=== PATIENT | female | born 1980 | race Caucasian/White ===

== ENCOUNTER 2025-04-10 15:33 | Emergency (ER) | payer BC, OTHER, SELFPAY ==
[2025-04-10 15:43] VITALS: BP 108/62; PULSE 93; RESP 16; TEMP 36.9; O2SAT 98
--- NOTE | 2025-04-10 16:11 | ED.EXTPRO ---
HPI - Extremity Problem General Chief complaint: Extremity Problem,Nontraumatic Stated complaint: Blood Clot/Knot R leg Time Seen by Provider: 04/10/25 15:57 Source: patient and RN notes reviewed Mode of arrival: ambulatory Limitations: no limitations History of Present Illness HPI Narrative: Patient presents today concerned that she may have a blood clot to her right anterior lower leg. Six days ago she was in her mobility scooter and struck her leg on the under part of a table. States it bruised immediately then became painful a few days ago. Today she noted a hard knot underneath the bruise. Patient takes Xarelto for factor 5 Leiden. States she has been on the Xarelto for approximately 10 years. She has had a DVT in the other leg while on the Xarelto. Related Data Home Medications ?Medication ?Instructions ?Recorded ?Confirmed ?Last Taken ?Type Belsomra 04/10/25 Unknown History Viibryd 04/10/25 Unknown History albuterol sulfate 2.5 mg/3 mL mg 04/10/25 Unknown History (0.083 %) solution for nebulization albuterol sulfate 90 mcg/actuation inhalation 04/10/25 Unknown History aerosol inhaler aripiprazole 2 mg tablet mg 04/10/25 Unknown History atorvastatin 10 mg tablet mg 04/10/25 Unknown History cyanocobalamin (vitamin B-12) mcg 04/10/25 Unknown History 1,000 mcg/mL injection solution erenumab-aooe 70 mg/mL mg subcut 04/10/25 Unknown History subcutaneous auto-injector (Aimovig Autoinjector) famotidine 20 mg tablet mg 04/10/25 Unknown History fentanyl 25 mcg/hr transdermal 04/10/25 Unknown History patch gabapentin 300 mg capsule mg 04/10/25 Unknown History methocarbamol 750 mg tablet mg 04/10/25 Unknown History metoprolol succinate 25 mg mg PO 04/10/25 Unknown History tablet,extended release 24 hr ondansetron HCl 4 mg tablet mg 04/10/25 Unknown History pantoprazole 40 mg tablet,delayed mg PO 04/10/25 Unknown History release prazosin 1 mg capsule mg 04/10/25 Unknown History rivaroxaban 20 mg tablet (Xarelto) mg 04/10/25 Unknown History rizatriptan 10 mg tablet mg 04/10/25 Unknown History ropinirole 2 mg tablet mg 04/10/25 Unknown History semaglutide 2 mg/dose (8 mg/3 mL) mg subcut 04/10/25 Unknown History subcutaneous pen injector (Ozempic) spironolactone 50 mg tablet mg 04/10/25 Unknown History trazodone 04/10/25 Unknown History Allergies Allergy/AdvReac Type Severity Reaction Status Date / Time No Known Allergies Allergy Verified 04/10/25 15:40 [facility] Past Medical History Medical History (Updated 04/10/25 @ 16:18 by Susan Leslie, [facility], ) High cholesterol Heart palpitations Migraines Chronic back pain Factor V Leiden Comments At time of signature, I have reviewed and agree with nursing past medical, surgical, social and family history unless otherwise noted. Please see nursing chart for further information. There is no relevant family history pertinent to the presenting complaint Exam Narrative: GENERAL: Well-appearing, well-nourished, and in no acute distress. HEAD: Normocephalic, atraumatic. EYES: EOMI. No redness or drainage. Conjunctivae normal. ENT: Mucous membranes pink and moist. NECK: Normal AROM. CHEST: No respiratory distress. EXTREMITIES: Right lex2cm area of ecchymosis to the proximal rehman that is tender and mildly firm to palpation. No edema of the leg. No erythema. Full range of motion of the knee and ankle. No discoloration. No tenderness to the calf. Distal sensation intact. Capillary refill. Pedal pulse normal. SKIN: Warm, dry, no rash. Capillary refill normal. Normal skin turgor. NEURO: No focal deficits. Alert and oriented x3. Gait steady. PSYCH: Normal affect. No signs of depression or anxiety. Course Course Level of Care: Express Care Visit Vital Signs Vital signs: Vital Signs Temperature 98.4 F 04/10/25 15:43 Pulse Rate 93 04/10/25 15:43 Respiratory Rate 16 04/10/25 15:43 Blood Pressure 108/62 04/10/25 15:43 Pulse Oximetry 98 04/10/25 15:43 Temperature 98.4 F 04/10/25 15:43 Pulse Rate 93 04/10/25 15:43 Respiratory Rate 16 04/10/25 15:43 Blood Pressure 108/62 04/10/25 15:43 Pulse Oximetry 98 04/10/25 15:43 Reviewed MDM - Extremity (Nontraumatic) MDM Narrative Medical decision making narrative: 44-year-old female patient with history of factor 5 Leiden presents today after striking her right rehman on a table 6 days ago resulting in a bruise to the leg immediately but did not develop pain until a few days afterwards. She noted a knot under the bruise today in became concerned that she may have a DVT. Patient currently takes Xarelto, but states she has had a DVT in the past while on Xarelto. Denies pain in the calf or foot. Upon exam there is a small bruise to the proximal rehman which is tender to palpation and slightly firm. No surrounding redness or swelling, or redness or swelling to the remainder of the leg or foot. Gave patient the option of going to the ED to get rx for Ultrasound to be done the next day as there is unlikely to be an sterile technician on site at this time of day, or going to the ED tomorrow for further evaluation, or calling her PCP on Saturday to schedule an outpatient ultrasound. Patient states she will call her PCP on Saturday. The location of the bruising on the anterior proximal rehman, the exam of the leg, and the fact that patient is already on Xarelto, in my opinion, make this injury low risk for DVT at this time. Strict ED precautions provided for patient. VSS. Differential Diagnosis Differential diagnosis: Likely cellulitis, deep vein thrombosis of lower extremity and other (Hematoma, contusion) Critical Care Time Critical Care Time Critical Care Time: No Discharge Plan Discharge Clinical Impression: Traumatic ecchymosis of right lower leg Qualifiers: Encounter type: initial encounter Qualified Code(s): S80.11XA - Contusion of right lower leg, initial encounter Patient Disposition: Home Condition: Stable Additional Instructions: Please either proceed to the emergency department tomorrow morning or follow-up with your PCP for further evaluation of your leg on Saturday. As discussed, if symptoms worsen to include shortness of breath, chest pain, swelling, redness, or other discoloration to your leg, please go to the ER immediately. Patient Language: Israeli Prescriptions: No Action albuterol sulfate 2.5 mg /3 mL (0.083 %) solution for nebulization atorvastatin 10 mg tablet prazosin 1 mg capsule ondansetron HCl 4 mg tablet rizatriptan 10 mg tablet famotidine 20 mg tablet methocarbamol 750 mg tablet ropinirole 2 mg tablet pantoprazole 40 mg tablet,delayed release (DR/EC) PO cyanocobalamin (vitamin B-12) 1,000 mcg/mL solution gabapentin 300 mg capsule metoprolol succinate 25 mg tablet extended release 24 hr PO fentanyl 25 mcg/hr patch 72 hour albuterol sulfate 90 mcg/actuation HFA aerosol inhaler INHALATION spironolactone 50 mg tablet aripiprazole 2 mg tablet Xarelto 20 mg tablet Aimovig Autoinjector 70 mg/mL auto-injector SUBCUT Ozempic 2 mg/dose (8 mg/3 mL) pen injector SUBCUT [facility]d tra[facility]odone [facility] Follow-up/Referrals: Kay Marie MD [Primary Care Provider] - Time of Disposition: 16:08
== END 2025-04-10 16:02 | disposition home or self-care (01) ==
PROVIDERS: Emergency Provider Nurse Practitioner; PCP Family Medicine
DX: S80.11XA Contusion of right lower leg, initial encounter (principal); W22.8XXA Striking against or struck by other objects, initial encounter; D68.51 Activated protein C resistance; E78.00 Pure hypercholesterolemia, unspecified; Z86.718 Personal history of other venous thrombosis and embolism; Z79.01 Long term (current) use of anticoagulants
CPT/HCPCS: 99202; G0463

== ENCOUNTER 2025-07-07 10:56 | Outpatient (CLI) | payer BC, OTHER, SELFPAY ==
--- OUTSIDE RECORDS SUMMARY | 2025-07-07 05:00 | XMS_ITS ---
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 108 (90 Base) MCG/ACT Aerosol Solution Inhalation Pregabalin 300 MG Capsule Oral Cyanocobalamin 1000 MCG/ML Solution Injection Rizatriptan Benzoate 10 MG Tablet Oral Naloxone HCl 4 MG/0.1ML Liquid Nasal HYDROcodone-Acetaminophen 5-325 MG Tablet Oral Vitamin D , Notes to Pharmacist: *Pick strength-form from [facility] for eRX*Xarelto 20 MG Tablet Oral Spironolactone 50 MG Tablet Oral Metoprolol Succinate ER 50 MG Tablet Extended Release 24 Hour Oral Nystatin 084591 UNIT/GM Powder External Ondansetron 4 MG Tablet Disintegrating Oral fentaNYL 12 MCG/HR Patch 72 Hour Transdermal Vilazodone HCl 20 MG Tablet 1 tablet with food Oral Once a day , Notes to Pharmacist: dose decreasePrazosin HCl 5 MG Capsule 2 capsules at bedtime Oral Once a day , stop date 10/05/2025traZODone HCl 150 MG Tablet 2 tablets at bedtime Oral Once a day Belsomra 20 MG Tablet 1 tablet at bedtime Orally Once a day , stop date 10/05/2025Qulipta 60 MG Tablet Oral Taking Miebo 1.338 GM/ML Solution 1 drop into affected eye as needed Ophthalmic Four times a day Taking Metoprolol Succinate ER 25 MG Tablet Extended Release 24 Hour Oral Taking Ozempic (1 MG/DOSE) 4 MG/3ML Solution Pen-injector Subcutaneous , Notes to Pharmacist: *Pick strength-form from [facility] for eRX*Taking Pregabalin 150 MG Capsule Oral Taking rOPINIRole HCl 2 MG Tablet Oral Taking oxyCODONE- Acetaminophen 5-325 MG Tablet Oral Taking Perphenazine 4 mg Tablet Oral Taking Atorvastatin Calcium 10 MG Tablet Oral Taking Famotidine 20 MG Tablet Oral Taking ProAir HFA 108 (90 Base) MCG/ACT Aerosol Solution Inhalation Taking Pregabalin 300 MG Capsule Oral Taking Cyanocobalamin 1000 MCG/ML Solution Injection Taking Rizatriptan Benzoate 10 MG Tablet Oral Taking Naloxone HCl 4 MG/0.1ML Liquid Nasal Taking HYDROcodone-Acetaminophen 5-325 MG Tablet Oral Taking Vitamin D , Notes to Pharmacist: *Pick strength-form from [employer] for eRX*Taking Xarelto 20 MG Tablet Oral Taking Spironolactone 50 MG Tablet Oral Taking Metoprolol Succinate ER 50 MG Tablet Extended Release 24 Hour Oral Taking Nystatin 718501 UNIT/GM Powder External Taking Ondansetron 4 MG Tablet Disintegrating Oral Taking fentaNYL 12 MCG/HR Patch 72 Hour Transdermal Taking Vilazodone HCl 20 MG Tablet 1 tablet with food Oral Once a day , Notes to Pharmacist: dose decreaseTaking Prazosin HCl 5 MG Capsule 2 capsules at bedtime Oral Once a day , stop date 10/05/2025Taking traZODone HCl 150 MG Tablet 2 tablets at bedtime Oral Once a day Taking Belsomra 20 MG Tablet 1 tablet at bedtime Orally Once a day , stop date 10/05/2025Taking Qulipta 60 MG Tablet Oral Not-TakingPrazosin HCl 1 MG Capsule 1 capsule at bedtime Orally Once a day take with prazosin 5mg capsulesPrazosin HCl 1 MG Capsule 1 capsule at bedtime Orally Once a day Medication List reviewed and reconciled with the patientNot-Taking Prazosin HCl 1 MG Capsule 1 capsule at bedtime Orally Once a day take with prazosin 5mg capsulesNot-Taking Prazosin HCl 1 MG Capsule 1 capsule at bedtime Orally Once a day Medication List reviewed and reconciled with the patient * Allergies: S ULFA (SULFONAMIDE ANTIBIOTICS): Allergy - Onset Date 11/18/2023Xanax: Allergy - Onset Date 11/18/2023yesAllergies Verified. Objective: * Vitals: B P:125/83mm Hg, HR:82/min, Wt:330lbs, Wt-k.69 kg, Ht: 72.00 in, Ht-cm: 182.88 cm, BMI:44.75Index, Body Surface Area: 2.75. * Examination: G eneral Examination: M ental Status Examination The patient appeared cooperative throughout the evaluation. Her speech was coherent and goal-directed as she provided a detailed chronological account of her symptoms and medical history. Her mood was described through her own words as experiencing periods where she want[s] to kill anyone and everything and hate[s] everything in the premenstrual period, contrasting with her normal state once menstruation begins. She described feeling really depressed and experiencing major depression during the premenstrual phase, though she clarified not that I want to kill myself. Her thought content revealed no current suicidal ideation, as she explicitly stated she does not want to kill herself presently. However, she disclosed a past history of suicidal and homicidal ideation, reporting a previous incident where she tried to kill myself and my mom and told her mother I want to harm you, which occurred during a severe adverse medication reaction. The patient demonstrated good insight into her condition, recognizing the cyclical nature of her symptoms in relation to her menstrual cycle and understanding that her existing mood disorder may be exacerbated premenstrually. Her judgment appeared intact as evidenced by her proactive approach to seeking help, planning for educational accommodations, and her ability to recognize when she needed assistance during her previous crisis. Assessment: * Assessment: 1. M ajor depressive disorder, recurrent, moderate - F33.1 (Primary) 2 . G eneralized anxiety disorder - F41.1 3 . C hronic posttraumatic stress disorder - F43.12 4 . N icotine use - Z72.0 5 . O ther insomnia - G47.09 6 . M ild binge-eating disorder - F50.810 Plan: * Treatment: 2. C hronic posttraumatic stress disorder Notes: cont prazosin 3. O ther insomnia Continue Prazosin HCl Capsule, 5 MG, 2 capsules at bedtime, Oral, Once a day, 30 days, 60 Capsule, Refills 3; C ontinue traZODone HCl Tablet, 150 MG, 2 tablets at bedtime, Oral, Once a day, 30 days, 60 Tablet, Refills 3; C ontinue Belsomra Tablet, 20 MG, 1 tablet at bedtime, Orally, Once a day, 30 days, 30 Tablet, Refills 3. 4. O thers Notes: Kim Arnold presents with worsening premenstrual symptoms over the past 5 months, including severe mood changes, irritability, increased appetite, and sleep disturbances occurring 1-2.5 weeks before menstruation, along with concerns about academic accommodations for upcoming school enrollment. Premenstrual mood exacerbation Assessment: Patient reports significant worsening of premenstrual symptoms starting approximately 5 months ago, with severe mood changes including irritability, anger, increased appetite, sadness, and sleep disturbances occurring 1-2.5 weeks before menstruation. Symptoms resolve once menstruation begins. Previously had mild PMS lasting only 3 days, but current presentation represents marked deterioration. Given existing mood disorder, this represents premenstrual mood exacerbation rather than isolated PMDD. Current medication regimen includes Venlafaxine which was recently lowered. SSRIs are typically preferred for PMDD treatment. Plan: - Taper Venlafaxine to 10 mg daily for one week, then discontinue - Start fluoxetine 20 mg daily - Consider increasing fluoxetine dose as needed once initiated Academic accommodation needs Assessment: Patient enrolled for school next semester and has physical disability, learning disabilities, and PTSD. Concerned about potential academic challenges and stress management. History suggests attention problems that may benefit from testing accommodations. Plan: - Refer for learning disability testing (not available at current facility) - Consider accommodations including recording lectures, separate testing area, extended testing time, and breaks during testing Menstrual irregularities Assessment: Patient reports menstrual cycle changes with periods now occurring every 3 weeks, compared to previous amenorrhea related to PCOS. Currently in perimenopause with planned blood work evaluation by plastics scientist. Plan: - Blood work as arranged by plastics scientist the note is transcribed using speech recognition software. It is a reflection of a visit with the patient. It might have some inaccuracy, including medication names and transcribing errors, though efforts have been made to correct them. * Procedure Codes: 9 6127 BEHAV ASSMT W/SCORE & DOCD/STAND [id number] TOBACCO NON-USER * Preventive Medicine: Screenings: D epression screening Have you had a recent depression screening? Y es * Follow Up: 4 Weeks (Reason: f/u depression, anxiety) Billing Information: * Visit Code: 90471 OFFICE OUTPATIENT VISIT 25 MINUTES DETAILED HISTORY AND EXAM/MODERATE MEDICAL DECISION MAKING. * Procedure Codes: 57882 BEHAV ASSMT W/SCORE & DOCD/STAND INSTRUMENT. 1036F TOBACCO NON-USER. * Sign off status: Completed true * Provider: HAYLEY GAITAN Date: Generated for Melissa lopes/Abran/Angelita on: 12:29 PM CDT
--- OUTSIDE RECORDS SUMMARY | 2025-07-07 12:29 | XMS_ITS | Clinical Summary ---
Author Organization [facility] Address [address] [place] [address] Care Team Providers Care Cnc Mill Operator Name Role Phone Kay Marie MD Primary Care Provider [phone] Trice Alas PA-C Unavailable [phone] Source Comments [facility],non-owned Affiliates and Associated Physician Practices is amultiple site organization consisting of ambulatory clinics and hospital sitesin [place], [place], [place] and [place]. This disclosure is being madepursuant to the Care Everywhere program and may not contain all information available regarding this patient. Last updated 18.[facility] [employer] Allergies Active Allergy Reactions Criticality Noted Date Comments Clarithromycin Anaphylaxis High 05/29/2013 Cyclobenzaprine Eye Discomfort,Unknown 10/01/19 25 EYE SWELLING Erythromycin Anaphylaxis High 05/29/2013 And related medications Fish Allergy Unknown 09/11/2024 Prednisone Psychiatric High 05/29/2013 Makes the patient Suicidal or Homicidal Rofecoxib Other 05/18/2013 unknown Shellfish Unknown 09/11/2024 Skin Adhesives Rash Medium 08/20/2024 Plastic tape Sulfa Drugs Urticaria Medium 10/27/2018 Midazolam Psychiatric Medium 08/20/2024 Emotional, panic attack Medications * Be aware that medications may not be up to date on this document. Alwaysverify current medications with the patient. PROAIR HFA 108 (90 Base) MCG/ACT inhaler Inhale 1 (one) puff by mouth every 6 hours as needed 0 12/20/19 19 Active traZODone (DESYREL) 300 MG Take 1 (one) tablet by mouth at bedtime Active atorvastatin (Lipitor) 10 MG tablet Take 1 (one) tablet by mouth once daily 12/11/19 23 Active cyanocobalamin (Vitamin B-12) injection Inject 1,000 (one thousand) mcg subcutaneously every 30 days 09/25/19 24 Active prazosin (Minipress) 1 MG capsuleIndicati ons:Nightmares Take 11 (eleven) capsules by mouth at bedtime Reasons: Frightening Dreams 06/05/20 24 Active vilazodone (Viibryd) 40 MG tablet Take 1 (one) tablet by mouth daily with breakfast 01/14/20 24 Active famotidine (Pepcid) 20 MG tablet Take 1 (one) tablet by mouth 2 times daily for 30 days 60 tablet 09/17/19 25 Active lidocaine (Lidoderm) 5 % patch Apply 2 (two) patches to skin every 24 hours for 15 days Apply patch to most painful area and remove after 12 hours. May reapply a new patch 12 hours later. 30 patch 5 5:52 PM SENIOR HEALTH PHYSICS TECHNICIAN 09/17/19 25 Active rOPINIRole (Requip) 2 MG tablet Take 1 (one) tablet by mouth at bedtime for 30 days 30 tablet 5 5:52 PM SENIOR HEALTH PHYSICS TECHNICIAN 09/17/19 25 Active gabapentin (Neurontin) 300 MG capsule Take 1 (one) capsule by mouth 2 times daily for 15 days 30 capsule 5 5:52 PM SENIOR HEALTH PHYSICS TECHNICIAN 09/17/19 25 Active acetaminophen (Tylenol) 500 MG tabletIndicatio ns:Pain Take 2 (two) tablets by mouth every 8 hours Maximum allowable Acetaminophen amount = 4 Grams (4000 mg) / 24 hours. Reasons: Pain 09/17/19 25 Active oxyCODONE, immediate release, (Oxy-Ir) 15 MG tabletIndicatio ns:Acute Pain Take 1 (one) tablet by mouth every 4 hours as needed Reasons: Acute Pain 20 tablet 5 5:52 PM SENIOR HEALTH PHYSICS TECHNICIAN 09/17/19 25 Active ramelteon (Rozerem) 8 MG tablet Take 1 (one) tablet by mouth nightly as needed for Insomnia Active bisacodyl (Dulcolax) 10 MG suppository Insert 1 (one) suppository into the rectum once daily as needed for Constipation 30 suppository 3 10/09/19 25 Active hydrOXYzine HCl (Atarax) 25 MG tablet Take 1 (one) tablet by mouth 3 times daily as needed for Itching 30 tablet 2 10/09/19 25 Active magnesium oxide (Mag-Ox) 400 MG tablet Take 1 (one) tablet by mouth 2 times daily 10/09/19 25 Active methocarbamol (Robaxin) 750 MG tablet Take 2 (two) tablets by mouth every 8 hours 90 tablet 5 10/09/19 25 Active nystatin (Mycostatin) 979270 UNIT/GM powder Apply to affected area 3 times daily 15 g 3 10/09/19 25 Active rivaroxaban (Xarelto) 20 MG tablet Take 1 (one) tablet by mouth daily with food 30 tablet 3 10/09/19 25 Active fentaNYL (Duragesic) 12 MCG/HR patch Apply 1 (one) patch to skin every 3 days 08/01/20 24 Active dexAMETHasone (Decadron) 2 MG tablet 01/22/20 25 Active Aimovig 70 MG/ML auto injector pen 02/18/20 25 Active naloxone HCl (Narcan) 4 MG/0.1ML nasal spray 12/23/19 24 Active omeprazole (PriLOSEC) 40 MG capsule 04/02/20 24 Active ondansetron, disintegrating, (Zofran ODT) 4 MG tablet Take 1 (one) tablet by mouth every 8 hours as needed 11/27/19 25 Active ondansetron (Zofran) 4 MG tablet 09/24/19 25 Active oxyCODONE-aceta minophen (Percocet) 10-325 MG tablet 12/19/19 24 Active Nurtec 75 MG tablet 11/02/19 25 Active Ozempic, 0.25 or 0.5 MG/DOSE, 2 MG/3ML SOPN 10/29/19 25 Active spironolactone (Aldactone) 50 MG tablet 01/19/20 25 Active Belsomra 15 MG tablet 1 tablet at bedtime as needed Orally Once a day for 30 days 11/11/19 25 Active Belsomra 20 MG tablet 1 tablet at bedtime Orally Once a day for 30 days 12/17/19 25 Active fentaNYL (Duragesic) 25 MCG/HR patch 12/31/19 24 Active fentaNYL (Duragesic) 25 MCG/HR patch 02/10/20 25 Active metoprolol succinate XL 24hr (Toprol XL) 50 MG tablet 02/09/20 25 Active prazosin (Minipress) 5 MG capsule 01/26/20 25 Active rOPINIRole (Requip) 1 MG tablet 12/12/19 24 Active traZODone (Desyrel) 150 MG tablet 01/26/20 25 Active Active Problems Problem Noted Date Diagnosed Date Chronic posttraumatic stress disorder 10/03/2024 Generalized anxiety disorder 10/03/2024 Moderate recurrent major depression 10/03/2024 Polyneuropathy due to type 2 diabetes mellitus 0 10/03/2024 Elevated C-reactive protein (CRP) 10/01/2024 Elevated sed rate 10/01/2024 Midline low back pain, unspe cified chronicity, unspecified whether sciatica present 10/01/2024 Gram-negative bacteremia 09/07/2024 Lumbar discitis 09/05/2024 T12 compression fracture 09/05/2024 Primary hypertension 09/05/2024 Hyperlipidemia 09/05/2024 Vulvovaginal candidiasis 09/05/2024 Antiphospholipid syndrome 09/05/2024 Lumbar pain 09/04/2024 History of DVT (deep vein thrombosis) 03/26/2022 Closed fracture of transverse process of lumbar vertebra 12/16/2020 Overview (10/03/2024): L2 bilateral non-displaced Transverse Process fractures Chronic pain of left knee 01/11/2020 Spinal stenosis of lumbar re gion without neurogenic claudication 02/24/2019 Acute bilateral low back pain with bilateral sci atica 02/18/2019 Anxiety 09/17/2018 Depression 09/17/2018 PCOS (polycystic ovarian syndrome) 09/17/2018 Thrombus 09/17/2018 Diverticulitis 11/05/2016 BIRCH (nonalcoholic steatohepatitis) 11/05/2016 Class 3 severe obesity in adult 11/05/2011 Hidradenitis suppurativa 09/24/2011 Encounters Date Type Department Care Team Description 05/12/2025 Refill [facility] 6S ACUTE [address] [place] [address] Jenny Acevedo MD Refill Request 04/07/2025 10:00 AM CDT Office Visit [facility] [address] [place] [phone] Ulices Colon MD Hunter, Kristen D, HELPDESK SPECIALIST-PERSONAL PROPERTY APPRAISER Cervical radiculopathy (Primary Dx); S/P lumbar microdiscectomy 04/07/2025 Travel from Last 3 Months Immunizations Immunization Administration Dates Next Due Covid Pfizer primary monoval ent 12+ yr 0.3mL Purple cap 09/21/2021,09/09/2021,08/09/2021,2020 FLU VACCINE QUAD IIV4 PF ID 09/17/2018 INFLUENZA VACCINE 06/09/2019,09/09/2018,05/30/20 13 INFLUENZA VACCINE, QUADR. (F LUZONE; FLULAVAL; FLUARIX; AFLURIA QUADRIVALENT; 6MO+), 0.5 ML (IIV4) 07/09/2023,07/02/2022,08/08/2021,2018 PNEUMOCOCCAL PPV VACCINE 05/19/2016 Family History Medical History Relation Name Comments Arthritis - Osteo Father 56 Arthritis - Osteo Mother 69 Arthritis - Rheumatoid Mother 69 Asthma Mother 69 CAD (Coronary Artery Disease) Mother 69 COPD - Chronic Obstructive Pulmonary Disease Mother 69 Diabetes - Type 2 Mother 69 Hypertension Mother 69 Other - Psychiatric Mother 69 Renal Disease Mother 69 Relation Name Status Comments Brother 46 COMMITTED SUICI DE Father 56 COMMITTED SUICI DE Mother 69 Social History Tobacco Use Types Packs/Day Years Used Date Smoking Tobacco: Never Smokeless Tobacco: Never Tobacco Cessation:Counseling Given: Not Answered Alcohol Use Standard Drinks/Week Comments No 0 (1 standard drink = 0.6 oz pur e alcohol) AUDIT-C Answer Date Recorded Q1: How often do you have a drink containing alcohol? Never 10/03/2024 Q2: How many drinks containi ng alcohol do you have on a typical day when you are drinking? Patient does not drink Q3: How often do you have si x or more drinks on one occasion? Never 10/03/2024 Overall Financial Resource Strain (CARDIA) Answe r Date Recorded How hard is it for you to pa y for the very basics like food, housing, medical care, and heating? Not very hard 10/03/2024 PHQ-2 Answer Date Recorded Patient Health Questionnaire-2 Score 0 02/18/2025 [facility] [place] [facility] - Occupational Stress Questionnaire Answer Date Recorded Do you feel stress - tense, restless, nervous, or anxious, or unable to sleep at night because your mind is troubled all the time - these days? To some extent 10/03/2024 Hunger Vital Sign Answer Date Recorded Within the past 12 months, y ou worried that your food would run out before you got the money to buy more. Never true 10/03/19 Within the past 12 months, t he food you bought just didn't last and you didn't have money to get more. Never true 10/03/2024 PRAPARE - Transportation Answer Date Re corded In the past 12 months, has l ack of transportation kept you from medical appointments or from getting medications? No 09/10 In the past 12 months, has l ack of transportation kept you from meetings, work, or from getting things needed for daily living? No 10/03/2024 Housing Stability Vital Sign Answer Tuan e Recorded In the last 12 months, was t here a time when you were not able to pay the mortgage or rent on time? No 10/03/2024 In the past 12 months, how m any times have you moved where you were living? 0 10/03/2024 At any time in the past 12 m [facility], were you homeless or living in a penitentiary (including now)? No 10/03/2024 Comments No Sex and Gender Information Value Date Recorded Sex Assigned at Not on file Legal Sex Female 9:57 AM CDT Gender Identity Not on file Sexual Orientation Not on file Occupation Industry Job Start Date Job End Date Student Not on file Not on file Not on file Last Filed Vital Signs Vital Sign Reading Time Taken Comments Blood Pressure 103/65 04/07/2025 10:02 AM CDT Pulse 75 04/07/2025 10:02 AM CDT Temperature 36.6 C (97.9 F) 02/22/2025 11:18 AM CDT Respiratory Rate 20 11/19/2024 9:58 AM CDT Oxygen Saturation 94% 02/22/2025 11:18 AM CDT Inhaled Oxygen Concentration 22% 10/06/2024 1 0:45 AM SENIOR HEALTH PHYSICS TECHNICIAN Weight 147.4 kg (325 lb) 04/07/2025 10:02 AM CDT Height 182.9 cm (6') 04/07/2025 10:02 AM CDT Body Mass Index 44.08 04/07/2025 10:02 AM CDT Plan of Treatment Health Maintenance Due Date Last Done Comments MAMMOGRAM 1980 HIV SCREENING 1995 DTAP/TDAP/TD VACCINES (1 - Tdap) 1999 HEPATITIS B VACCINE (1 of 3 - 19+ 3-dose series) 1999 PAP SMEAR 2001 HPV VACCINE (1 - 3-dose SCDM series) 2007 PNEUMOCOCCAL VACCINE (2 of 2 - PCV) 05/19/2017 05/19/2016 DIABETES - URINE PROTEIN SCREENING 09/09/2024 DIABETES RETINOPATHY SCREENING 10/03/2024 DIABETES-FOOT EXAM WITH MONOFILAMENT 10/03/2024 DIABETES-HGB A1C 10/03/2024 05/30/2013 COVID-19 VACCINE ( season) 2025 09/21/2021, 09/09/2021, 08/09/2021, Additional history exists INFLUENZA VACCINE (#1) 2025 , 07/02/2022, 08/08/2021, Additional history exists DIABETES-SERUM CREATININE 10/09/20252024, 10/08/2024, 10/07/2024, Additional history exists ZOSTER VACCINE (1 of 2) 2030 HEPATITIS C SCREENING Completed 08/06/2016 DEPRESSION SCREENING Completed 02/18/2025 HIB VACCINE Aged Out No longer eligi ble based on patient's age to complete this topic MENINGOCOCCAL (Group B) VACCINE SHARED DECISION-MAKING Aged Out No longer eligible based on patient's age to complete this topic MENINGOCOCCAL GROUPS A/C/Y/W VACCINE Aged Out No longer eligible based on patient's age to complete this topic Procedures Procedure Name Priority Date/Time Associated Diagnosis Comments COMPREHENSIVE METABOLIC PANEL AM Draw 10/09/2024 5:46 AM SENIOR HEALTH PHYSICS TECHNICIAN HEPATITIS C ANTIBODY Routine 08/06/2016 4:34 PM SENIOR HEALTH PHYSICS TECHNICIAN HEMOGLOBIN A1C Routine 05/30/2013 6:10 AM CDT Back pain Intractable back pain from Last 3 Months or Most Recently Relevant to Health Maintenance Results * (ABNORMAL) COMPREHENSIVE METABOLIC PANEL (10/09/2024 5:46 AM [facility]) BUN 9 7 - 26 mg/dL 10/09/2024 7:14 AM [facility] Creatinine 0.45(L) 0.56 - 0.96 mg/dL 10/09/2024 7:14 AM [facility] Sodium 138 136 - 145 mmol/L 10/09/2024 7:14 AM [facility] Potassium 4.2 3.5 - 4.5 mmol/L 10/09/2024 7:14 AM [facility] Chloride 106 98 - 107 mmol/L 10/09/2024 7:14 AM [facility] CO2 24 22 - 29 mmol/L 10/09/2024 7:14 AM [facility] Glucose 105(H) 70 - 99 mg/dL 10/09/2024 7:14 AM [facility] Calcium 8.9 8.4 - 10.2 mg/dL 10/09/2024 7:14 AM [facility] Protein Total 6.0 6.0 - 8.3 g/dL 10/09/2024 7:14 AM [facility] Albumin 2.6(L) 3.4 - 5.0 g/dL 10/09/2024 7:14 AM [facility] Bilirubin Total 0.3 0.2 - 1.2 mg/dL 10/09/2024 7:14 AM [facility] Alkaline Phosphatase 71 40 - 150 U/L 10/09/2024 7:14 AM [facility] ALT 13 5 - 55 U/L 10/09/2024 7:14 AM [facility] AST 14 5 - 34 U/L 10/09/2024 7:14 AM [facility] Anion Gap 8 6 - 16 10/09/2024 7:14 AM [facility] BUN/Creatinine Ratio 20 7 - 23 10/09/2024 7:14 AM [facility] Osmolality Calculated 285 275 - 295 mOsm/kg 10/09/2024 7:14 AM [facility] Albumin/Globulin Ratio 0.8(L) 1.1 - 2.3 10/09/2024 7:14 AM [facility] eGFR by CKD-EPI >90 >=90 mL/min/1.7 3 m2 10/09/2024 7:14 AM [facility] Blood BLOOD SPECIMEN / Unknown Lab Venipuncture / Unknown 10/09/2024 5:46 AM SENIOR HEALTH PHYSICS TECHNICIAN 10/09/2024 6:21 AM SENIOR HEALTH PHYSICS TECHNICIAN Do Alfaro MD LAB - CHEMISTRY ORD ERABLES Final Result Performing Organization Address City/[facility]/ZIP Co de Phone Number [facility] [address] [place] [address], [facility] [phone] * HEPATITIS C ANTIBODY (08/06/2016 4:34 PM SENIOR HEALTH PHYSICS TECHNICIAN) Pathologist [facility] Hepatitis C Antibody Non-react [facility] Comment: Hepatitis C Antibody screen indicates no serologic evidence of past or current infection with Hepatitis C Virus. Patients with unexplained liver disease who are immunocompromised or suspected of having acute Hepatitis C infection may benefit from Nucleic Acid Test (TARA) for Hepatitis C Viral RNA to confirm Hepatitis C status. Blood specimen (specimen) BLOOD SPECIMEN / Unknown 08/06/2016 4:34 PM SENIOR HEALTH PHYSICS TECHNICIAN 08/06/2016 4:51 PM SENIOR HEALTH PHYSICS TECHNICIAN Jerry Da Silva MD LAB - CHEMISTRY ORDERABLES Rafia l Result [facility] [address] [place] [address], [facility] [phone] * HEMOGLOBIN A1C (05/30/2013 6:10 AM CDT) Pathologist [facility] Hemoglobin A1c 6.2 4.2 - 6.3 % 05/30/2013 6:52 AM CDT [facility] Estimated Average Glucose 131 mg/dL 05/30/2013 6:52 AM CDT [facility] Whole Blood BLOOD SPECIMEN WITH EDTA / Unknown 05/30/2013 6:10 AM CDT 05/30/2013 6:20 AM CDT Kenney Orosco MD LAB - CHEMISTRY ORDERABLES Final Result [facility] [address] [place] [address] from Last 3 Months or Most Recently Relevant to Health Maintenance Insurance [employer] [address] [facility] Address: [facility] [id number] [place] [address] [employer] Advance Directives * Full Code (Latest Code Status on File) Date Activated Date Inactivated Comments 10/02/2024 1:28 AM 10/09/2024 8:03 PM * Full Code Date Activated Date Inactivated Comments 09/04/2024 11:27 AM 09/17/2024 7:43 PM * Full Code Date Activated Date Inactivated Comments 02/24/2019 4:59 AM 02/25/2019 4:08 PM * Full Code Date Activated Date Inactivated Comments 02/18/2019 7:14 PM 02/20/2019 1:48 PM * FULL RESUSCITATION Date Activated Date Inactivated Comments 05/29/2013 3:19 PM 06/03/2013 7:02 PM Care Teams Cnc Mill Operator Relationship Specialty Start Date End Date Kay Marie MD [address] [place] [address] PCP - General 11/28/20 Trice Alas, SERGEYC [address] [place] [address] Physician Automobile Inspector Infectious Disease 12/24/24
--- OUTSIDE RECORDS SUMMARY | 2025-07-07 12:30 | XMS_ITS | Patient Health Record ---
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 Kay Marie Unavailable [phone] Pepito Leung Unavailable [phone] Kay Padilla Unavailable [phone] Dr. Ranjan Patterson Unavailable [phone] Migration, Provider Unavailable Unavailable Dr. Faby Tiwari Unavailable [phone] Allergies Allergen (clinical drug ingredient) Drug/Non Drug Allergy documented on EMR Reaction Allergy Type Onset Date Status azithromycin Azithromycin anaphylaxis Drug Allergy Active Biaxin anaphylaxis Drug Allergy 01/24/2021 Acti ve erythromycin Erythromycin Unknown Drug Allergy 02/13/2021 Active Magnesium Delete Reason: pt currently taking mag and no allergic reaction noted Drug Allergy 04/02/2024 Inactive methocarbamol Methocarbamol nausea, dizziness Drug Allergy 09/18/2023 Active predniSONE Unknown Drug Allergy 02/12/2021 Activ e topiramate Topamax hair loss Drug Allergy 05/29/2023 Activ e propranolol Propranolol Unknown Drug Allergy 02/12/2021 Ac tive Substance with sulfonamide structure and antibacterial mechanism of action (substance) Sulfa Antibiotics hives Drug Allergy 01/24/2021 Active tirzepatide Mounjaro Unknown Drug Allergy 06/26/2024 Acti ve Results Component Value Reference Range Flag Notes IH COVID BD VERITOR Reviewed date:08/05/2024 12:00:00 AM Interpretation: Performing Lab: Notes/Report: Hemoglobin A1c {Glycosylated } Reviewed date:12/15/2024 01:36:54 PM Interpretation: Performing Lab: Notes/Report: Test Performed by: [place] [id number] Merchandise Worker: Derick Santana DO Hemoglobin A1c 5.3 <=6.4 % Hemoglobin A1C < 5.7% = Normal 5.7-6.4% = Increased risk for future diabetes >=6.5% = Diabetes eAvg Glucose 105 <=117 mg/dL eAG Reference Range <117 mg/dL = Normal 117-137 mg/dL = Increased Risk For Future Diabetes >137 mg/dL = Diabetes CBC w Auto Diff Reviewed date:12/15/2024 01:36:54 PM Interpretation: Performing Lab: Notes/Report: Test Performed by: [place] [id number] Merchandise Worker: Derick Santana DO WBC 7.7 4.0-11.7 K/mcL RBC 4.74 3.80-5.41 x10*6/mcL Hgb 13.6 11.3-15.2 g/dL Hct 40.1 33.2-45.3 % MCV 84.7 79.5-98.1 fL MCH 28.7 27.0-34.2 pg MCHC 33.9 31.8-35.3 g/dL RDW 14.1 12.0-16.4 % Platelets 357 149-393 K/mcL MPV 9.0 7.0-11.0 fL Neutro Auto 71.9 45.3-79.0 % Lymph Auto 18.7 11.8-45.9 % Tate Auto 6.9 4.4-12.0 % Eosinophil Auto 1.7 0.0-6.3 % Basophil Auto 0.8 0.2-1.6 % Neutro Absolute 5.5 2.4-8.4 x10*3/mcL Lymph Absolute 1.4 0.8-3.7 x10*3/mcL Tate Absolute 0.5 0.3-1.1 x10*3/mcL Eos Absolute 0.1 0.0-0.5 x10*3/mcL Baso Absolute 0.1 0.0-0.1 x10*3/mcL Comprehensive Metabolic Pane l Reviewed date:12/15/2024 01:36:54 PM Interpretation: Performing Lab: Notes/Report: Test Performed by: Judy Springer [place] [id number] Merchandise Worker: Derick Santana DO Glucose Lvl 117 74-109 mg/dL H ADA risk stratification for diabetes <100 mg/dL = Normal 100-125 mg/dL = Increased risk for future diabetes >=126 mg/dL = Diabetes, if on more than one testing occasion BUN 14 7-25 mg/dL Creatinine Lvl 0.72 0.60-1.20 mg/dL eGFR CKD-EPI >90 >=90 mL/min/1.73 m2 The CKD-EPI equation is validated in individuals 18 years of age and older. It is less accurate in patients with extremes of muscle mass, restriction of dietary protein, ingestion of creatine, extra-renal metabolism of creatinine, or treatment with medications that affect renal tubular creatinine secretion. GFR Categories in Chronic Kidney Disease (CKD) GFR GFR (mL/min/1.73 Category: square meters): Interpretation: G1 90 or greater Normal or high* G2 60-89 Mild decrease* G3a 45-59 Mild to moderate decrease G3b 30-44 Moderate to severe decrease G4 15-29 Severe decrease G5 14 or less Kidney failure *In the absence of evidence of kidney damage, neither GFR category G1 nor G2 fulfill the criteria for CKD (Kidney Int Suppl 2013;3:1-150) Calcium Lvl 9.2 8.6-10.3 mg/dL Sodium Lvl 135 136-145 mmol/L L Potassium Lvl 4.5 3.5-5.1 mmol/L Chloride Lvl 100 98-107 mmol/L CO2 26 21-31 mmol/L Anion Gap 9.0 <=16.0 mmol/L Alk Phos 83 34-104 unit/L Bilirubin Total 0.5 0.3-1.0 mg/dL Albumin Lvl 4.2 3.5-5.2 g/dL Protein Total 6.8 6.4-8.9 g/dL Albumin/Globulin Ratio 1.6 1.1-2.5 ALT 10 7-52 unit/L AST 13 13-39 unit/L Lipid Panel {Chol, Trig, HDL , LDL} Reviewed date:12/15/2024 01:36:54 PM Interpretation: Performing Lab: Notes/Report: Test Performed by: Judy Springer [address] [address] Merchandise Worker: Derick Santana DO Cholesterol Total 142 <=199 mg/dL Triglycerides 107 0-149 mg/dL Triglyceride Reference Ranges: <150 mg/dL Normal 150 - 199 mg/dL Borderline High 200 - 499 mg/dL High >=500 mg/dL Very High LDL 68 <=100 mg/dL LDL Optimal: <100 Near or above optimal: 100-129 Borderline high: 130-159 High: 160-189 Very high: >=190 Coronary heart disease risk factors should be considered when determining LDL goals. Please refer to ATPIII guidelines for further information. If LDL is not calculated, please call the lab to add on the direct LDL methodology, if desired. HDL 53 23-92 mg/dL Non HDL Cholesterol 89 <=130 mg/dL Chol/HDL 3 0-5 Coronary Risk 37 Coronary Risk Factor - Male Dangerous Risk: <7 % High Risk: 7-15 % Average Risk: 15-25 % Below Average Risk: 25-37 % Coronary Risk Factor - Female Dangerous Risk: <12 % High Risk: 12-18 % Average Risk: 18-27 % Below Average Risk: 27-40 % Magnesium Reviewed date:12/15/2024 01:36:54 PM Interpretation: Performing Lab: Notes/Report: Test Performed by: [place] [address] Merchandise Worker: Derick Santana DO Magnesium Lvl 1.7 1.6-2.4 mg/dL Vitamin B12 Reviewed date:12/15/2024 01:36:54 PM Interpretation: Performing Lab: Notes/Report: Test Performed by: [place] [id number] Merchandise Worker: Derick Santana DO Vitamin B12 Lvl 451 180-914 pg/mL Vitamin B12 Interpretation: Normal Range: 180-914 pg/mL Indeterminate: 140-180 pg/mL Deficient: <140 pg/mL Free T4 And TSH Reviewed date:12/15/2024 01:36:54 PM Interpretation: Performing Lab: Notes/Report: Test Performed by: [place] [id number] Merchandise Worker: Derick Santana DO T4 Free 1.00 0.60-1.70 ng/dL TSH 1.57 0.45-5.33 mcIU/mL MRI : Knee, left Reviewed date:01/19/2025 03:12:25 PM Interpretation: Performing Lab: Notes/Report: CT ABD+PEL WO CON Reviewed date:06/07/2025 02:49:18 PM Interpretation: Performing Lab: Notes/Report: [address] [place] [id number] CT abdomen and pelvis without IV contrast Comparison: CT abdomen and pelvis 11/26/2024. Indication: Abdomen & Back Pain. Technique: CT imaging of the abdomen and pelvis was performed without intravenous contrast. Coronal and sagittal reformatted images were generated and reviewed. A dose lowering technique was utilized for this procedure which may include but is not limited to dose reduction techniques, automated exposure control, and/or the use of iterative reconstruction in accordance with ALARA principle. Findings: Limited assessment given the lack of IV contrast, particularly of the solid organs, bowel, and vasculature. - Lower Thorax: No suspicious pulmonary abnormalities. No pleural or pericardial effusions. - Liver: Unremarkable noncontrast appearance. - Biliary and Gallbladder: No intrahepatic or extrahepatic bile duct dilatation. The gallbladder is surgically absent. - Spleen: Normal in size. - Pancreas: Unremarkable noncontrast appearance. - Adrenal Glands: Normal. - Kidneys: Symmetric in size. No renal stones. No hydronephrosis. - Abdominal and Pelvic Vasculature: No abdominal aortic aneurysm. Mild atherosclerotic plaque. - Gastrointestinal Tract: Postsurgical changes of sleeve gastrectomy. No evidence of bowel obstruction. Colonic diverticulosis without evidence for diverticulitis. The appendix is within normal limits. - Peritoneum/Mesentery/Retroperitoneum: No free fluid. No free intraperitoneal air. - Lymph Nodes: No retroperitoneal, mesenteric, or pelvic lymphadenopathy. - Bladder: Normal in appearance. - Pelvic Organs: Stable appearance of the uterus and adnexa. Left adnexal cyst measuring 4.4 cm. This is stable from prior study. - Body Wall: Postsurgical changes in the ventral abdominal wall with surgical clips. - Musculoskeletal: No aggressive appearing osseous lesions. Severe degenerative disc disease at L2-L3 with endplate sclerosis. This is similar to prior study 11/26/2024. Impression: 1. Within limitations of noncontrast date, no acute findings identified within the abdomen or pelvis. No urinary tract stones or hydronephrosis. Normal appendix. 2. Left adnexal cyst 4.4 cm. Recommend follow-up pelvic ultrasound in 2-6 months. 3. Severe degenerative disc disease at L2-L3, similar to prior study. Referred By: Interpreted By: Herb Strickland MD, 06/05/2025 11:29 AM X ray : Thumb Reviewed date:04/13/2025 02:22:31 PM Interpretation: Performing Lab: Notes/Report: MRI : Cervical without Contr ast Reviewed date:05/25/2025 09:02:02 AM Interpretation: Performing Lab: Notes/Report: Urine Culture Reviewed date:04/01/2025 03:10:04 PM Interpretation: Performing Lab: Notes/Report: Test Performed by: [place] [address] Merchandise Worker: DO Joyce Blandon Urine See Below Final 50,000 cfu/ml Escherichia coli 50,000 cfu/ml Enterococcus faecalis ORGANISM Escherichia coli ORGANISM Enterococcus faecalis ORGANISM Escherichia coli ANTIBIOTIC DEVEN DILUTN DEVEN INTERP Amoxicillin/Clavulanate >16/8 Resistant Ampicillin >16 Resistant Cefazolin 16 Intermediate Cefepime <=2 Susceptible Ceftazidime <=1 Susceptible Ceftriaxone <=1 Susceptible Ciprofloxacin <=0.25 Susceptible Gentamicin <=4 Susceptible Levofloxacin <=0.5 Susceptible Nitrofurantoin <=32 Susceptible Tobramycin <=4 Susceptible Trimethoprim/Sulfa <=2/38 Susceptible ORGANISM Enterococcus faecalis ANTIBIOTIC DEVEN DILUTN DEVEN INTERP Ampicillin <=2 Susceptible Ciprofloxacin <=1 Susceptible Gentamicin synergy <=500 Susceptible Levofloxacin <=1 Susceptible Nitrofurantoin <=32 Susceptible Penicillin 2 Susceptible Streptomycin synergy <=1000 Susceptible Tetracycline >8 Resistant Vancomycin 1 Susceptible Urinalysis Reviewed date:03/31/2025 07:24:59 PM Interpretation: Performing Lab: Notes/Report: Urine-Color pale yello Appearance cloudy Specific Enterprise 1.000 pH 6.5 Glucose neg Urine Protein trace Occult Blood neg Bilirubin neg Urobilinogen,Semi-Qn .2 Nitrite, Urine neg Ketones trace Leucocyte Esterase large MRI : Brain with and without contrast Reviewed date:05/25/2025 09:01:24 AM Interpretation: Performing Lab: Notes/Report: X ray : Foot, left Reviewed date:03/03/2025 04:00:58 PM Interpretation: Performing Lab: Notes/Report: CT Scan : Soft Tissue Neck W Contrast [id number] Reviewed date:01/21/2025 11:27:13 AM Interpretation: Performing Lab: Notes/Report: Basic Metabolic Panel (8) Reviewed date:01/21/2025 11:39:53 AM Interpretation: Performing Lab: Notes/Report: CBC With Differential/Platel et Reviewed date:01/21/2025 11:43:26 AM Interpretation: Performing Lab: Notes/Report: Vitamin D 25 Hydroxy Reviewed date:12/15/2024 01:36:54 PM Interpretation: Performing Lab: Notes/Report: Test Performed by: [place] [address] Merchandise Worker: Derick Santana DO Vitamin D 25 OH 79 30-100 ng/mL Vitamin D25 Interpretation: Deficient: <= 20 ng/mL Insufficient: 21-29 ng/mL Sufficient: 30-100 ng/mL Upper Safety Limit: >100 ng/mL Rheumatoid Factor Reviewed date:04/18/2025 06:31:59 PM Interpretation: Performing Lab: Notes/Report: Test Performed by: [place] [address] Merchandise Worker: Derick Santana DO Rheumatoid Factor <10.0 0.0-13.9 IntlUnit/mL Cyclic Citrullinated Peptide Ab, IgG IgA-ARUP Reviewed date:04/20/2025 04:06:00 PM Interpretation: Performing Lab: Notes/Report: Test Performed by: [place] [address] Merchandise Worker: Derick Santana DO Cyclic Citrullinated Peptide (CCP) See Below Chart Name Results Units Flag Ref Range Cyclic Citrul. Peptide Ab, IgG/A 7 0-19 INTERPRETIVE INFORMATION: Cyclic Citrullinated Peptide Ab, IgG/A 19 Units or less ................... Negative 20-39 Units ........................ Weak Positive 40-59 Units ........................ Moderate Positive 60 Units or greater ................ Strong Positive A positive result for cyclic citrullinated peptide (CCP) antibodies in conjunction with consistent clinical features may be suggestive of rheumatoid arthritis (RA). Anti-CCP, IgG/IgA antibodies are present in about 66-74 percent of RA patients and have specificities of 96-99 percent. Detection of IgA antibodies in addition to the usual IgG antibodies enhances the sensitivity due to some RA patients having IgA antibodies to CCP in the absence of IgG. These autoantibodies may be present in the preclinical phase of disease, are associated with future RA development, and may predict radiographic joint destruction. Patients with weak positive results should be monitored and testing repeated. Performed By: [facility] [address] [place] [id number] [employer] Counselor: Thomas Caro MD, PhD CLIA Number: [id number] Reason For Referral Reason Left knee sprain- tr ansforming PT Diagnosis 1 Pain in left knee (M 25.562) Referral Organization [facility] Referring Provider First Name Clara Referring Provider Last Name Donta Referring Provider Speciality Nurse Prac titioner Referred Provider Specialty Physical The rapist General Notes Peggy Cisneros 01/14 01:58:51 PM CDT >order faxed to [facility] Referral Priority Routine Reason Carpal tunnel syndro me, worst in right Diagnosis 1 Bilateral carpal pily monico syndrome (G56.03) Referral Organization [facility] Referring Provider First Name Clara Referring Provider Last Name Donta Referring Provider Speciality Nurse Prac titioner Referred Provider Specialty Hand Surgery General Notes Elvira Terry 0 01/15/2025 12:36:10 PM CDT >Faxed referral to [facility] [phone] Kaitlin 03/25/2025 11:50:35 AM CDT >fax sent to check on status of referral, Kelsey Tucker 03/25/2025 01:51:02 PM CDT >Patient cancelled consultation and has not rescheduled.Blayne Kaitlin 04/05/2025 03:05:33 PM CDT >message sent to pt to call their office and then update our office for when appt is Referral Priority Routine Reason neck pain recent M RI shows bulge at C5-6 and C6-7 Diagnosis 1 Neck pain (M54.2) Referral Organization [facility] Referring Provider First Name Clara Referring Provider Last Name Donta Referring Provider Speciality Nurse Prac twin Referred Provider Christofer Stovall Referred Provider Specialty Pain Medicin e General Notes Peggy Cisneros 05/27 02:10:10 PM CDT >patient will bring images on disc to [facility] Jessica 05/31/2025 03:39:17 PM CDT >Referral faxed to Christofer Stovall [phone] Kaitlin 06/23/2025 11:14:40 AM CDT >consult note in chart. was seen today Referral Priority Routine Referral Appointment Date 06/23/2025 Medications Medication SIG (Take, Route, Frequency, Duration) Notes Start Date End Date Status Maxalt 10 MG Tablet 1 tablet Orally Once a day; Duration: 10 days As needed, may take a second tablet 2 hours after 1st if needed for migraine relief 03/29/2025 Active Xarelto 20 MG Tablet 1 tablet with food Orally daily; Duration: 90 days Active Cyanocobalamin 1000 MCG/ML Solution 1 mL Injection monthly; Duration: 30 days Active Albuterol Sulfate HFA 108 (90 Base) MCG/ACT Aerosol Solution 2 puffs Inhalation every 4 hrs As needed 01/21/2025 Active Ondansetron HCl 4 MG Tablet 1 tablet Orally every 6 hours; Duration: 10 days As needed 09/24/2024 Active Pantoprazole Sodium 40 MG Tablet Delayed Release 1 tablet 1/2 to 1 hour before morning meal Orally Once a day; Duration: 90 days Active rOPINIRole HCl 2 MG Tablet 1 tablet 1 to 3 hours before bedtime Orally Once a day; Duration: 90 days Active Vitamin D 50 MCG (2000 UT) Tablet 1 tablet Orally Once a day Active traZODone HCl 150 MG Tablet 2 Oral every night at bedtime; Duration: 0 05/30/2023 Active OneTouch Ultra Test ; Duration: 0 *Reorder fro m Medispan for eRx and Interaction Alerts* 08/26/2023 Active OneTouch UltraSoft 2 Lancet 30 gauge ; Duration: 0 *Reorder from Medispan for eRx and Interaction Alerts* 08/26/2023 Active Viibryd 40 MG Tablet 1 Oral every day; Duration: 0 days 07/30/2022 Active Metoprolol Succinate ER 25 MG Tablet Extended Release 24 Hour 1 tablet Oral Once a day; Duration: 0 days 07/07/2024 Active Dicyclomine HCl 20 MG Tablet 1 tablet Orally Three times a day; Duration: 30 days As needed increasing dose 04/27/2025 Active Atorvastatin Calcium 10 MG Tablet 1 tablet Orally Once a day; Duration: 90 days Active Prazosin HCl 1 MG Capsule 1 Oral every night at bedtime; Duration: 0 07/07/2024 Active Prazosin HCl 5 MG Capsule 2 Oral every night at bedtime; Duration: 0 07/07/2024 Active Aimovig 70 MG/ML Solution Auto-injector as directed Subcutaneous monthly; Duration: 1 days Active Famotidine 20 MG Tablet 1 tablet Orally twice a day; Duration: 90 days Active diazePAM 10 MG Tablet 1 tablet one hour prior to test Orally daily; Duration: 1 days No driving with medication 05/06/2025 Active Magnesium Oxide 400 MG Tablet 1 tablet with food Orally Once a day; Duration: 90 days Active Biotin Active OnStateTouch Ultra 2 w/Device Kit ; Duration: 0 08/26/2023 Active Pre-Taty Active ProAir RespiClick 108 (90 Base) MCG/ACT Aerosol Powder Breath Activated 2 Inhalation every four hours; Duration: 30 days ,PRN Reason:for SOB 12/06/2023 Active Ozempic (2 MG/DOSE) 8 MG/3ML Solution Pen-injector 2mg Subcutaneous weekly; Duration: 28 days 01/14/2025 Active Luer Lock Safety Syringes 23G X 1 3 ML Miscellaneous use to inject monthly B12; Duration: 90 days Active Spironolactone 50 MG Tablet 1 tablet Orally twice a day; Duration: 30 days Active Immunizations Vaccine Route Administration Date Status Comme nts Pneumococcal polysaccharide PPV23 Unknown 05/19/2016 Administered done in [place] ,sourcename : Historical information -source unspecified Source VFC Code: : Pfizer-Biontech Covid-19 Vaccine 1st dose Unknown 07/14/2021 Administered Lisandra Cunha ,sourcename : Pharmacy Source VFC Code: : Pfizer-Biontech Covid-19 Vaccine 1st dose Unknown 09/21/2021 Administered Lisandra Cunha ,sourcename : Pharmacy Source VFC Code: : Influenza, quadrivalent (IIV4), split virus, 6-35 months dosage IM Intramuscular 08/08/2021 Administered ,sourcename : New immunization record ,immstatus : Complete Source VFC Code: : Influenza, quadrivalent (IIV4), split virus, 6-35 months dosage IM Intramuscular 07/02/2022 Administered ,sourcename : N ew immunization record ,immstatus : Complete Influenza, quadrivalent (IIV4), split virus, 6-35 months dosage IM Intramuscular 07/09/2023 Administered ,sourcename : N ew immunization record ,immstatus : Complete Social History Tobacco Use: Social History Observation Description Date Details (start date - stop date) Never Smoker NA - NA Social History Tobacco Use: Social Info Question Answer Notes Tobacco Control (Standard) Tobacco use: Nonsmoker Additional Details Category Social Info Options Details Drug/Alcohol: Do you drink alcohol? Socia lly Problems Problem Type SNOMED Code ICD Code Onset Dates Problem Status W/U Status Risk Notes Problem Cervicalgia (22831238) Cervicalgia (M54.2) Active confirmed Problem Migraine without aura, not refractory (663339322) Migraine without aura and without status migrainosus, not intractable (G43.009) Active confirmed Problem Premenstrual tension syndrome (73435167) PMDD (premenstrual dysphoric disorder) (F32.81) Active confirmed Problem Hematochezia (328492868) Hematochezia (K92.1) Active confirmed Problem Postprocedural states (623535822) S/P lumbar microdiscectomy (Z98.890) Active confirmed Problem Lumbar discitis (096695255) Lumbar discitis (M46.46) Active confirmed Problem Long-term current use of antibiotic (447820949) Receiving intravenous antibiotic treatment at home (Z79.2) Active confirmed Problem Medically comple x patient (Z78.9) Active confirmed Problem Cyst of uterine adnexa (33710897267849) Adnexal cyst (N94.9) Active confirmed Problem Antiphospholipid syndrome (80593156) Antiphospholipid syndrome (D68.61) 021 Active confirmed Problem Type II diabetes mellitus without complication (736486641) Type 2 diabetes mellitus without complications (E11.9) 021 Active confirmed Problem Obesity (072201623) Obesity, unspecified (E66.9) 022 Active confirmed Problem Hyperlipidemia (21268325) Hyperlipidemia, unspecified (E78.5) Active confirmed Problem Hypomagnesemia (211810645) Hypomagnesemia (E83.42) Active confirmed Problem Anxiety disorder (478872810) Anxiety disorder, unspecified (F41.9) Active confirmed Problem Restless legs syndrome (89133484) Restless legs syndrome (G25.81) Active confirmed Problem Migraine without aura, not refractory (disorder) (185713351) Migraine, unspecified, not intractable, without status migrainosus (G43.909) Active confirmed Problem Sleep apnea (03884403) Sleep apnea, unspecified (G47.30) Active confirmed Problem Carpal tunnel syndrome (02409346) Carpal tunnel syndrome, right upper limb (G56.01) Active confirmed Problem Cataract (720993092) Unspecified cataract (H26.9) Active confirmed Problem Essential hypertension (74992114) Essential (primary) hypertension (I10) Active confirmed Problem Ventricular premature depolarization (964654542) Ventricular premature depolarization (I49.3) Active confirmed Problem Mild intermittent asthma (955646009) Mild intermittent asthma, uncomplicated (J45.20) Active confirmed Problem Pain of right shoulder region (finding) (0884298796) Pain in right shoulder (M25.511) Active confirmed Problem Pain of left knee joint (finding) (969144761783561) Pain in left knee (M25.562) Active confirmed Problem Arthralgia of the ankle and/or foot (230905657) Pain in left ankle and joints of left foot (M25.572) Active confirmed Problem Displacement of lumbar intervertebral disc without myelopathy (97594231) Other intervertebral disc displacement, lumbar region (M51.26) Active confirmed Problem Lumbar radiculopathy (929822718) Radiculopathy, lumbar region (M54.16) Active confirmed Problem Left side sciatica (197964161796375) Sciatica, left side (M54.32) Active confirmed Problem 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) Cyst of kidney, acquired (N28.1) Active confirmed Problem Other noninflammatory disorders of ovary, fallopian tube and broad ligament (N83.8) Active confirmed Problem Retention of urine (471230452) Retention of urine, unspecified (R33.9) Active confirmed Problem Dizziness and giddiness (656453349) Dizziness and giddiness (R42) Active confirmed Problem Reduced mobility (0372657) Other reduced mobility (Z74.09) Active confirmed Problem Cyst of left ovary (85000761269608686) Unspecified ovarian cyst, left side (N83.202) Active confirmed Problem Cardiac arrhythmia (605623216) Cardiac arrhythmia, unspecified (I49.9) Active confirmed Problem Cardiac arrhythmia (286942792) Other specified cardiac arrhythmias (I49.8) Active confirmed Problem Chronic pain (08699352) Other chronic pain (G89.29) Active confirmed Problem Sleep disorder (58097344) Sleep disorder, unspecified (G47.9) Active confirmed Problem Migraine with aura (7400154) Migraine with aura, not intractable, without status migrainosus (G43.109) Active confirmed Problem Refractory migraine without aura (887801536) Migraine without aura, intractable, with status migrainosus (G43.011) Active confirmed Problem Generalized anxiety disorder (04394014) Generalized anxiety disorder (F41.1) Active confirmed Problem Recurrent major depression (27500287) Major depressive disorder, recurrent, unspecified (F33.9) Active confirmed Problem Morbid obesity (disorder) (805522315) Morbid (severe) obesity due to excess calories (E66.01) Active confirmed Problem Vitamin B deficiency (53652077) Deficiency of other specified B group vitamins (E53.8) Active confirmed Problem Hidradenitis suppurativa (05319152) Hidradenitis suppurativa (L73.2) Active confirmed Problem Body mass index 40+ - morbidly obese (525624703) Body mass index (BMI) 50-59.9 , adult (Z68.43) Active confirmed Problem Low back pain (467657507) Low back pain, unspecified (M54.50) Active confirmed Problem Depression (143457660) Depression, unspecified (F32.A) Active confirmed Problem Orthostatic headache (finding)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 a sitting position, transfer, or ambulate 09/24/2024 Compression fracture of T12 vertebra, sequela (ICD-10 - S22.080S) -New T12 fx. She has having significant pain in middle back with severe muscle spasms. She is managing pain with oxycodone, gabapentin, and muscle relaxers. She has a back brace and doing PT through home health -Will continue oxycodone that she was discharged from the hospital. -Will see in 2 weeks via telehealth. 08/27/2024 Herniation of intervertebral disc at L2-L3 level (ICD-10 - M51.26) 08/27/2024 S/P diskectomy (ICD-10 - Z98.890) On 08/20/24, she had L2-L3 [facility]ctomy [facility]. She said she felt good the first few days after surgery. She has been essentially bed bound for 9 months due to pain, but has been up and moving more due to getting ready for [place]. She says over the past 24 hours the pain has significantly worsened. Barely able to get to office today. Not able to sit up during exam. She had follow-up w/ neurosurgeon 3 days ago and they told her the pain in right thigh will take some time to improve. Her surgical glue came off wound and they tried to re-glue it. There was sanguinous fluid that came out of surgical wound today. With fluid, surgical wound not closing due to body habitus, and fluid coming out of wound. Call was placed to neurosurgeon to see if they think she needs new imaging. Have some concerns for a seroma that could be causing pain. Will refill hydrocodone and tizanidine. 05/18/2025 S/P lumbar microdiscectomy (ICD-10 - Z98.890) -Healing well, still having some pain in right anterior thigh. Doing outpatient PT w/Transforming PT. Saw neurosurgery on 02/22/[address] scan showed sclerosis of L2 which is stable and surgical changes. They have discharged her and referred her to to pain management -Expressed doing water therapy when over the winter 04/26/2025 Diarrhea, unspecified (ICD-10 - R19.7) 04/16/2025 Other chronic pain (ICD-10 - G89.29) 04/12/2025 Pain in thumb joint with movement of right hand (ICD-10 - M25.541) 04/02/2025 Acute cystitis without hematuria (ICD-10 - N30.00) 04/01/2025 Urinary tract infection without hematuria, site unspecified (ICD-10 - N39.0) 01/14/2025 Type 2 diabetes mellitus without complications (ICD-10 - E11.9) -Will check A1C today. Last A1C was 5.3 01/14/2025 Hyperlipidemia, unspecified (ICD-10 - E78.5) Lipid panel is great, no changes 01/14/2025 Essential (primary) hypertension (ICD-10 - I10) -BP is controlled, no changes 04/02/2025 Urinary tract infection without hematuria, site unspecified (ICD-10 - N39.0) 05/18/2025 Lumbar discitis (ICD-10 - M46.46) -Last CT showed resolution of infection. No longer on antibiotics and has been discharged from ID 05/18/2025 Medically complex patient (ICD-10 - Z78.9) - Patient at one time weighed over 600lbs. Had bariatric surgery and weight has been between 450-290 over the last 2-3 years. She has mental health issues that may be more than depression and PTSD. Over the past 2 years, she has been bed bound for 6 - 9months with severe back pain on 2 separate occasions. In Aug 2024, she had microdisctectomy, which then resulted in poor closure of wound, diskitis, and the resumption of pain. She was on IV antibitoics, last CT scan showed resolution of infection. She continues to have pain and decreased mobility. Other medical issues have not been evaluated or worked-up due to her ongoing back pain and poor mobility. She has hx of Morbid Obesity, T2DM, ,chronic low back pain, chronic use of pain medication, GERD, HTN, Sleep apnea, BIRCH, renal cysts, PVC, Hx of DVT and long-term anticoagulation, insomnia, Migraine, depression, PTSD, binge-eating, and cataract -She is no longer bed bound, driving again, able to walk around the store, weaned off fentanyl, gabapentin, and muscle relaxer. 08/27/2024 Lumbar radiculopathy (ICD-10 - M54.16) Contined pain and burning into right thigh, that will take time to get better, but will probably always have some pain and weakness 10/15/2024 Lumbar discitis (ICD-10 - M46.46) The patient is currently on Cefepime and daptomycin through a PICC line.- Follow up with the neurosurgeon in three to four weeks with a CT of the lumbar spine without contrast. Weekly CBC, CMP, ESR, and sed rates to be faxed to the infectious disease team. Another CAT scan scheduled in three weeks. 09/24/2024 Muscle spasm of back (ICD-10 - M62.830) -Severe muscle spasms. She said she was discharged home with oxycodone, gabapentin, and 2 different muscle realxers. Discontinue Flexeril and switch to tizanidine, with the last prescribed dose being 4 mg. 10/27/2024 Lumbar discitis (ICD-10 - M46.46) The patient is currently on Cefepime and daptomycin through a PICC line.- Follow up with the neurosurgeon on 11/16/[address] of the lumbar spine without contrast. Weekly CBC, CMP, ESR, and sed rates to be faxed to the infectious disease team. 11/03/2024 Receiving intravenous antibiotic treatment at home (ICD-10 - Z79.2) -She is continuing with IV antibiotics. No fevers . Still getting weekly labs. Have not seen any labs for a few weeks. 04/15/2025 Injury of right thumb, subsequent encounter (ICD-10 - S69.91XD) - Right thumb pain attributed to sprain and underlying arthritis, with bone spur noted on imaging. - Continue conservative management with regular icing and use of pain patches as needed. - Ultrasound order confirmed; patient instructed to call the hospital to schedule the ultrasound 03/30/2025 Episodic migraine (ICD-10 - G43.909) - Maxalt prescribed for abortive therapy; patient had not yet picked it up at the time of visit.- MRI of the head ordered due to ongoing headaches - Patient to schedule MRI at [facility] in [place] [facility]. - Patient to call imaging center to coordinate scheduling and pre-certification. 06/08/2025 PMDD (premenstrual dysphoric disorder) (ICD-10 - F32.81) -Worsening mood symptoms before menses. - Discuss PMDD and medication options with psychiatry and gynecology, including possible use of medications specifically for PMDD. 03/16/2025 Lumbar discitis (ICD-10 - M46.46) -Last CT showed resolution of infection. No longer on antibiotics and has been discharged from ID 11/17/2024 Receiving intravenous antibiotic treatment at home (ICD-10 - Z79.2) -She is continuing with IV antibiotics w/hopes they will be discontinued with next meeting with ID 12/14/2024 Lumbar discitis (ICD-10 - M46.46) -Last CT showed resolution of infection. She remains on Cipro 500mg BID for months, no stop date as of now. Following with ID and doing Telehealth visits. Getting CBC, CMP, and EKG every 2 weeks. 01/21/2025 Neck swelling (ICD-10 - R22.1) 03/10/2025 Dorsalgia, unspecified (ICD-10 - M54.9) 01/21/2025 Pharyngitis, unspecified etiology (ICD-10 - J02.9) Can try OTC sudafed as well, mx for concerns with blood pressure. Fortunately, there is no evidence of a paratracheal or deep pharyngeal abscess. There were some lymph node enlargement/subman dibular gland enlargement probably reactive. Given her feeling of inability to breathe and neck tightness and stridor like sensation, would suggest that the benefit outweighs the risk to give her single dose of fast acting dexamethasone steroid. 12/14/2024 Migraine, unspecified, not intractable, without status migrainosus (ICD-10 - G43.909) -Better with Aimovig, having one for now due to being on menstrual cycle. Could be from cataracts 11/17/2024 Sleep disorder, unspecified (ICD-10 - G47.9) -Will having nursing staff look into [facility] as it looks like prior authorization has approved it. 03/16/2025 Hidradenitis suppurativa (ICD-10 - L73.2) She was last seen on 03/10/25, started on cephalexin. 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 04/15/2025 Iron deficiency (ICD-10 - E61.1) - Fatigue possibly related to iron deficiency; recent iron infusions noted for low ferritin despite normal iron labs. - Iron studies to be repeated at upcoming hematology appointment on April 19, 2025. - Patient to monitor for worsening fatigue, shortness of breath, or other symptoms of anemia and report as needed. 10/27/2024 Receiving intravenous antibiotic treatment at home (ICD-10 - Z79.2) She get Cefepime TID and Daptomycin daily through PICC line. Weekly CBC, CMP, ESR, and sed rates to be faxed to the infectious disease team. Another CAT scan scheduled in three weeks. 09/24/2024 Blood infection (ICD-10 - B99.9) -Don't have her discharge paperwork, not sure what infection she has. She is getting Cefepime TID through her PICC line. Home health comes daily and her and herself do the other doses. She denies any fevers. Has nausea 10/15/2024 Receiving intravenous antibiotic treatment at home (ICD-10 - Z79.2) She get Cefepime TID and Daptomycin daily through PICC line. Weekly CBC, CMP, ESR, and sed rates to be faxed to the infectious disease team. Another CAT scan scheduled in three weeks. 08/27/2024 Dehiscence of operative wound, initial encounter (ICD-10 - T81.31XA) Due to skin folds, body habitus, and being too active, the skin glue is not sticking. Skin was re-glued on Saturday at surgery follow-up. The wound is healing, but there are a few areas that are gaped and today attempted to apply steri strips to pull together, but very unlikely they will will hold. Most likely the wound will now have to heal by secondary intention. There was thin sanguinous fluid that came out of wound at time of visit today and her said it has been having blood discharge. Call placed to neurosurgeon, concerns for a seroma. Will cover with Augmentin for infection. 05/18/2025 Hidradenitis suppurativa (ICD-10 - L73.2) -Site has fully resolved 04/02/2025 Muscle spasm of back (ICD-10 - M62.830) 01/14/2025 S/P lumbar microdiscectomy (ICD-10 - Z98.890) -Healing well, still having some pain in right anterior thigh. Been doing Outpatient PT, Transforming PT. She said she will see neurosurgery on 02/22/[address] scan. 01/14/2025 Medically complex patient (ICD-10 - Z78.9) - Patient at one time weighed over 600lbs. Had bariatric surgery and weight has been between 450-290. She has mental health issues that may be more than depression and PTSD. Over the past 2 years, she has been bed bound for 6 - 9months with severe back pain. In Aug 2024, she had microdisctectomy, which then resulted in poor closure of wound, diskitis, and the resumption of pain. She was on IV antibitoics, last CT scan showed resolution of infection. She continues to have pain and decreased mobility, but getting out of house daily and mobility has greatly improved. Other medical issues have not been evaluated or worked-up due to her ongoing back pain and poor mobility. She has hx of Morbid Obesity, T2DM, ,chronic low back pain, chronic use of pain medication, GERD, HTN, Sleep apnea, BIRCH, renal cysts, PVC, Hx of DVT and long-term anticoagulation, insomnia, Migraine, depression, PTSD, binge-eating, and cataract 05/18/2025 Migraine, unspecified, not intractable, without status migrainosus (ICD-10 - G43.909) - Headaches with features of both migraines and cluster headaches. No acute intracranial findings on prior imaging. Mild mucosal thickening in sinuses noted. Headaches are tracked using a migraine tracker, occur multiple times per day, are sensitive to light and sound, and have quick onset and resolution. Aimovig has not provided significant relief. Order MRI of brain to rule out structural causes. Continue headache tracking. Follow up after imaging. -Potentially correcting vision with cataract surgery may be helpful. 08/27/2024 Morbid (severe) obesity due to excess calories (ICD-10 - E66.01) Patient has lost 22lbs since last weighed in office. Patient is requesting to increase ozempic from 1mg to 2mg. Sent to pharmacy 09/24/2024 Nausea (ICD-10 - R11.0) -She feels nausea, could be from pain medication or anitbiotics. Will refill zofan 10/15/2024 Morbid (severe) obesity due to excess calories (ICD-10 - E66.01) -BMI and weight is a complicating factor with her back and mobility. Over the past 2 years her weight has been coming down with the use of GLP-1s. They are on hold at this time due to her complex medical care 04/15/2025 Restless legs syndrome (ICD-10 - G25.81) -Sx's improved with iron infusion a few months ago 06/08/2025 Adnexal cyst (ICD-10 - N94.9) - Stable left adnexal cyst measuring 4.4 cm, not considered the cause of current symptoms.- Follow-up with gynecology on June 14, 2025.- Repeat pelvic ultrasound recommended in approximately [address] report; gynecology may adjust timing based on evaluation. 03/16/2025 Migraine, unspecified, not intractable, without status migrainosus (ICD-10 - G43.909) - Headaches with features of both migraines and cluster headaches. No acute intracranial findings on prior imaging. Mild mucosal thickening in sinuses noted. Headaches are tracked using a migraine tracker, occur multiple times per day, are sensitive to light and sound, and have quick onset and resolution. Aimovig has not provided significant relief. Order MRI of brain to rule out structural causes. Continue headache tracking. Follow up after imaging. -Potentially correcting vision with cataract surgery may be helpful. 10/27/2024 Morbid (severe) obesity due to excess calories (ICD-10 - E66.01) -BMI and weight is a complicating factor with her back and mobility. Over the past 2 years her weight has been coming down with the use of GLP-1s. They were on hold at this time due to her complex medical care -She is requesting to restart Ozempic. Will start Ozempic 0.25mg weekly for 2 weeks and then she can go up to 0.5mg weekly 12/14/2024 Sleep disorder, unspecified (ICD-10 - G47.9) -Belsomra works well for her, but pain is causing her difficulties sleeping. Recommend she take an oxycodone before bedtime. 10/27/2024 Major depressive disorder, recurrent, unspecified (ICD-10 - F33.9) -She states it is hard to stay positive. She sees psych. Would encourage her to keep up with them and along with therapy that she does every 2 weeks. 12/14/2024 Diverticulitis (ICD-10 - K57.92) -Went to ER a few weeks ago for diverticulitis. She was already on Cipro for diskitis, and added Flagyl to regimen. She feels it has resolved. 03/16/2025 Sleep disorder, unspecified (ICD-10 - G47.9) -Belsomra works well for her, working with psych for depression control and night time eating and sleep 06/08/2025 Bleeding nose (ICD-10 - R04.0) -Lasted 2 hours yesterday. This is the first time this has happened. Advised to to call if recurs. She is on Xarelto 04/15/2025 Migraine, unspecified, not intractable, without status migrainosus (ICD-10 - G43.909) - Headaches and neck pain under evaluation; possible musculoskeletal etiology. - MRI of head and neck pending; pain management to be adjusted based on imaging results. 10/15/2024 Major depressive disorder, recurrent, unspecified (ICD-10 - F33.9) -She states it is hard to stay positive. She sees psych. Would encourage her to keep up with them and possibly get in with counseling due prolonged episodes of being bed bound, PTSD, and prolonged pain. 09/24/2024 Sleeping difficulty (ICD-10 - G47.9) - Belseomra is no longer covered by insurance. She is working with psych to get medication covered 05/18/2025 Sleep disorder, unspecified (ICD-10 - G47.9) -Belsomra works well for her, working with psych for depression control and night time eating and sleep 01/14/2025 Lumbar discitis (ICD-10 - M46.46) -Last CT showed resolution of infection. She was on long-term cipro but has stopped it due to side effects. Following with ID and doing Telehealth visits. Getting CBC, CMP, and EKG every 4 weeks. 01/14/2025 Migraine, unspecified, not intractable, without status migrainosus (ICD-10 - G43.909) -Better with Aimovig, having one for now due to being on menstrual cycle. Could be from cataracts 05/18/2025 Diverticulitis (ICD-10 - K57.92) -Hx of diverticulitis. She has noticed some mild pressure in suprapubic are that will monitored at this time. 10/15/2024 PTSD (post-traumatic stress disorder) (ICD-10 - F43.10) -Hx of PTSD and she states that being in the hospital and medical set backs are triggering her PTSD 06/08/2025 Cervicalgia (ICD-10 - M54.2) -Neck pain with frequent THORNE and facial pain. Will be seeing pain managment soon. 03/16/2025 Diverticulitis (ICD-10 - K57.92) -Hx of diverticulitis. She has noticed some mild pressure in suprapubic are that will monitored at this time. 12/14/2024 Vaginal yeast infection (ICD-10 - B37.31) -With terminal carman antibiotics, she has had recurring yeast infections. She has been on weekly fluconazole 10/27/2024 Hematochezia (ICD-10 - K92.1) -Blood in stool that she was seen in hospital and when she first got home has resolved 12/14/2024 Obesity, unspecified (ICD-10 - E66.9) -Weightloss has been hindered by bouts of terminal carman back pain and being bed bound for months on end and other medical concerns. She is on ozempic. Will keep working with her to watch portions, manage binge eating, facilitating movement, working on her mental health, etc. 03/16/2025 Obesity, unspecified (ICD-10 - E66.9) -Weightloss has been hindered by bouts of half-way back pain and being bed bound for months on end and other medical concerns. She is on ozempic 2mg weekly. Will keep working with her to watch portions, manage binge eating, facilitating movement, working on her mental health, etc. 10/27/2024 Dyskinesia (ICD-10 - G24.9) -She said leg jerking happens sometimes when she is tired. Not sleeping well. She was on Belsomra, but having to go through prior auth to get it. - Possible connection to exhaustion and dehydration.- Address exhaustion and dehydration as management strategies. -If leg jerking persists then gives concerns for nerve or possibly side effect or interaction between medications 10/15/2024 Poor sleep (ICD-10 - Z72.820) -Belsomra had worked well for her, but insurance no longer covers it. Psych has started her on ramelteon, she finds it ineffective. Recommend she get back in touch with psych. 05/18/2025 Obesity, unspecified (ICD-10 - E66.9) -Weightloss has been hindered by bouts of half-way back pain and being bed bound for months on end and other medical concerns. She is on ozempic 2mg weekly. Will keep working with her to watch portions, manage binge eating, facilitating movement, working on her mental health, etc. 01/14/2025 Sleep disorder, unspecified (ICD-10 - G47.9) -Belsomra works well for her. 01/14/2025 Diverticulitis (ICD-10 - K57.92) -Went to ER 6 weeks ago for diverticulitis. No flare of symptoms 05/18/2025 Other chronic pain (ICD-10 - G89.29) -Chronic back pain and sciatica on both sides. This will be a lifelong issue. -She has weaned off Fentanyl, gabapentin, and muscle relaxers -She use medical marijuana as needed. 10/15/2024 Hematochezia (ICD-10 - K92.1) - Blood in stool possibly related to hemorrhoids or a rectal fissure. Keep bowels soft to avoid straining. ID is doing weekly CBCs and will watch for drop in H&H. She is not able to stand or transfer to a commode. She doesn't think that she can transfer to get CT scan of back in a few week, so her seeing GI or getting a colonoscopy will have to wait at this time. . 03/16/2025 Other chronic pain (ICD-10 - G89.29) -Chronic back pain and sciatica on both sides. This will be a lifelong issue. -She has been reliant on Fentanyl and oxycodone, discussed weaning off Fentanyl at next refill 10/27/2024 Migraine without aura and without status migrainosus, not intractable (ICD-10 - G43.009) Having increased THORNE's will see if sleeping better will help with HAs. She uses Maxalt as needed. 12/14/2024 Other chronic pain (ICD-10 - G89.29) -Chronic back pain and sciatica on both sides. This will be a lifelong issue. 12/14/2024 Type 2 diabetes mellitus without complications (ICD-10 - E11.9) -Will check A1C today. Will increase Ozempic to 1mg weekly 03/16/2025 Type 2 diabetes mellitus without complications (ICD-10 - E11.9) -Will check A1C today. Remains on Ozempic 2mg weekly 01/14/2025 Obesity, unspecified (ICD-10 - E66.9) -Weightloss has been hindered by bouts of half-way back pain and being bed bound for months on end and other medical concerns, but she has lost over 100lbs over the past 2 years with Ozempic. Will keep working with her to watch portions, manage binge eating, facilitating movement, working on her mental health, etc. She has lost 3lbs this month 05/18/2025 Type 2 diabetes mellitus without complications (ICD-10 - E11.9) -Will check A1C today. Remains on Ozempic 2mg weekly 01/14/2025 Other chronic pain (ICD-10 - G89.29) -Chronic back pain and sciatica on both sides. This will be a lifelong issue. Discussed her pain meds and weaning of medicaation, but she is still having a lot of pain. Discussed when she is doing better nwith pain will decrease Fentanyl from 25mcg to 12.5mcg 05/18/2025 Cataract of both eyes due to drug (ICD-10 - H26.33) -Had 1 eye done and will have the other one coming up. 03/16/2025 Cataract of both eyes due to drug (ICD-10 - H26.33) -Having cataract surgery in May 2025 12/14/2024 Cataract of both eyes due to drug (ICD-10 - H26.33) -Can't do surgery until she is infection free 12/14/2024 Hirsutism (ICD-10 - L68.0) -Will refill spironolactone 03/16/2025 Hirsutism (ICD-10 - L68.0) -Remains on spironolactone 05/18/2025 Hirsutism (ICD-10 - L68.0) -Remains on spironolactone 01/14/2025 Cataract of both eyes due to drug (ICD-10 - H26.33) -Planning on getting cataract surgey soon. 01/14/2025 Sprain of left knee, unspecified ligament, subsequent encounter (ICD-10 - S83.92XD) - Persistent swelling and pain in the left knee, possibly due to previous knee sprain about year ago. She has been bed bound and having significant back pain at time of knee injury that it was never fully [id number] is in PT for back and some activities they do cause significant pain. -Will have PT work on knee. - Consider MRI if no improvement.- Encourage continued physical therapy and monitor for changes in symptoms. 05/18/2025 Chronic diarrhea (ICD-10 - K52.9) - Chronic diarrhea, possible exocrine pancreatic insufficiency considered.- Recommended ruling out exocrine pancreatic insufficiency as next diagnostic step.- Advised continued dietary modifications including increased fiber, protein, fruits, vegetables, and hydration.- Noted dicyclomine provides minimal relief. 03/16/2025 Candidal intertrigo (ICD-10 - B37.2) Patient experiences recurrent rashes and itching, especially after pool activity and in skin folds, despite showering and using powder. Monitor for recurrence or changes. Continue current skin care regimen and monitor for new or worsening symptoms. 05/18/2025 Candidal intertrigo (ICD-10 - B37.2) Patient experiences recurrent rashes and itching,but it has been good since weather has cooled down. 01/14/2025 Bilateral carpal tunnel syndrome (ICD-10 - G56.03) -Bilateral carpal tunnel, worst on right hand. Will have her see Dr. Church. 01/14/2025 Paronychia of finger of right hand (ICD-10 - L03.011) Right middle fingerf, resolving. No intervention at this time 05/18/2025 Restless legs syndrome (ICD-10 - G25.81) - Restless leg symptoms during the day, seen hematology recently and not iron defcient- Discussed non-pharmacologica l options such as walking, distraction, and compression socks.- Advised avoidance of caffeine, as it may worsen symptoms.- Reviewed pharmacological options including pramipexole, ropinirole, gabapentin, pregabalin, and iron supplementation.-S he is already on ropinirole, but makes her sleepy during the day. - Emphasized importance of anxiety control as part of management. 05/18/2025 Migraine with aura, not intractable, without status migrainosus (ICD-10 - G43.109) Getting MRI of head and MRI of neck on 05/24/25. 09/24/2024 Other This was a Telehealth visit via [employer] that lasted 30 minutes 11/03/2024 Other This was a Telehealth visit that lasted 20 minutes 11/17/2024 Other This is a Telehealth visit that lasted 23 minutes 01/21/2025 Other RECOMMENDATIONS : Increase fluid intake. Get plenty of rest. Treat fever and/or aches and pains with Tylenol and Motrin OTC unless contraindicated. I recommended the patient RTC if not improving or if worsening. Plan Of Treatment Pending Test Test Name Order Date Ultrasound : Localization 04/12/2025 Urine Culture 06/05/2025 Pancreatic Elastase Fecal by Immunoassay -ARUP 04/26/2025 Urinalysis with Microscopic 06/05/2025 Future Test Test Name Order Date Ultrasound : Pelvis 09/06/2025 Next Appt Details Provider Name:Clara del rosario, 08/26/2025 01:45:00 PM, [address], [place], [address], [phone] Provider Name:Clara del rosario, 12/02/2025 02:15:00 PM, [address], [place], [address], [phone] Insurance Providers Payer Name Payer Address Payer Phone Subscriber Number Group Number Insured Name Patient Relationship to Insured Coverage Start Date Coverage End Date BCBSIL [address] [place] [address] [id number] Kim Estevez Self - patient is the insured 2 [employer] [address] [address] [place] [address] [id number] Rodolfo Estevez Spouse - patient is the spouse of the insured 2 Medical (General) History Medical History History ICD Code Antiphospholipid syndrome D68.61 Type 2 diabetes mellitus without complic ations E11.9 Deficiency of other specified B group vi tamins E53.8 Morbid (severe) obesity due to excess ca lories E66.01 Hyperlipidemia, unspecified E78.5 Hypomagnesemia E83.42 Major depressive disorder, recurrent, un specified F33.9 Generalized anxiety disorder F41.1 Restless legs syndrome G25.81 Migraine without aura, intractable, with status migrainosus G43.011 Sleep apnea, unspecified G47.30 Carpal tunnel syndrome, right upper limb G56.01 Essential (primary) hypertension I10 Ventricular premature depolarization I49 .3 Unspecified cataract H26.9 Cardiac arrhythmia, unspecified I49.9 Mild intermittent asthma, uncomplicated J45.20 Gastro-esophageal reflux disease without esophagitis K21.9 Noninfective gastroenteritis and colitis , unspecified K52.9 Nonalcoholic steatohepatitis (BIRCH) K75. 81 Tremor, unspecified R25.1 Hyperglycemia, unspecified R73.9 Elevated C-reactive protein (CRP) R79.82 Obesity, unspecified E66.9 Depression, unspecified F32.A Medically complex patient Z78.9 Hematochezia K92.1 S/P lumbar microdiscectomy Z98.890 Body mass index (BMI) 50-59.9 , adult Z6 8.43 Low back pain, unspecified M54.50 Headache with orthostatic component, not elsewhere classified R51.0 Bradycardia, unspecified R00.1 Other specified cardiac arrhythmias I49. 8 Other chronic pain G89.29 Sleep disorder, unspecified G47.9 Anxiety disorder, unspecified F41.9 Surgical History Surgery Date(Month/Year) cholecystectomy ,notes : 2002 back surgery ,notes : clean up disc rupt ured ([id number]) REMOVAL OF FALLOPIAN TUBE ,notes : left 2001 Sleeve gastrectomy ,notes : w/ skin sari darrell Colonoscopy 11/14/2020 Hernia repair ,notes : hiatal 08/03/2019 Tonsil/adenoidectomy 08/03/2019 cataract surgery 05/12/25
--- OUTSIDE RECORDS SUMMARY | 2025-07-07 12:30 | XMS_ITS | Clinical Summary ---
Author Organization [facility] Address [address], [facility] [address] [place] [address] Phone Care Team Providers Care Rod Placer Name Role Phone Kay Marie MD Primary Care Provider Robson Mcintyre MD Unavailable [phone] Kamar Major MD Unavailable Allergies Active Allergy Reactions Criticality Noted Date Comments Azithromycin Anaphylaxis,Itching High 12/16/2020 Bee Pollen Hives Medium 05/21/2023 Clarithromycin Anaphylaxis,Unknown ,Vomiting High 05/29/2013 Clindamycin Anaphylaxis,Unknown High 08/08/2017 Cyclobenzaprine Unknown 10/01/2024 EYE SWELLING Diazepam Rash,Unknown High 09/06/2009 Gives hyper-anxiety Gives hyper-anxiety Ergocalciferol Hives Medium 05/21/2023 Erythromycin Anaphylaxis,Unknown High 05/29/2013 And related medications And related medications Fish Allergy Unknown 09/11/2024 Levofloxacin Unknown 05/21/2023 Nsaids Unknown Medium 10/02/2019 Other-Environmental Allergen (Not Found In Search) Swelling 03/26/2022 mycins Prednisone Other (see Comments) 03/26/2022 Harm myself or others Propranolol Unknown 08/08/2023 Rofecoxib Hives,Unknown Low 05/18/2013 unknown unknown Sulfa Antibiotics Rash 03/26/2022 Sulfamethoxazole-Trimetho prim Hives Low 05/21/2023 Trimethoprim Hives 05/21/2023 Vancomycin Unknown 05/21/2023 Zolpidem Other (see Comments) High 05/21/2023 Medications traZODone (DESYREL) 100 MG Tablet 03/13/20 22 Active metoprolol Succinate (TOPROL-XL) 25 MG TABLET SR 24 HR 02/10/20 22 Active prazosin (MINIPRESS) 5 MG Capsule 03/13/20 22 Active atorvastatin (LIPITOR) 10 MG Tablet 02/13/20 22 Active Ozempic, 1 MG/DOSE, 4 MG/3ML Solution Pen-injector 08/30/20 22 Active Pregabalin 300 MG Capsule Take 300 mg by mouth. 07/30/20 23 Active omeprazole (PriLOSEC) 40 MG CAPSULE DELAYED RELEASE 09/18/19 24 Active rOPINIRole (REQUIP) 0.5 MG Tablet 09/18/19 24 Active spironolactone (ALDACTONE) 50 MG Tablet 09/18/19 24 Active cyanocobalamin (VITAMIN B-12) 1000 MCG/ML Solution Injection 09/25/19 24 Active famotidine (PEPCID) 20 MG Tablet Oral 11/24/19 23 Active fentaNYL (DURAGESIC) 25 MCG/HR PATCH 72 HR Transdermal 01/14/20 24 Active ondansetron (ZOFRAN-ODT) 4 MG TABLET DISPERSIBLE Take 4 mg by mouth. 01/14/20 24 Active albuterol (ProAir HFA) 108 (90 Base) MCG/ACT Aerosol Solution take 1 Puff by inhalation. 12/20/19 19 Active oxyCODONE, immediate release, (OXY-IR) 15 MG Tablet Take 15 mg by mouth. 09/17/19 25 Active Vilazodone HCl 20 MG Tablet Take 40 mg by mouth. 11/06/19 23 Active Xarelto 20 MG TabletIndications: History of Thromboembolic Disease Take 1 Tablet by mouth daily. Indications: History of Disease involving a Thrombosis or an Embolism 90 Tablet 1 02/25/20 25 Active Active Problems Problem Noted Date Diagnosed Date Iron deficiency anemia 01/22/2025 Essential hypertension 08/08/2023 History of DVT (deep vein thrombosis) 03/26/2022 Encounters Date Type Department Care Team Description 04/20/2025 Results Follow-Up [facility] [address] [address] Kay Castillo, SPINNING LATHE OPERATOR AUTOMATIC, SENIOR ANALYTIC CONSULTANT RETICULOCYTE COUNT (RETIC), COMPLETE BLOOD COUNT (CBC) WITH DIFF, CMP (COMPREHENSIVE METABOLIC PANEL), Additional followed-up results: 4 04/19/2025 10:30 AM CDT Clinical Support [facility] [place] [address] [place] [address] Nurse, Cc [place] Iron deficiency anemia, unspecified iron deficiency anemia type (Primary Dx) 04/19/2025 10:15 AM CDT Office Visit [facility] [place] [address] [place] [address] Kay Castillo, SPINNING LATHE OPERATOR AUTOMATIC, SENIOR ANALYTIC CONSULTANT Iron deficiency anemia, unspecified iron deficiency anemia type (Primary Dx); Low serum vitamin B12 04/19/2025 Travel from Last 3 Months Family History Relation Name Status Comments Father suicide Mother heart and kidne y Social History Tobacco Use Types Packs/Day Years Used Date Smoking Tobacco: Never Smokeless Tobacco: Never Tobacco Cessation:Counseling Given: No PHQ-2 Answer Date Recorded Total Score - Questions 1-9 6 03/10 Comments Unknown Sex and Gender Information Value Date Recorded Sex Assigned at Not on file Legal Sex Female 10:31 PM CDT Gender Identity Not on file Sexual Orientation Not on file Last Filed Vital Signs Vital Sign Reading Time Taken Comments Blood Pressure 114/72 04/19/2025 10:27 AM CDT Pulse 75 04/19/2025 10:27 AM CDT Temperature 36.8 C (98.2 F) 04/19/2025 10:27 AM CDT Respiratory Rate - - Oxygen Saturation 96% 04/19/2025 10:27 AM CDT Inhaled Oxygen Concentration - - Weight 149.2 kg (329 lb) 04/19/2025 10:27 AM CDT Height 182.9 cm (6') 04/19/2025 10:27 AM CDT Body Mass Index 44.62 04/19/2025 10:27 AM CDT Plan of Treatment Upcoming Encounters Date Type Department Care Team (Late st Contact Info) Description 07/19/2025 10:45 AM WAD BLANKING PRESS ADJUSTER Office Visit [facility] [place] [address] [place] [address] Kamar Major MD [address] [place] [address] Health Maintenance Due Date Last Done Comments Mammogram 1980 TdaP Immunization 1980 Hepatitis B Immunization (1 of 3 - 19+ 3-dose series) 1999 Pap Smear 2001 Human Papillomavirus (HPV) Immunization (1 - 3-dose SCDM series) 2007 Cervical Cancer Screening (CCS) 2010 HPV/Cotest 2010 Discussion re Starting/Frequency of Mammograms 2020 Influenza Immunization (#1) 05/10/202506/11, 07/02/2022, 08/08/2021, Additional history exists SARS-COV-2 Immunization ( season) 2025 09/21/2021, 09/09/2021, 08/09/2021, Additional history exists Respiratory Syncytial Virus (RSV) Immunization (Adult) (1 - 1-dose 75+ series) 2055 Pneumococcal Immunization Combined Aged Out 05/19/2016 No longer eligible based on patient's age to complete this topic Hepatitis C Virus (HCV) Screening Completed 08/06/2016 Meningococcal Immunization (ACWY) Aged Out No longer eligible based on patient's age to complete this topic Rotavirus Immunization Aged Out No lo nger eligible based on patient's age to complete this topic Procedures Procedure Name Priority Date/Time Associated Diagnosis Comments IRON W/ IRON BINDING CAPACITY OH Routine 04/19/2025 12:35 PM CDT Iron deficiency anemia, unspecified iron deficiency anemia type Low serum vitamin B12 FERRITIN Routine 04/19/2025 12:35 PM CDT Iron deficiency anemia, unspecified iron deficiency anemia type Low serum vitamin B12 FOLIC ACID (FOLATE) Routine 04/19/2025 1 2:35 PM CDT Iron deficiency anemia, unspecified iron deficiency anemia type Low serum vitamin B12 VITAMIN B12 Routine 04/19/2025 12:35 PM CDT Iron deficiency anemia, unspecified iron deficiency anemia type Low serum vitamin B12 CMP (COMPREHENSIVE METABOLIC PANEL) Routine 04/19/2025 12:35 PM CDT Iron deficiency anemia, unspecified iron deficiency anemia type Low serum vitamin B12 COMPLETE BLOOD COUNT (CBC) WITH DIFF Routine 04/19/2025 12:35 PM CDT Iron deficiency anemia, unspecified iron deficiency anemia type Low serum vitamin B12 RETICULOCYTE COUNT (RETIC) Routine 04/19/2025 12:35 PM CDT Iron deficiency anemia, unspecified iron deficiency anemia type Low serum vitamin B12 from Last 3 Months Results * IRON W/ IRON BINDING CAPACITY OH (04/19/2025 12:35 PM CDT) IRON 103 50 - 212 ug/dL [facility] UIBC 243 155 - 355 ug/dL [facility] TIBC 346 261 - 478 ug/dl [facility] % Saturation 30 20 - 50 % [facility] 04/19/2025 12:3 5 PM CDT [facility] - 04/19/2025 1:20 PM CDT Release to patient->Immediate us Kay Castillo APRN, ALLISON LAB SEND OUTS Final Result [facility] [address] [place] [address], * VITAMIN B12 (04/19/2025 12:35 PM CDT) Vitamin B12 525 180 - 914 pg/mL [facility] Blood 04/19/2025 12:3 5 PM CDT [facility] - 04/20/2025 1:43 PM CDT Release to patient->Immediate us Kay Castillo APRN, SENIOR ANALYTIC CONSULTANT CHEMISTRY ORDERABLES Final Result [facility] [address] [place] [address], [place] [phone] * (ABNORMAL) RETICULOCYTE COUNT (RETIC) (04/19/2025 12:35 PM CDT) Reticulocyte count 2.84(H) 0.50 - 1.70 % [facility] RET-He 35.50 28.20 - 36.60 pg [facility] Comment: RET-He is a direct assessment of incorporation of iron into erythrocyte hemoglobin. It provides an indirect measure of the iron available for new erythropoiesis over past 2-4 days. Blood 04/19/2025 12:3 5 PM CDT Merged With [facility] - 04/19/2025 12:57 PM CDT Release to patient->Immediate us Kay Castillo APRN, SENIOR ANALYTIC CONSULTANT HEMATOLOGY ORDERABLES Final Result [facility] [address] [place] [address], [place] [phone] * FOLIC ACID (FOLATE) (04/19/2025 12:35 PM CDT) Folate 18.49 >=5.90 ng/mL [facility] Blood 04/19/2025 12:3 5 PM CDT Merged With [facility] - 04/20/2025 1:43 PM CDT Release to patient->Immediate us Kay Castillo APRN, SENIOR ANALYTIC CONSULTANT CHEMISTRY ORDERABLES Final Result [facility] [address] [place] [address], [place] [phone] * FERRITIN (04/19/2025 12:35 PM CDT) Ferritin 185 11 - 307 ng/mL [facility] Blood 04/19/2025 12:3 5 PM CDT Narrative [facility] - 04/20/2025 1:43 PM CDT Release to patient->Immediate IS THE PATIENT REQUIRED TO BE FASTING FOR 8 HOURS?->No Kay Castillo APRN, SENIOR ANALYTIC CONSULTANT CHEMISTRY ORDERABLES Final Result [facility] [place] [address], * (ABNORMAL) CMP (COMPREHENSIVE METABOLIC PANEL) (04/19/2025 12:35 PM CDT) Glucose 119(H) 70 - 105 mg/dL [facility] Blood Urea Nitrogen 13 7 - 25 mg/dL [facility] Creatinine 0.5(L) 0.6 - 1.2 mg/dL [facility] Sodium 136 136 - 145 mEq/L [facility] Potassium 4.4 3.5 - 5.1 mEq/L [facility] Chloride 100 98 - 107 mEq/L [facility] Bicarbonate 25 21 - 31 mEq/L [facility] Total Bilirubin 0.6 0.3 - 1.0 mg/dL [facility] Alk. Phosphatase 76 34 - 104 U/L [facility] Aspartate Aminotransferase 14 13 - 39 U/L [facility] Alanine Aminotransferase 12 7 - 52 U/L [facility] Total Protein 7.0 6.4 - 8.9 g/dL [facility] Albumin 4.3 3.5 - 5.7 g/dL [facility] Calcium 9.7 8.6 - 10.3 mg/dL [facility] Anion Gap 15.4(H) 7.0 - 15.0 mEq/L [facility] Globulin 2.7 2.0 - 3.5 g/dL [facility] EGFR 118 >60 ml/min/1. 73m2 [facility] Comment: This eGFR is calculated using 2020 CKD-EPI Creatinine equation without race modifier based on the NKF-ASN task force recommendations Equation: jHFP=825*min(SCr/k,1)a*max(SCr/k,1)-1.200*0.9938Age*1.012 (if female), where SCr is serum creatinine, k is 0.7 for females and 0.9 for males, and a is -0.241 for females and -0.302 for males Blood 04/19/2025 12:3 5 PM CDT Narrative [facility] - 04/19/2025 1:20 PM CDT Release to patient->Immediate IS THE PATIENT REQUIRED TO BE FASTING FOR 8 HOURS?->No us Kay Castillo APRN, SENIOR ANALYTIC CONSULTANT CHEMISTRY ORDERABLES Final Result [facility] [place] [address], * (ABNORMAL) COMPLETE BLOOD COUNT (CBC) WITH DIFF (04/19/2025 12:35 PM CDT) WBC 7.8 4.0 - 10.0 10*3/uL [facility] HGB 14.5 11.2 - 15.7 g/dL [facility] HCT 42.4 34.1 - 44.9 % [facility] PLT 299 163 - 369 10*3/uL [facility] MPV 10.1 9.4 - 12.4 fL [facility] RBC 4.68 3.93 - 5.22 10*6/uL [facility] MCV 91 79 - 95 fL [facility] MCH 31.0 25.6 - 32.2 pg [facility] MCHC 34.2 32.2 - 36.5 g/dL [facility] RDW 13.9 11.6 - 14.4 % [facility] Absolute Neutrophil Count 5,331 cells/uL [facility] Absolute Seg Count 5,331 1,440 - 6,600 cells/uL [facility] Absolute Lymph Count 1,960 760 - 4,000 cells/uL [facility] Absolute Stoddard Count 392 160 - 1,200 cells/uL [facility] Absolute Eos Count 157 0 - 300 cells/uL [facility] Segmented Neutrophils 68(H) 36 - 66 % [facility] Lymphocytes 25 19 - 40 % [facility] Monocytes 5 4 - 12 % [facility] Eosinophils 2 0 - 3 % [facility] WBC Estimate Normal [facility] Platelet Estimate Normal [facility] RBC Morphology Normal [facility] Blood 04/19/2025 12:3 5 PM CDT Narrative [facility] - 04/19/2025 3:14 PM CDT Release to patient->Immediate Kay Castillo APRN, SENIOR ANALYTIC CONSULTANT HEMATOLOGY ORDERABLES Final Result [facility] [place] [address], from Last 3 Months Insurance RUST RUST Care Teams Rod Placer Relationship Specialty Start Date End Date Kay Marie MD [address] [place], [place] [id number] PCP - General Family Medicine 04/03/21 Robson Mcintyre MD [address] [phone] Internal Medicine 04/03/21 Kamar Major MD [address] [address] Consulting Physician Oncology 04/21/24
--- OUTSIDE RECORDS SUMMARY | 2025-07-07 12:30 | XMS_ITS | Clinical Summary ---
Author Organization [facility] Address [address] [place] [address] Phone Care Team Providers Care Tenter Frame Operator Name Role Phone Unavailable Primary Care Provider Unavailabl e Allergies Active Allergy Reactions Criticality Noted Date Comments Clindamycin Anaphylaxis High 08/14/2023 Prednisone Other (See Comments) 08/14/2023 SI, HI Sulfa (Sulfonamide Antibiotics) Hives High 02/2023 Medications plecanatide (Trulance) 3 mg Tablet Take 1 Tablet by mouth 1 time daily as needed for Other (See Comment). Active atorvastatin (LIPITOR) 10 mg tablet Take 10 mg by mouth daily at bedtime. 2 Active baclofen (LIORESAL) 10 mg tablet Take 20 mg by mouth 3 times daily. 3 Active dapagliflozin propanediol (Farxiga) 5 mg Tablet Take 5 mg by mouth daily. 3 Active doxycycline (MONODOX) 100 mg Capsule Take 100 mg by mouth every 12 hours. 3 Active DULoxetine (CYMBALTA) 60 mg Capsule, Delayed Release(E.C.) Take 60 mg by mouth daily. Active metoprolol succinate (TOPROL XL) 50 mg Extended Release 24 hour tablet Take 50 mg by mouth daily. 25 am 50 pm 3 Active omeprazole (PriLOSEC) 40 mg Capsule, Delayed Release(E.C.) Take 40 mg by mouth daily. 3 Active oxyCODONE-aceta minophen (PERCOCET) 10-325 mg Tablet Take 1 Tablet by mouth every 8 hours as needed for Pain. 3 Active pioglitazone (ACTOS) 30 mg tablet Take 30 mg by mouth daily. Active prazosin (MINIPRESS) 5 mg capsule Take 10 mg by mouth daily at bedtime. 2 Active pregabalin (LYRICA) 300 mg Capsule Take 300 mg by mouth every 12 hours. 3 Active rivaroxaban (Xarelto) 20 mg Tablet Take 20 mg by mouth daily with supper. 2 Active rOPINIRole (REQUIP) 0.5 mg tablet Take 0.5 mg by mouth daily at bedtime. 3 Active semaglutide (Ozempic) 2 mg/dose (8 mg/3 mL) Pen Injector Inject 2 mg by subcutaneous injection every 7 days. 3 Active spironolactone (ALDACTONE) 50 mg tablet Take 50 mg by mouth 2 times daily. 3 Active suvorexant (Belsomra) 15 mg tablet Take 1 Tablet by mouth daily at bedtime. 3 Active traZODone (DESYREL) 300 mg tablet Take 300 mg by mouth daily at bedtime. 3 Active vilazodone (VIIBRYD) 20 mg Tablet Take 20 mg by mouth daily. 3 Active Active Problems Problem Noted Date Diagnosed Date Acute appendicitis 08/14/2023 Left buttock abscess 08/14/2023 Essential hypertension 08/08/2023 Mixed hyperlipidemia 12/22/2020 Chronic bilateral low back pain without sciatica 10/20/2019 Anxiety 09/17/2018 Depression 09/17/2018 PCOS (polycystic ovarian syndrome) 09/17/2018 Social History Tobacco Use Types Packs/Day Years Used Date Smoking Tobacco: Never Smokeless Tobacco: Never Alcohol Use Standard Drinks/Week Comments Never 0 (1 standard drink = 0.6 oz pur e alcohol) Feeling Safe Answer Date Recorded Are you in a relationship wi th someone who hurts you emotionally and/or physically? No 08/14/2023 Food Insecurity Answer Date Recorded Social/Environmental Concerns No concerns Transportation Needs Answer Date Record ed Social/Environmental Concerns No concerns Housing Stability Answer Date Recorded Social/Environmental Concerns No concerns Utility Needs Answer Date Recorded Social/Environmental Concerns No concerns Comments No Sex and Gender Information Value Date Recorded Sex Assigned at Not on file Legal Sex Female 10:03 PM CDT Gender Identity Not on file Sexual Orientation Not on file Last Filed Vital Signs Vital Sign Reading Time Taken Comments Blood Pressure 134/72 08/16/2023 10:00 AM LOGGING TRACTOR OPERATOR SWAMP Pulse 56 08/16/2023 10:00 AM LOGGING TRACTOR OPERATOR SWAMP Temperature 36.5 C (97.7 F) 08/16/2023 10:00 AM LOGGING TRACTOR OPERATOR SWAMP Respiratory Rate 18 08/16/2023 10:0 0 AM LOGGING TRACTOR OPERATOR SWAMP Oxygen Saturation 96% 08/16/2023 10: 00 AM LOGGING TRACTOR OPERATOR SWAMP Inhaled Oxygen Concentration - - Weight 180.6 kg (398 lb 1.6 oz) 08/14/2023 7:57 AM LOGGING TRACTOR OPERATOR SWAMP Height 182.9 cm (6') 08/14/2023 1:41 AM LOGGING TRACTOR OPERATOR SWAMP Body Mass Index 53.99 08/14/2023 1:41 AM LOGGING TRACTOR OPERATOR SWAMP Plan of Treatment Health Maintenance Due Date Last Done Comments DTAP/TDAP/TD VACCINES (1 - Tdap) 1999 HEPATITIS B VACCINES (1 of 3 - 19+ 3-dose series) 09/09 HPV/Cotest (21-29) 2001 HPV VACCINES (1 - 3-dose SCDM series) 2007 CERVICAL CANCER SCREENING 2010 HPV/Cotest (30-65) 2010 PAP SMEAR 2010 BREAST CANCER SCREENING 2020 INFLUENZA VACCINE (#1) 2025 09/17/2018 Insurance BCBS BLUE PREFERRED [employer] CHOICE POS II RX PRIME THERAPEUTICS Commercial Advance Directives For more information, please contact: [phone] * Full Code (Latest Code Status on File) Date Activated Date Inactivated Comments 08/14/2023 2:49 AM 08/16/2023 6:35 PM
--- OUTSIDE RECORDS SUMMARY | 2025-07-07 12:30 | XMS_ITS | Patient Health Record ---
Author Organization [facility] Address [address] [address] Care Team Providers Care Model And Mold Maker Plaster Name Role Phone DIANE CARDENAS Primary Care Provider Unavailab LammalikRyanVinay Unavailable [phone] Allergies Allergen (clinical drug ingredient) Drug/Non Drug Allergy documented on EMR Reaction Allergy Type Onset Date Status prednisolone prednisoLONE Unknown Drug Allergy A ctive azithromycin Azithromycin Anaphylaxis Drug Allergy Active clarithromycin Clarithromycin Anaphylaxis Drug Allergy Active erythromycin Erythromycin Anaphylaxis Drug Allergy Active propranolol Propranolol Unknown Drug Allergy Act yamilet Substance with sulfonamide structure and antibacterial mechanism of action (substance) Sulfa Antibiotics Hives Drug Allergy Active Reason For Referral No Information Medications Medication SIG (Take, Route, Frequency, Duration) Notes Start Date End Date Status Omeprazole 40 MG 1 capsule 30 minutes before morning meal Orally Once a day Active Nystatin 959286 UNIT/GM 1 application Ex ternally Twice a day Active Ondansetron 4 MG 1 tablet on the tongue and allow to dissolve Orally every 6 hours As needed Active busPIRone HCl 10 MG 1 tablet Orally Once a day Active Minipress 5 MG take two capsules Or ally Once a day Active Metoprolol Succinate ER 50 MG 1 tablet Orally Once a day Active Ozempic (2 MG/DOSE) 8 MG/3ML 2 mg Subcutaneous once a week Active Farxiga 10 MG 1 tablet Orally Once a day Active Atorvastatin Calcium 10 MG 1 tablet Oral ly Once a day Active Pregabalin 150 MG 1 capsule Orally twi ce a day Active Xarelto 20 MG 1 tablet with food O rally Once a day Active Trulicity 1.5 MG/0.5ML 1.5 mg Subcutaneo us once a week; Duration: 90 07/12/2023 Active Vitamin B12 TR 2000 MCG 1 tablet Orally Once a day Active Spironolactone 50 MG 1 tablet Orally two times daily Active Albuterol Sulfate (2.5 MG/3ML) 0.083% 3 mL as needed Inhalation every 6 hrs Active Trulicity 0.75 MG/0.5ML 0.75 Subcutaneou s once a week; Duration: 30 days 07/12/2023 Active Belsomra 15 MG 1 tablet at bedtime as needed Orally Once a day Active Viibryd 20 MG 1 tablet with food O rally Once a day Active dexAMETHasone 1 MG 1 tablet Orally at 1 1 pm; Duration: 1 days 07/12/2023 Active Belsomra 15 MG 1 tablet at bedtime as needed Orally Once a day Active traZODone HCl 100 MG 1 tablet at bedtime Orally Once a day Active Social History Tobacco Use: Social History Observation Description Date Details (start date - stop date) Never Smoker NA - NA TU Question Answer Notes Are you a smoker never smoker Problems Problem Type SNOMED Code ICD Code Onset Dates Problem Status W/U Status Risk Notes Problem Hyperglycemia due to type 2 diabetes mellitus (806609661336830) Type 2 diabetes mellitus with hyperglycemia (E11.65) Active confirmed Problem Mixed hyperlipidemia (038522099) Mixed hyperlipidemia (E78.2) Active confirmed Problem Polyneuropathy due to type 2 diabetes mellitus (275834659) Type 2 diabetes mellitus with diabetic polyneuropathy (E11.42) Active confirmed Problem Essential hypertension (21765884) Essential (primary) hypertension (I10) Active confirmed Problem Morbid obesity (disorder) (522062493) Morbid (severe) obesity due to excess calories (E66.01) Active confirmed Plan Of Treatment Pending Test Test Name Order Date Hemoglobin A1C 07/12/2023 CMP (Comp Metabolic Panel) 07/12/2023 CBC (H/H, RBC, INDICES, WBC, PLT) 2022 MICROALBUMIN, RANDOM URINE (W/CREATININE ) 07/12/2023 Lipid Panel, Fasting 07/12/2023 Future Test Test Name Order Date ACTH, PLASMA 07/14/2023 CORTISOL LC/MS 07/14/2023 Medical (General) History Medical History History ICD Code DM, Type II Obesity BIRCH (nonalcoholic steatohepatitis) HTN Hyperlipidemia Restless Leg Syndrome Sleeve gastrectomy Surgical History Surgery Date(Month/Year) Salpingectomy (left) 2001 Rupture Disc Cholecystectomy 2003 Colonoscopy 11/14/2020 Hiatal hernia repair 08/03/2019 Sleeve Gastrectomy Tonsils & Adenoids 08/03/2019 Hospitalization History Reason Date(Month/Year) back pain 05/08/2023
--- OUTSIDE RECORDS SUMMARY | 2025-07-07 12:31 | XMS_ITS | Patient Health Record ---
Author Organization [facility] Mobile Address [address] [place] [address] Care Team Providers Care Adhesion Tester Name Role Phone Kay Marie MD Primary Care Provider Unavail able Rony Long Unavailable [phone] Fabiana Kruse Unavailable [phone] Allergies Allergen (clinical drug ingredient) Drug/Non Drug Allergy documented on EMR Reaction Allergy Type Onset Date Status Substance with sulfonamide structure and antibacterial mechanism of action (substance) SULFA (SULFONAMIDE ANTIBIOTICS) (uncoded) Unknown Allergy 11/18/2023 Active alprazolam Xanax Unknown Drug Allergy 11/18/2023 Activ e Reason For Referral No Information Medications Medication SIG (Take, Route, Frequency, Duration) Notes Start Date End Date Status Rizatriptan Benzoate 10 MG Tablet Oral 01/14/2024 Active traZODone HCl 150 MG Tablet 2 tablets at bedtime Oral Once a day; Duration: 30 days 07/07/2025 Active HYDROcodone-Acetamino phen 5-325 MG Tablet Oral 01/14/2024 Active Prazosin HCl 5 MG Capsule 2 capsules at bedtime Oral Once a day; Duration: 30 days 07/07/2025 11/04/2025 Active Naloxone HCl 4 MG/0.1ML Liquid Nasal 01/14/2024 Active Xarelto 20 MG Tablet Oral 01/14/2024 Active Belsomra 20 MG Tablet 1 tablet at bedtime Orally Once a day; Duration: 30 days 07/07/2025 11/04/2025 Active Vitamin D *Pick strength-form from [employer] for eRX* 01/14/2024 Active Metoprolol Succinate ER 25 MG Tablet Extended Release 24 Hour Oral 01/14/2024 Active Metoprolol Succinate ER 50 MG Tablet Extended Release 24 Hour Oral 01/14/2024 Active Miebo 1.338 GM/ML Solution 1 drop into affected eye as needed Ophthalmic Four times a day Active Spironolactone 50 MG Tablet Oral 01/14/2024 Active Pregabalin 150 MG Capsule Oral 01/14/2024 Active Ondansetron 4 MG Tablet Disintegrating Oral 01/14/2024 Active Ozempic (1 MG/DOSE) 4 MG/3ML Solution Pen-injector Subcutaneous *[facility]* 01/14/2024 Active Nystatin 413416 UNIT/GM Powder External 01/14/2024 Active oxyCODONE-Acetaminoph en 5-325 MG Tablet Oral 01/14/2024 Active rOPINIRole HCl 2 MG Tablet Oral 01/14/2024 Active fentaNYL 12 MCG/HR Patch 72 Hour Transdermal; Duration: 30 Days Active Perphenazine 4 mg Tablet Oral 01/14/2024 Active Famotidine 20 MG Tablet Oral 01/14/2024 Active Atorvastatin Calcium 10 MG Tablet Oral 01/14/2024 Active ProAir HFA 108 (90 Base) MCG/ACT Aerosol Solution Inhalation 01/14/2024 Active Prazosin HCl 1 MG Capsule 1 capsule at bedtime Orally Once a day; Duration: 30 days take with prazosin 5mg capsules Not-Taking Qulipta 60 MG Tablet Oral; Duration: 30 Days Active Pregabalin 300 MG Capsule Oral 01/14/2024 Active Prazosin HCl 1 MG Capsule 1 capsule at bedtime Orally Once a day; Duration: 30 days Not-Taking Cyanocobalamin 1000 MCG/ML Solution Injection 01/14/2024 Active FLUoxetine HCl 20 MG Capsule 1 capsule Orally Once a day; Duration: 30 days 07/07/2025 Active Vilazodone HCl 10 MG Tablet 1 tablet with food Oral Once a day; Duration: 7 days dose decrease 07/07/2025 Active Immunizations Vaccine Route Administration Date Status Comme nts Pfizer [employer] Covid-19 Vac cine 2nd dose Unknown 08/09/2021 Administered Pfizer [employer] Covid-19 Vac cine 2nd dose Unknown 09/09/2021 Administered Social History Tobacco Use: Social History Observation [...] Intake: None 11/23/2022,Tobacco Years: Never smoker 11/23/2022 Problems Problem Type SNOMED Code ICD Code Onset Dates Problem Status W/U Status Risk Notes Problem Moderate recurrent major depression (82409537) Major depressive disorder, recurrent, moderate (F33.1) Active confirmed Problem Generalized anxiety disorder (88874598) Generalized anxiety disorder (F41.1) Active confirmed Problem Insomnia (199051685) Other insomnia (G47.09) Active confirmed Problem Binge eating disorder (230615020) Binge eating disorder (F50.81) Active confirmed Problem Chronic posttraumatic stress disorder (674693023) Chronic posttraumatic stress disorder (F43.12) Active confirmed Problem Moderate recurrent major depression (51827068) Moderate recurrent major depression (F33.1) Active confirmed Problem Mild binge-eatin g disorder (F50.810) Active confirmed Vital Signs Heart Rate 82 /min 07/07/2025 Blood pressure diastolic 83 mm Hg 07/07/2025 Height-cm 182.88 cm 07/07/2025 Weight-kg 149.69 kg 07/07/2025 Height 72.00 in 07/07/2025 Blood pressure systolic 125 mm Hg 07/07/2025 Weight 330 lbs 07/07/2025 BMI 44.75 kg/m2 07/07/2025 Encounters Encounter Location Date Provider Diagnosis [facility] [address] [place] [address] 07/24/2024 Fabiana Kruse Moderate recurrent major depression F33.1 ; Generalized anxiety disorder F41.1 and Chronic posttraumatic stress disorder F43.12 [facility] [address] [place] [address] 07/27/2024 Rony Long Generalized anxiety disorder F41.1 ; Major depressive disorder, recurrent, moderate F33.1 ; Chronic posttraumatic stress disorder F43.12 ; Other insomnia G47.09 and Mild binge-eating disorder F50.810 [facility] [address] [place] [address] 08/14/2024 Fabiana Kruse Moderate recurrent major depression F33.1 ; Generalized anxiety disorder F41.1 and Chronic posttraumatic stress disorder F43.12 [facility] [address] [place] [address] 08/25/2024 Fabiana Aixa Moderate recurrent major depression F33.1 ; Generalized anxiety disorder F41.1 and Chronic posttraumatic stress disorder F43.12 [facility] [address] [place] [address] 09/22/2024 Rony Long Generalized anxiety disorder F41.1 ; Major depressive disorder, recurrent, moderate F33.1 ; Chronic posttraumatic stress disorder F43.12 ; Other insomnia G47.09 ; Mild binge-eating disorder F50.810 and Major depressive disorder, recurrent severe without psychotic features 296.33 [facility] [address] [place] [address] 09/30/2024 Fabiana Aixa Moderate recurrent major depression F33.1 ; Generalized anxiety disorder F41.1 and Chronic posttraumatic stress disorder F43.12 [facility] [address] [place] [address] 10/23/2024 Fabiana Aixa Moderate recurrent major depression F33.1 ; Generalized anxiety disorder F41.1 and Chronic posttraumatic stress disorder F43.12 [facility] [address] [place] [address] 10/26/2024 Rony Long Generalized anxiety disorder F41.1 ; Major depressive disorder, recurrent, moderate F33.1 ; Chronic posttraumatic stress disorder F43.12 ; Other insomnia G47.09 and Mild binge-eating disorder F50.810 [facility] [address] [place] [address] 11/02/2024 Fabiana Aixa Moderate recurrent major depression F33.1 ; Generalized anxiety disorder F41.1 and Chronic posttraumatic stress disorder F43.12 [facility] [address] [place] [address] 11/20/2024 Fabiana Aixa Encounter for screen ing for depression Z13.31 ; Moderate recurrent major depression F33.1 ; Generalized anxiety disorder F41.1 and Chronic posttraumatic stress disorder F43.12 [facility], [facility] [address] [place] [address] 12/09/2024 Fabiana Kruse Encounter for screen ing for depression Z13.31 ; Moderate recurrent major depression F33.1 ; Generalized anxiety disorder F41.1 and Chronic posttraumatic stress disorder F43.12 [facility], [address] [facility] [address] [place] [address] 12/25/2024 Fabianavera Kruse Moderate recurrent major depression F33.1 ; Generalized anxiety disorder F41.1 and Chronic posttraumatic stress disorder F43.[address] [facility] [address] [place] [address] 01/07/2025 Fabiana Kruse Encounter for screen ing for depression Z13.31 ; Moderate recurrent major depression F33.1 ; Generalized anxiety disorder F41.1 and Chronic posttraumatic stress disorder F43.[address] [address] 01/11/2025 Rony Long Encounter for screen ing for depression Z13.31 ; Encounter for screening for cardiovascular disorders Z13.6 ; Nicotine use Z72.0 ; Generalized anxiety disorder F41.1 ; Major depressive disorder, recurrent, moderate F33.1 ; Chronic posttraumatic stress disorder F43.12 ; Other insomnia G47.09 and Mild binge-eating disorder F50.[address] [address] 03/04/2025 Fabianavera Kruse Generalized anxiety disorder F41.1 ; Chronic posttraumatic stress disorder F43.12 ; Moderate recurrent major depression F33.1 and Encounter for screening for depression Z13.[address] [address] 03/15/2025 Rony Long Major depressive disorder, recurrent, moderate F33.1 ; Encounter for screening for depression Z13.31 ; Generalized anxiety disorder F41.1 ; Chronic posttraumatic stress disorder F43.12 ; Encounter for screening for cardiovascular disorders Z13.6 ; Nicotine use Z72.0 ; Other insomnia G47.09 and Mild binge-eating disorder F50.[address] [facility] [address] [place] [address] 03/22/2025 Fabianavera Kruse Generalized anxiety disorder F41.1 ; Chronic posttraumatic stress disorder F43.12 and Moderate recurrent major depression F33.1 [facility], [facility] [address] [place] [address] 04/20/2025 Fabiana Aixa Generalized anxiety disorder F41.1 ; Chronic posttraumatic stress disorder F43.12 and Moderate recurrent major depression F33.1 [facility] [address] [place] [address] 04/20/2025 Rony Long Major depressive disorder, recurrent, moderate F33.1 ; Generalized anxiety disorder F41.1 ; Chronic posttraumatic stress disorder F43.12 ; Nicotine use Z72.0 ; Other insomnia G47.09 and Mild binge-eating disorder F50.810 [facility] [address] [place] [address] 05/03/2025 Fabiana Aixa Moderate recurrent major depression F33.1 ; Generalized anxiety disorder F41.1 and Chronic posttraumatic stress disorder F43.12 [facility] [address] [place] [address] 05/17/2025 Fabiana Aixa Moderate recurrent major depression F33.1 ; Generalized anxiety disorder F41.1 and Chronic posttraumatic stress disorder F43.12 [facility], [facility] [address] [place] [address] 05/31/2025 Fabiana Aixa Moderate recurrent major depression F33.1 ; Generalized anxiety disorder F41.1 and Chronic posttraumatic stress disorder F43.12 [facility] [address] [place] [address] 06/07/2025 Rony Long Major depressive disorder, recurrent, moderate F33.1 ; Generalized anxiety disorder F41.1 ; Chronic posttraumatic stress disorder F43.12 ; Nicotine use Z72.0 ; Other insomnia G47.09 and Mild binge-eating disorder F50.810 [facility], [facility] [address] [place] [address] 06/14/2025 Fabiana Aixa Moderate recurrent major depression F33.1 ; Generalized anxiety disorder F41.1 and Chronic posttraumatic stress disorder F43.12 [facility], [facility] [address] [place] [address] 06/28/2025 Fabiana Aixa Major depressive disorder, recurrent, moderate F33.1 ; Generalized anxiety disorder F41.1 and Chronic posttraumatic stress disorder F43.12 [facility], [facility] [address] [place] [address] 07/07/2025 Ronydennis Crowella Major depressive disorder, recurrent, moderate F33.1 ; Generalized anxiety disorder F41.1 ; Chronic posttraumatic stress disorder F43.12 ; Nicotine use Z72.0 ; Other insomnia G47.09 and Mild binge-eating disorder F50.810 [facility], [facility] [address] [place] [address] 09/10/2024 [facility] [address] [place] [address] 09/22/2024 [facility] [address] [place] [address] 11/05/2024 [facility] [address] [place] [address] 07/10/2024 [facility] [address] [place] [address] 07/10/2024 [facility], [facility] [address] [place] [address] 07/13/2024 [facility] [address] [place] [address] 07/13/2024 Rony Long Other insomnia G47.0 9 [facility], [facility] [address] [place] [address] 07/14/2024 Rony Long [facility], [facility] [address] [place] [address] 07/15/2024 [facility], [facility] [address] [place] [address] 07/15/2024 [facility] [address] [place] [address] 07/24/2024 [facility] [address] [place] [address] 07/27/2024 [facility] [address] [place] [address] 07/29/2024 [facility] [address] [place] [address] 08/14/2024 [facility] [address] [place] [address] 09/06/2024 [facility], [facility] [address] [place] [address] 09/07/2024 [facility] [address] [place] [address] 09/12/2024 [facility], [facility] [address] [place] [address] 09/14/2024 Rony Long Other insomnia G47.0 9 [facility], [facility] [address] [place] [address] 09/21/2024 [facility] [address] [place] [address] 10/15/2024 Rony Long Other insomnia G47.0 9 [facility], [facility] [address] [place] [address] 10/22/2024 [facility] [address] [place] [address] 10/22/2024 [facility], [facility] [address] [place] [address] 10/22/2024 [facility] [address] [place] [address] 10/22/2024 [facility] [address] [place] [address] 10/22/2024 [facility], [facility] [address] [place] [address] 10/23/2024 Rony Long Other insomnia G47.0 9 [facility], [facility] [address] [place] [address] 11/02/2024 [facility] [address] [place] [address] 11/02/2024 Rony Saldivaroza [facility], [facility] [address] [place] [address] 11/02/2024 Rony Long [facility], [facility] [address] [place] [address] 11/25/2024 Rony Saldivaroza [facility], [facility] [address] [place] [address] 12/16/2024 Rony Crowella Other insomnia G47.0 [address] [place] [address] [place] [address] 12/23/2024 Rony Long [facility], [facility] [address] [place] [address] 12/23/2024 Rony Crowella [facility], [facility] [address] [place] [address] 02/11/2025 Rony Long [facility], [facility] [address] [place] [address] 02/16/2025 Rony Long [facility], [facility] [address] [place] [address] 03/28/2025 Rony Long Major depressive disorder, recurrent, moderate F33.1 [facility], [place] [address] [place] [address] 04/02/2025 Rony Saldivaroza [facility], [facility] [address] [place] [address] 05/23/2025 Rony Long [facility], [facility] [address] [place] [address] 05/25/2025 Rony Crowella Assessments Encounter Date Diagnosis (ICD Code) Assessment Notes Treatment Notes Treatment Clinical Notes Section Notes 10/15/2024 Other insomnia (ICD-10 - G47.09) 09/30/2024 Generalized anxiety disorder (ICD-10 - F41.1) 10/23/2024 Moderate recurrent major depression (ICD-10 - F33.1) 10/23/2024 Other insomnia (ICD-10 - G47.09) 10/26/2024 Major depressive disorder, recurrent, moderate (ICD-10 - F33.1) 10/26/2024 Generalized anxiety disorder (ICD-10 - F41.1) 11/02/2024 Moderate recurrent major depression (ICD-10 - F33.1) 11/20/2024 Encounter for screening for depression (ICD-10 - Z13.31) 11/20/2024 Moderate recurrent major depression (ICD-10 - F33.1) 12/09/2024 Encounter for screening for depression (ICD-10 - Z13.31) 12/09/2024 Moderate recurrent major depression (ICD-10 - F33.1) 12/16/2024 Other insomnia (ICD-10 - G47.09) 12/25/2024 Moderate recurrent major depression (ICD-10 - F33.1) 01/07/2025 Encounter for screening for depression (ICD-10 - Z13.31) 01/07/2025 Moderate recurrent major depression (ICD-10 - F33.1) 07/13/2024 Other insomnia (ICD-10 - G47.09) 07/24/2024 Moderate recurrent major depression (ICD-10 - F33.1) 07/27/2024 Major depressive disorder, recurrent, moderate (ICD-10 - F33.1) 1. Major Depressive Disorder: - Continue vilazodone 40 mg daily - Continue trazodone 300 mg at bedtime - Start Abilify 2 mg daily in the evening for additional depression and anxiety support Plan: - Monitor patient's response to Abilify 2. Anxiety: - Monitor anxiety levels post-surgery Plan: - Consider adding buspirone if anxiety persists or worsens after surgery 3. Insomnia: - Continue Belsomra as prescribed Follow-up: - Schedule a follow-up appointment in 6 weeks to assess the patient's progress and response to Abilify - Encourage the patient to contact the clinic if any concerns or side effects arise from the new medication or if anxiety worsens before the scheduled follow-up appointment 07/27/2024 Generalized anxiety disorder (ICD-10 - F41.1) 1. Major Depressive Disorder: - Continue vilazodone 40 mg daily - Continue trazodone 300 mg at bedtime - Start Abilify 2 mg daily in the evening for additional depression and anxiety support Plan: - Monitor patient's response to Abilify 2. Anxiety: - Monitor anxiety levels post-surgery Plan: - Consider adding buspirone if anxiety persists or worsens after surgery 3. Insomnia: - Continue Belsomra as prescribed Follow-up: - Schedule a follow-up appointment in 6 weeks to assess the patient's progress and response to Abilify - Encourage the patient to contact the clinic if any concerns or side effects arise from the new medication or if anxiety worsens before the scheduled follow-up appointment 08/14/2024 Moderate recurrent major depression (ICD-10 - F33.1) 08/25/2024 Moderate recurrent major depression (ICD-10 - F33.1) 09/22/2024 Generalized anxiety disorder (ICD-10 - F41.1) 09/30/2024 Moderate recurrent major depression (ICD-10 - F33.1) 01/11/2025 Encounter for screening for depression (ICD-10 - Z13.31) 03/04/2025 Generalized anxiety disorder (ICD-10 - F41.1) 03/15/2025 Major depressive disorder, recurrent, moderate (ICD-10 - F33.1) 03/28/2025 Major depressive disorder, recurrent, moderate (ICD-10 - F33.1) 04/20/2025 Generalized anxiety disorder (ICD-10 - F41.1) 03/22/2025 Generalized anxiety disorder (ICD-10 - F41.1) 04/20/2025 Major depressive disorder, recurrent, moderate (ICD-10 - F33.1) 04/20/2025 Generalized anxiety disorder (ICD-10 - F41.1) 05/03/2025 Generalized anxiety disorder (ICD-10 - F41.1) 05/03/2025 Moderate recurrent major depression (ICD-10 - F33.1) 05/17/2025 Moderate recurrent major depression (ICD-10 - F33.1) 05/31/2025 Moderate recurrent major depression (ICD-10 - F33.1) 06/07/2025 Major depressive disorder, recurrent, moderate (ICD-10 - F33.1) 06/14/2025 Moderate recurrent major depression (ICD-10 - F33.1) 06/28/2025 Major depressive disorder, recurrent, moderate (ICD-10 - F33.1) 07/07/2025 Major depressive disorder, recurrent, moderate (ICD-10 - F33.1) 07/07/2025 Generalized anxiety disorder (ICD-10 - F41.1) 06/28/2025 Generalized anxiety disorder (ICD-10 - F41.1) 06/07/2025 Generalized anxiety disorder (ICD-10 - F41.1) 06/14/2025 Generalized anxiety disorder (ICD-10 - F41.1) 05/31/2025 Generalized anxiety disorder (ICD-10 - F41.1) 05/17/2025 Generalized anxiety disorder (ICD-10 - F41.1) 05/03/2025 Chronic posttraumatic stress disorder (ICD-10 - F43.12) 04/20/2025 Chronic posttraumatic stress disorder (ICD-10 - F43.12) 03/22/2025 Chronic posttraumatic stress disorder (ICD-10 - F43.12) 04/20/2025 Chronic posttraumatic stress disorder (ICD-10 - F43.12) 03/15/2025 Generalized anxiety disorder (ICD-10 - F41.1) 03/04/2025 Chronic posttraumatic stress disorder (ICD-10 - F43.12) 03/15/2025 Encounter for screening for depression (ICD-10 - Z13.31) 01/11/2025 Encounter for screening for cardiovascular disorders (ICD-10 - Z13.6) 09/14/2024 Other insomnia (ICD-10 - G47.09) Electronic Prior Authorization was requested for Belsomra 15 MG Tablet. Provider can order medication once approval received. 09/22/2024 Major depressive disorder, recurrent, moderate (ICD-10 - F33.1) 08/25/2024 Generalized anxiety disorder (ICD-10 - F41.1) 08/14/2024 Generalized anxiety disorder (ICD-10 - F41.1) 07/27/2024 Chronic posttraumatic stress disorder (ICD-10 - F43.12) 1. Major Depressive Disorder: - Continue vilazodone 40 mg daily - Continue trazodone 300 mg at bedtime - Start Abilify 2 mg daily in the evening for additional depression and anxiety support Plan: - Monitor patient's response to Abilify 2. Anxiety: - Monitor anxiety levels post-surgery Plan: - Consider adding buspirone if anxiety persists or worsens after surgery 3. Insomnia: - Continue Belsomra as prescribed Follow-up: - Schedule a follow-up appointment in 6 weeks to assess the patient's progress and response to Abilify - Encourage the patient to contact the clinic if any concerns or side effects arise from the new medication or if anxiety worsens before the scheduled follow-up appointment 07/24/2024 Generalized anxiety disorder (ICD-10 - F41.1) 01/07/2025 Generalized anxiety disorder (ICD-10 - F41.1) 12/25/2024 Generalized anxiety disorder (ICD-10 - F41.1) 12/09/2024 Generalized anxiety disorder (ICD-10 - F41.1) 11/20/2024 Generalized anxiety disorder (ICD-10 - F41.1) 10/26/2024 Chronic posttraumatic stress disorder (ICD-10 - F43.12) 11/02/2024 Generalized anxiety disorder (ICD-10 - F41.1) 09/30/2024 Chronic posttraumatic stress disorder (ICD-10 - F43.12) 10/23/2024 Generalized anxiety disorder (ICD-10 - F41.1) 10/23/2024 Chronic posttraumatic stress disorder (ICD-10 - F43.12) 10/26/2024 Other insomnia (ICD-10 - G47.09) 11/02/2024 Chronic posttraumatic stress disorder (ICD-10 - F43.12) 11/20/2024 Chronic posttraumatic stress disorder (ICD-10 - F43.12) 12/09/2024 Chronic posttraumatic stress disorder (ICD-10 - F43.12) 12/25/2024 Chronic posttraumatic stress disorder (ICD-10 - F43.12) 01/07/2025 Chronic posttraumatic stress disorder (ICD-10 - F43.12) 07/24/2024 Chronic posttraumatic stress disorder (ICD-10 - F43.12) 07/27/2024 Other insomnia (ICD-10 - G47.09) 1. Major Depressive Disorder: - Continue vilazodone 40 mg daily - Continue trazodone 300 mg at bedtime - Start Abilify 2 mg daily in the evening for additional depression and anxiety support Plan: - Monitor patient's response to Abilify 2. Anxiety: - Monitor anxiety levels post-surgery Plan: - Consider adding buspirone if anxiety persists or worsens after surgery 3. Insomnia: - Continue Belsomra as prescribed Follow-up: - Schedule a follow-up appointment in 6 weeks to assess the patient's progress and response to Abilify - Encourage the patient to contact the clinic if any concerns or side effects arise from the new medication or if anxiety worsens before the scheduled follow-up appointment 08/14/2024 Chronic posttraumatic stress disorder (ICD-10 - F43.12) 08/25/2024 Chronic posttraumatic stress disorder (ICD-10 - F43.12) 09/22/2024 Chronic posttraumatic stress disorder (ICD-10 - F43.12) 01/11/2025 Nicotine use (ICD-10 - Z72.0) 03/15/2025 Chronic posttraumatic stress disorder (ICD-10 - F43.12) 03/04/2025 Moderate recurrent major depression (ICD-10 - F33.1) 04/20/2025 Moderate recurrent major depression (ICD-10 - F33.1) 03/22/2025 Moderate recurrent major depression (ICD-10 - F33.1) 04/20/2025 Nicotine use (ICD-10 - Z72.0) 05/17/2025 Chronic posttraumatic stress disorder (ICD-10 - F43.12) 05/31/2025 Chronic posttraumatic stress disorder (ICD-10 - F43.12) 06/14/2025 Chronic posttraumatic stress disorder (ICD-10 - F43.12) 06/07/2025 Chronic posttraumatic stress disorder (ICD-10 - F43.12) cont prazosin 06/28/2025 Chronic posttraumatic stress disorder (ICD-10 - F43.12) 07/07/2025 Chronic posttraumatic stress disorder (ICD-10 - F43.12) cont prazosin 07/07/2025 Nicotine use (ICD-10 - Z72.0) 06/07/2025 Nicotine use (ICD-10 - Z72.0) 03/15/2025 Encounter for screening for cardiovascular disorders (ICD-10 - Z13.6) 04/20/2025 Other insomnia (ICD-10 - G47.09) 03/04/2025 Encounter for screening for depression (ICD-10 - Z13.31) 09/22/2024 Other insomnia (ICD-10 - G47.09) 07/27/2024 Mild binge-eating disorder (ICD-10 - F50.810) 1. Major Depressive Disorder: - Continue vilazodone 40 mg daily - Continue trazodone 300 mg at bedtime - Start Abilify 2 mg daily in the evening for additional depression and anxiety support Plan: - Monitor patient's response to Abilify 2. Anxiety: - Monitor anxiety levels post-surgery Plan: - Consider adding buspirone if anxiety persists or worsens after surgery 3. Insomnia: - Continue Belsomra as prescribed Follow-up: - Schedule a follow-up appointment in 6 weeks to assess the patient's progress and response to Abilify - Encourage the patient to contact the clinic if any concerns or side effects arise from the new medication or if anxiety worsens before the scheduled follow-up appointment 01/11/2025 Generalized anxiety disorder (ICD-10 - F41.1) 10/26/2024 Mild binge-eating disorder (ICD-10 - F50.810) 01/11/2025 Major depressive disorder, recurrent, moderate (ICD-10 - F33.1) 09/22/2024 Mild binge-eating disorder (ICD-10 - F50.810) 03/15/2025 Nicotine use (ICD-10 - Z72.0) 04/20/2025 Mild binge-eating disorder (ICD-10 - F50.810) 06/07/2025 Other insomnia (ICD-10 - G47.09) 07/07/2025 Other insomnia (ICD-10 - G47.09) 07/07/2025 Mild binge-eating disorder (ICD-10 - F50.810) 06/07/2025 Mild binge-eating disorder (ICD-10 - F50.810) 03/15/2025 Other insomnia (ICD-10 - G47.09) 01/11/2025 Chronic posttraumatic stress disorder (ICD-10 - F43.12) 09/22/2024 Major depressive disorder, recurrent severe without psychotic features (ICD9-CM - 296.33) 01/11/2025 Other insomnia (ICD-10 - G47.09) 03/15/2025 Mild binge-eating disorder (ICD-10 - F50.810) 01/11/2025 Mild binge-eating disorder (ICD-10 - F50.810)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 garland, 08/09/2025 10:15:00 AM, [address], [address], [place], [address], Provider Name:Fabiana Jesús Kruse , 08/11/2025 11:00:00 AM, [address], [facility] [address], [place], [address], Provider Name:Fabiana Kruse , 08/30/2025 11:00:00 AM, [address], [address], [place], [address], Insurance Providers Payer Name Payer Address Payer Phone Subscriber Number Group Number Insured Name Patient Relationship to Insured Coverage Start Date Coverage End Date [employer] [employer] Ppo [address] [place] [address] [id number] MARAH ARNOLD Self - patient is the insured [employer] [address] [place] [address] [id number] RONNI ARNOLD Spouse - patient is the spouse of the insured Medical (General) History Medical History History ICD Code Problems: Binge eating disorder Chronic post-traumatic stress disorder Generalized anxiety disorder Grief finding Mild recurrent major depression Nightmares associated with chronic post- traumatic stress disorder Obesity Persistent insomnia Posttraumatic stress disorder Primary insomnia Recurrent major depressive episodes, mod erate , Imported from Highlights: On 04/28/2024, the [...] patient was seen for bacterial cholangitis, cervical high-risk HPV DNA test positive, and discitis of [...] patient was treated for left foot pain. Surgical History Surgery Date(Month/Year) Hernia repair (55776295) Tonsillectomy (232186565) Removal of gallbladder (09244) Gastric bypass for obesity (86510) Fallopian tube excision (986854395) Procedure on back ([id number])
[2025-07-08 07:09] LABS: LH 4.2 mIU/mL (.)
[2025-07-08 11:08] LABS: FSH 2.3 mIU/mL (.)
== END 2025-07-07 10:57 | disposition home or self-care (01) ==
LOC: ANHLAB 10:57
PROVIDERS: PCP Family Medicine; Visit Provider Obstetrics & Gynecology
DX: N95.1 Menopausal and female climacteric states (principal)
CPT/HCPCS: 83001; 83002

== ENCOUNTER 2025-07-29 12:53 | Outpatient (CLI) | payer BC, OTHER, SELFPAY ==
--- OUTSIDE RECORDS SUMMARY | 2025-07-26 05:30 | XMS_ITS ---
Author Organization [facility] As [facility] Address [address] [place] [address] Care Team Providers Care Chick Room Supervisor Name Role Phone Kay Marie MD Primary Care Provider Unavail able Rony Long Unavailable [phone] Allergies Allergen (clinical drug ingredient) Drug/Non Drug Allergy documented on EMR Reaction Allergy Type Onset Date Status Substance with sulfonamide structure and antibacterial mechanism of action (substance) SULFA (SULFONAMIDE ANTIBIOTICS) (uncoded) Unknown Allergy 11/18/2023 Active alprazolam Xanax Unknown Drug Allergy 11/18/2023 Activ e REASON FOR VISIT problem Medications Medication SIG (Take, Route, Frequency, Duration) Notes Start Date End Date Status HYDROcodone-Acetamino phen 5-325 MG Tablet Oral 01/14/2024 Active Vitamin D *Pick strength-form from [facility] for eRX* 01/14/2024 Active Xarelto 20 MG Tablet Oral 01/14/2024 Active Spironolactone 50 MG Tablet Oral 01/14/2024 Active Metoprolol Succinate ER 50 MG Tablet Extended Release 24 Hour Oral 01/14/2024 Active ProAir HFA 108 (90 Base) MCG/ACT Aerosol Solution Inhalation 01/14/2024 Active Pregabalin 300 MG Capsule Oral 01/14/2024 Active Cyanocobalamin 1000 MCG/ML Solution Injection 01/14/2024 Active Rizatriptan Benzoate 10 MG Tablet Oral 01/14/2024 Active Naloxone HCl 4 MG/0.1ML Liquid Nasal 01/14/2024 Active Perphenazine 4 mg Tablet Oral 01/14/2024 Active Atorvastatin Calcium 10 MG Tablet Oral 01/14/2024 Active Famotidine 20 MG Tablet Oral 01/14/2024 Active rOPINIRole HCl 2 MG Tablet Oral 01/14/2024 Active oxyCODONE-Acetaminoph en 5-325 MG Tablet Oral 01/14/2024 Active Miebo 1.338 GM/ML Solution 1 drop into affected eye as needed Ophthalmic Four times a day Active Metoprolol Succinate ER 25 MG Tablet Extended Release 24 Hour Oral 01/14/2024 Active Ozempic (1 MG/DOSE) 4 MG/3ML Solution Pen-injector Subcutaneous *Pick strength-form from [facility] for eRX* 01/14/2024 Active Pregabalin 150 MG Capsule Oral 01/14/2024 Active Trintellix 10 MG Tablet 1 tablet Orally Once a day; Duration: 30 day(s) 07/26/2025 Active Prazosin HCl 5 MG Capsule 2 capsules at bedtime Oral Once a day; Duration: 30 days 07/26/2025 11/23/2025 Active traZODone HCl 150 MG Tablet 2 tablets at bedtime Oral Once a day; Duration: 30 days 07/26/2025 Active Belsomra 20 MG Tablet 1 tablet at bedtime Orally Once a day; Duration: 30 days 07/26/2025 11/23/2025 Active Trintellix 5 MG Tablet 1 tablet Orally Once a day; Duration: 7 days sample given 07/26/2025 Active Qulipta 60 MG Tablet Oral; Duration: 30 Days Active Prazosin HCl 1 MG Capsule 1 capsule at bedtime Orally Once a day; Duration: 30 days take with prazosin 5mg capsules Not-Taking Prazosin HCl 1 MG Capsule 1 capsule at bedtime Orally Once a day; Duration: 30 days Not-Taking fentaNYL 12 MCG/HR Patch 72 Hour Transdermal; Duration: 30 Days Active Nystatin 781014 UNIT/GM Powder External 01/14/2024 Active Ondansetron 4 MG Tablet Disintegrating Oral 01/14/2024 Active Social History Tobacco Use: Social History [...] smoker 11/23/2022 Vital Signs Blood pressure systolic 135 mm Hg 07/26/20 25 Blood pressure diastolic 79 mm Hg 025 Heart Rate 69 /min 07/26/2025 Height 72.00 in 07/26/2025 Weight 330 lbs 07/26/2025 BMI 44.75 kg/m2 07/26/2025 Height-cm 182.88 cm 07/26/2025 Weight-kg 149.69 kg 07/26/2025 Encounters Encounter Location Date Provider Diagnosis [facility] [address] [facility] [address] [facility] [address] [place] [address] 07/26/2025 Rony Long Major depressive disorder, recurrent, moderate F33.1 ; Generalized anxiety disorder F41.1 ; Chronic posttraumatic stress disorder F43.12 ; Nicotine use Z72.0 ; Other insomnia G47.09 and Mild binge-eating disorder F50.810 Assessments Encounter Date Diagnosis (ICD Code) Assessment Notes Treatment Notes Treatment Clinical Notes Section Notes 07/26/2025 Major depressive disorder, recurrent, moderate (ICD-10 - F33.1) 07/26/2025 Generalized anxiety disorder (ICD-10 - F41.1) 07/26/2025 Chronic posttraumatic stress disorder (ICD-10 - F43.12) cont prazosin 07/26/2025 Nicotine use (ICD-10 - Z72.0) 07/26/2025 Other insomnia (ICD-10 - G47.09) 07/26/2025 Mild binge-eating disorder (ICD-10 - F50.810) Plan Of Treatment Medication Medication Name Sig Start Date Stop Date Notes Trintellix 10 MG Tablet 1 tablet Orally Once a day; Duration: 30 day(s) 07/26/2025 Prazosin HCl 5 MG Capsule 2 capsules at bedtime Oral Once a day; Duration: 30 days 07/26/2025 11/23/2025 traZODone HCl 150 MG Tablet 2 tablets at bedtime Oral Once a day; Duration: 30 days 07/26/2025 Belsomra 20 MG Tablet 1 tablet at bedtim e Orally Once a day; Duration: 30 days 07/26/2025 11/23/2025 FLUoxetine HCl 20 MG Capsule 1 capsule Orally Once a day; Duration: 30 days 07/26/2025 Trintellix 5 MG Tablet 1 tablet Orally O nce a day; Duration: 7 days 07/26/2025 sample given Vilazodone HCl 10 MG Tablet 1 tablet with food Oral Once a day; Duration: 7 days 07/26/2025 dose decrease Treatment Notes Assessment Notes Chronic posttraumatic stress disorder co nt prazosin Next Appt Details Follow Up: , Reason: 08/09/25 f/u depression Provider Name:Fabiana Kruse , 08/04/2025 09:00:00 AM, [address], [address], [place], [address], Provider Name:Rony garland, 08/09/2025 10:15:00 AM, [address], [address], [place], [address], Provider Name:Fabiana Kruse , 08/11/2025 11:00:00 AM, [address], [address], [place], [address], Provider Name:Fabiana Kruse , 08/18/2025 10:00:00 AM, [address], [address], [place], [address], Provider Name:Fabiana Kruse , 08/27/2025 11:00:00 AM, [address], [address], [place], [address], Provider Name:Fabiana Kruse , 08/30/2025 11:00:00 AM, [facility], [address], [place], [address], Provider Name:Fabiana Kruse , 09/06/2025 11:00:00 AM, [address], [address], [place], [address], Provider Name:Fabiana Kruse , 09/13/2025 11:00:00 AM, [address], [address], [place], [address], History and Physical Notes * HPI (History of Present Illness) Category Sub-Category Detail Notes Category Not es History of Presenting Problem Depression Onset: years ago. Persistent symptoms., Aggravated by: physical illness Associated Symptoms: sadness, feeling helpless Depression screening done Sleep disturbance persistent sleep dis turbances. Aliyah helps the best of medications she has tried. Mood lability week to week and aisha f before menstrual cycle starts she is irritable, angry, depressed but not suicidal, sleep gets worse, eats more. Returns to baseline when cycle starts. Has been past 5-6 months. Psychotherapy Fabiana PTSD hx PTSD Depression screening PHQ-9 Little inte rest or pleasure in doing things: Nearly every day Feeling down, depressed, or hopeless: Ne lina every day Trouble falling or staying asleep, or sl eeping too much: Nearly every day Feeling tired or having little energy: N early every day Poor appetite or overeating: More than h half-way the days Feeling bad about yourself o r that you are a failure, or have let yourself or your family down: Nearly every day Trouble concentrating on thi ngs, such as reading the newspaper or watching television: Nearly every day Moving or speaking so slowly that other people could have noticed; or the opposite, being so fidgety or restless that you have been moving around a lot more than usual: Nearly every day Thoughts that you would be b idania off or of hurting yourself in some way: Not at all Total Score: 23 Interpretation: Severe Depression Intervention Depression Screening Findings: P ositromeo Follow-Up for Depression: [facility] health care management, Psychiatric follow-up Suicide Risk Assessment Performed: __ da te Depression Screening MARIIA-7 (2018 Edition) Feelin g nervous, anxious, or on edge: Nearly every day Not being able to stop or control worryi ng: Nearly every day Worrying too much about different things : Nearly every day Trouble relaxing: Nearly every day Being so restless that it is hard to sit still: Nearly every day Becoming easily annoyed or irritable: Ne lian every day Feeling afraid as if something awful will ht happen: More than half the days Total MARIIA-7 Score: 20 If you checked any problems, how difficult have they made it for you to do your work, take care of things at home, or get along with other people?: Extremely difficult Interpretation of Total: (15 and over) S michellee Examination Category Sub-Category Detail Notes Category Not es Psychiatry Appearance: well-groomed, well-nourished , ..., obese Attitude: cooperative Psychomotor activity: within normal rang e Attention: good Degree of awareness of surroundings: wit hin normal limits Orientation: awake, alert and mary ented x 3 Affect / mood: appropriate, full ra nge Speech / language: appropriate pitch/mo dulation, clear and coherent, normal rate, volume, and articulation (RVR), proper grammar used Insight: good Judgement: good Thought process: intact Thought content: appropriate Perceptual disorders: no perceptual diso rder noted Suicidal ideation: none Intellectual functioning: no impairment noted Memory status: no impairment noted Delusions: no Hallucinations: no Progress Notes * CLAYTON MARAH JDOB: [birth year] (44 yo F)Acc No.[id number]:07/26/2025 Patient: MARAH WEBB Provider: HAYLEY GAITAN :1980 A ge:44 Y S ex:Female Date:07/26/2025 Address:[address] [place], [place] [id number] Pcp:Kay Marie MD Subjective: * Chief Complaints: * P roblem * HPI: H istory of Presenting Problem: Depression O nset: years ago. Persistent symptoms., A ggravated by: physical illness A ssociated Symptoms: sadness, feeling helpless. Sleep disturbance p ersistent sleep disturbances. Belsomra helps the best of medications she has tried. Mood lability w [place] to week and half before menstrual cycle starts she is irritable, angry, depressed but not suicidal, sleep gets worse, eats more. Returns to baseline when cycle starts. Has been past 5-6 months. PTSD h x PTSD. Psychotherapy D sanjeev. Depression screening done. D epression Screening: MARIIA-7 (2018 Edition) F eeling nervous, anxious, or on edge N early every day N ot being able to stop or control worrying?Nearly every day W orrying too much about different things N early every day T rouble relaxing N early every day B eing so restless that it is hard to sit still N early every day B ecoming easily annoyed or irritable N early every day F eeling afraid as if something awful might happen M ore than half the days T otal MARIIA-7 Score 2 0 I f you checked any problems, how difficult have they made it for you to do your work, take care of things at home, or get along with other people? E xtremely difficult I nterpretation of Total ( 15 and over) Severe D epression screening: PHQ-9 L ittle interest or pleasure in doing things?Nearly every day F eeling down, depressed, or hopeless N early every day T rouble falling or staying asleep, or sleeping too much N early every day F eeling tired or having little energy N early every day P oor appetite or overeating M ore than half the days F eeling bad about yourself or that you are a failure, or have let yourself or your family down N early every day T rouble concentrating on things, such as reading the newspaper or watching television N early every day M oving or speaking so slowly that other people could have noticed; or the opposite, being so fidgety or restless that you have been moving around a lot more than usual N early every day T houghts that you would be better off or of hurting yourself in some way N ot at all T otal Score 2 3 I nterpretation S evere Depression Intervention D epression Screening Findings P [...] left foot pain. Medical History Verified * Social History: T obacco Use: T obacco Control (Standard) T obacco use: N onsmoker M igrated Social History: M igrated Social History: Alcohol Intake: None 11/23/2022,Tobacco Years: Never smoker 11/23/2022. S ocial History Verified. * Medications: T akingPrazosin HCl 5 MG Capsule 2 capsules at bedtime Oral Once a day , stop date 11/04/2025traZODone HCl 150 MG Tablet 2 tablets at bedtime Oral Once a day Miebo 1.338 GM/ML Solution 1 drop into affected eye as needed Ophthalmic Four times a day Metoprolol Succinate ER 25 MG Tablet Extended Release 24 Hour Oral Ozempic (1 MG/DOSE) 4 MG/3ML Solution Pen-injector Subcutaneous , Notes to Pharmacist: *Pick strength-form from [facility] for eRX*Pregabalin 150 MG Capsule Oral rOPINIRole [...] , Notes to Pharmacist: *Pick strength-form from [facility] for eRX*Xarelto 20 MG Tablet Oral Spironolactone 50 MG Tablet Oral Metoprolol Succinate ER 50 MG Tablet Extended Release 24 Hour Oral Nystatin 546886 UNIT/GM Powder External Ondansetron 4 MG Tablet Disintegrating Oral fentaNYL 12 MCG/HR Patch 72 Hour Transdermal Qulipta 60 MG Tablet Oral FLUoxetine HCl 20 MG Capsule 1 capsule Orally Once a day Belsomra 20 MG Tablet 1 TABLET AT BEDTIME ORALLY ONCE A DAY Taking Prazosin HCl 5 MG Capsule 2 capsules at bedtime Oral Once a day , stop date 11/04/2025Taking traZODone HCl 150 MG Tablet 2 tablets at bedtime Oral Once a day Taking Miebo 1.338 GM/ML Solution 1 drop into affected eye as needed Ophthalmic Four times a day Taking Metoprolol Succinate ER 25 MG Tablet Extended Release 24 Hour Oral Taking Ozempic (1 MG/DOSE) 4 MG/3ML Solution Pen-injector Subcutaneous , Notes to Pharmacist: *Pick strength-form from [facility] for eRX*Taking Pregabalin 150 MG Capsule Oral Taking rOPINIRole HCl 2 MG Tablet Oral Taking oxyCODONE-Acetaminophen 5-325 MG Tablet Oral Taking Perphenazine 4 [...] , Notes to Pharmacist: *Pick strength-form from [facility] for eRX*Taking Xarelto 20 MG Tablet Oral Taking Spironolactone 50 MG Tablet Oral Taking Metoprolol Succinate ER 50 MG Tablet Extended Release 24 Hour Oral Taking Nystatin 912055 UNIT/GM Powder External Taking Ondansetron 4 MG Tablet Disintegrating Oral Taking fentaNYL 12 MCG/HR Patch 72 Hour Transdermal Taking Qulipta 60 MG Tablet Oral Taking FLUoxetine HCl 20 MG Capsule 1 capsule Orally Once a day Taking Belsomra 20 MG Tablet 1 TABLET AT BEDTIME ORALLY ONCE A DAY Not-TakingPrazosin HCl 1 MG Capsule 1 capsule at bedtime Orally Once a day take with prazosin 5mg capsulesPrazosin HCl 1 MG Capsule 1 capsule at bedtime Orally Once a day Not-Taking Prazosin HCl 1 MG Capsule 1 capsule at bedtime Orally Once a day take with prazosin 5mg capsulesNot-Taking Prazosin HCl 1 MG Capsule 1 capsule at bedtime Orally Once a day DiscontinuedVilazodone HCl 10 MG Tablet 1 tablet with food Oral Once a day , Notes to Pharmacist: dose decreaseMedication List reviewed and reconciled with the patientDiscontinued Vilazodone HCl 10 MG Tablet 1 tablet with food Oral Once a day , Notes to Pharmacist: dose decreaseMedication List reviewed and reconciled with the patient * Allergies: S ULFA (SULFONAMIDE ANTIBIOTICS): Allergy - Onset Date 11/18/2023Xanax: Allergy - Onset Date 11/18/2023yesAllergies Verified. Objective: * Vitals: B P:135/79mm Hg, HR:69/min, Wt:330lbs, Wt-k.69 kg, Ht: 72.00 in, Ht-cm: 182.88 cm, BMI:44.75Index, Body Surface Area: 2.75. * Examination: P sychiatry: Appearance: w ell-groomed, well-nourished, ..., obese. Affect / mood: a ppropriate, full range. Attention: g ood. Attitude: c ooperative. Suicidal ideation: n one. Memory status: n o impairment noted. Degree of awareness of surroundings: w ithin normal limits.? Delusions: n o. Hallucinations: n o. Insight: g ood. Intellectual functioning: n o impairment noted. Judgement: g ood. Orientation: a wake, alert and oriented x 3. Perceptual disorders: n o perceptual disorder noted. Psychomotor activity: w ithin normal range. Speech / language: a ppropriate pitch/modulation, clear and coherent, normal rate, volume, and articulation (RVR), proper grammar used. Thought content: a ppropriate. Thought process: i ntact. Assessment: * Assessment: 1. M ajor depressive [...] day, 30 days, 30 Tablet, Refills 3. * Procedure Codes: 9 6127 BEHAV ASSMT W/SCORE & DOCD/STAND [id number] TOBACCO NON-USER * Preventive Medicine: Screenings: D epression screening Have you had a recent depression screening? Y es * Follow Up: R raquel: 08/09/25 f/u depression Billing Information: * Visit Code: 34609 OFFICE OUTPATIENT VISIT 25 MINUTES DETAILED HISTORY AND EXAM/MODERATE MEDICAL DECISION MAKING. * Procedure Codes: 82564 BEHAV ASSMT W/SCORE & DOCD/STAND INSTRUMENT. 1036F TOBACCO NON-USER. * Electronic signature of HAYLEY Mon on 07/29/2025 at 10:04 AM [employer] DRILLER Sign off status: Pending * Provider: HAYLEY GAITAN Date: 09/25/2024 Generated for Melissa lopes/Abran/Angelita on: 09/28/2024 10:04 AM [employer]
--- NOTE | ~2025-07-29 | MM_ITS ---
EXAMINATION: MM screening clau BI w mariely HISTORY: Screening TECHNIQUE: Craniocaudal and mediolateral oblique 3-D tomosynthesis images were obtained and synthetic 2-D images were generated. CAD analysis was submitted and interpreted. COMPARISON: Baseline BREAST PARENCHYMAL COMPOSITION: Not Dense: The breasts are almost entirely fatty. FINDINGS: There is no evidence of suspicious mass, calcification, or architectural distortion to suggest malignancy in either breast. IMPRESSION: 1. No mammographic evidence of malignancy. 2. Recommend routine screening mammography in one year. BI-RADS Category 1: Negative Reviewed, dictated and finalized at location B. [facility]
--- OUTSIDE RECORDS SUMMARY | 2025-07-29 15:29 | XMS_ITS | Clinical Summary ---
Author Organization [facility] Address [address], [facility] [address] [place] [address] Phone Care Team Providers Care Master Cook Name Role Phone Kay Marie MD Primary Care Provider Robson Mcintyre MD Unavailable [phone] Kamar Major MD Unavailable Allergies Active Allergy [...] Fish Allergy Unknown 09/11/2024 Levofloxacin Unknown 05/21/2023 Methocarbamol Nausea 09/18/2023 Nsaids Unknown Medium 10/02/2019 Other-Environmental Allergen (Not Found In Search) Swelling 03/26/2022 mycins Prednisone Other (see Comments) 03/26/2022 Harm myself or others Propranolol Unknown 08/08/2023 Rofecoxib Hives,Unknown Low 05/18/2013 unknown unknown Shellfish Allergy Unknown 09/11/2024 Sulfa Antibiotics Rash 03/26/2022 Sulfamethoxazole-Trimetho prim Hives Low 05/21/2023 Topiramate Other (see Comments) 05/29/2023 Trimethoprim Hives 05/21/2023 Vancomycin Unknown 05/21/2023 Zolpidem Other (see Comments) High 05/21/2023 Medications traZODone (DESYREL) 100 MG Tablet 03/13/20 22 Active metoprolol Succinate (TOPROL-XL) 25 MG TABLET SR 24 HR 02/10/20 22 Active prazosin (MINIPRESS) 5 MG Capsule 03/13/20 22 Active atorvastatin (LIPITOR) 10 MG Tablet 02/13/20 22 Active Ozempic, 1 MG/DOSE, 4 MG/3ML Solution Pen-injector 08/30/20 22 Active omeprazole (PriLOSEC) 40 MG CAPSULE DELAYED RELEASE 09/18/19 24 Active rOPINIRole (REQUIP) 0.5 MG Tablet 09/18/19 24 Active spironolactone (ALDACTONE) 50 MG Tablet 09/18/19 24 Active cyanocobalamin (VITAMIN B-12) 1000 MCG/ML Solution Injection 09/25/19 24 Active famotidine (PEPCID) 20 MG Tablet Oral 11/24/19 23 Active ondansetron (ZOFRAN-ODT) 4 MG TABLET DISPERSIBLE Take 4 mg by mouth. 01/14/20 24 Active albuterol (ProAir HFA) 108 (90 Base) MCG/ACT Aerosol Solution take 1 Puff by inhalation. 12/20/19 19 Active Xarelto 20 MG TabletIndications: History of Thromboembolic Disease Take 1 Tablet by mouth daily. Indications: History of Disease involving a Thrombosis or an Embolism 90 Tablet 1 02/25/20 25 Active cholecalciferol (Vitamin D3) 50 mcg Tablet Take 50 mcg by mouth. Active dicyclomine (BENTYL) 20 MG Tablet 06/23/20 25 Active FLUoxetine (PROzac) 20 MG Capsule 20 mg. 07/07/20 25 Active Belsomra 20 MG Tablet Take 20 mg by mouth daily. 12/17/19 25 Active Pregabalin 300 MG Capsule Take 300 mg by mouth. 07/30/20 23 025 Discontin ued(Med List Clean Up) fentaNYL (DURAGESIC) 25 MCG/HR PATCH 72 HR Transdermal 01/14/20 24 025 Discontin ued(Med List Clean Up) oxyCODONE, immediate release, (OXY-IR) 15 MG Tablet Take 15 mg by mouth. 09/17/19 25 025 Discontin ued(Med List Clean Up) Vilazodone HCl 20 MG Tablet Take 40 mg by mouth. 11/06/19 23 025 Discontin ued(Med List Clean Up) Active Problems Problem Noted Date Diagnosed Date Low serum vitamin B12 07/19/2025 Current use of senior living anticoagulation 025 Iron deficiency anemia 01/22/2025 Essential hypertension 08/08/2023 History of DVT (deep vein thrombosis) 03/26/2022 Encounters Date Type Department Care Team Description 07/19/2025 11:00 AM SHREDDER PICKER Clinical Support [facility] [place] [address] [place] [address] [place] [phone] Nurse, [facility] Iron deficiency anemia, unspecified iron deficiency anemia type; Low serum vitamin B12; History of DVT (deep vein thrombosis); Current use of senior living anticoagulation 07/19/2025 10:45 AM SHREDDER PICKER Office Visit [facility] [address] [place] [address] [place] [phone] Kamar Major MD Iron deficiency anemia, unspecified iron deficiency anemia type (Primary Dx); Low serum vitamin B12; History of DVT (deep vein thrombosis); Current use of supervisor intermediates anticoagulation 07/19/2025 Travel from Last 3 Months Family History [...] Sign Reading Time Taken Comments Blood Pressure 120/80 07/19/2025 10:46 AM SHREDDER PICKER Pulse 84 07/19/2025 10:46 AM SHREDDER PICKER Temperature 36.7 C (98 F) 07/19/2025 10:46 AM SHREDDER PICKER Respiratory Rate - - Oxygen Saturation 99% 07/19/2025 10:46 AM SHREDDER PICKER Inhaled Oxygen Concentration - - Weight 152.9 kg (337 lb) 07/19/2025 10:46 AM SHREDDER PICKER Height 182.9 cm (6') 07/19/2025 10:46 AM SHREDDER PICKER Body Mass Index 45.71 07/19/2025 10:46 AM SHREDDER PICKER Plan of Treatment Upcoming Encounters Date Type Department Care Team (Late st Contact Info) Description 10/18/2025 10:00 AM SHREDDER PICKER Office Visit [facility] [address] [place] [address] [place] [address] Kamar Major MD [address] [place] [address] Health Maintenance Due Date Last Done Comments Mammogram 1980 TdaP Immunization 1980 Varicella Immunization (1 of 2 - 13+ 2-dose series) 1993 Hepatitis B Immunization (1 of 3 - [...] Procedure Name Priority Date/Time Associated Diagnosis Comments CBC WITH AUTO DIFF OH Routine 07/19/2025 11:47 AM SHREDDER PICKER CMP (COMPREHENSIVE METABOLIC PANEL) Routine 07/19/2025 11:47 AM SHREDDER PICKER Iron deficiency anemia, unspecified iron deficiency anemia type Low serum vitamin B12 History of DVT (deep vein thrombosis) Current use of supervisor intermediates anticoagulation VITAMIN B12 Routine 07/19/2025 11:47 AM SHREDDER PICKER Iron deficiency anemia, unspecified iron deficiency anemia type Low serum vitamin B12 History of DVT (deep vein thrombosis) Current use of supervisor intermediates anticoagulation FOLIC ACID (FOLATE) Routine 07/19/2025 1 1:47 AM SHREDDER PICKER Iron deficiency anemia, unspecified iron deficiency anemia type Low serum vitamin B12 History of DVT (deep vein thrombosis) Current use of supervisor intermediates anticoagulation FERRITIN Routine 07/19/2025 11:47 AM SHREDDER PICKER Iron deficiency anemia, unspecified iron deficiency anemia type Low serum vitamin B12 History of DVT (deep vein thrombosis) Current use of supervisor intermediates anticoagulation IRON W/ IRON BINDING CAPACITY OH Routine 07/19/2025 11:47 AM SHREDDER PICKER Iron deficiency anemia, unspecified iron deficiency anemia type Low serum vitamin B12 History of DVT (deep vein thrombosis) Current use of supervisor intermediates anticoagulation RETICULOCYTE COUNT (RETIC) Routine 07/19/2025 11:47 AM SHREDDER PICKER Iron deficiency anemia, unspecified iron deficiency anemia type Low serum vitamin B12 History of DVT (deep vein thrombosis) Current use of supervisor intermediates anticoagulation from Last 3 Months Results * IRON W/ IRON BINDING CAPACITY OH (07/19/2025 11:47 AM SHREDDER PICKER) IRON 82 50 - 212 ug/dL [facility] UIBC 295 155 - 355 ug/dL [facility] TIBC 377 261 - 478 ug/dl [facility] % Saturation 22 20 - 50 % [facility] 07/19/2025 11:4 7 AM SHREDDER PICKER Narrative [facility] - 07/20/2025 1:41 PM SHREDDER PICKER Release to patient->Immediate Kamar Major MD LAB SEND OUTS Final Result [facility] [place] [address], * (ABNORMAL) CBC WITH AUTO DIFF OH (07/19/2025 11:47 AM SHREDDER PICKER) WBC 8.1 4.0 - 10.0 10*3/uL [facility] HGB 14.9 11.2 - 15.7 g/dL [facility] HCT 44.5 34.1 - 44.9 % [facility] PLT 345 163 - 369 10*3/uL [facility] MPV 10.3 9.4 - 12.4 fL [facility] RBC 4.71 3.93 - 5.22 10*6/uL [facility] MCV 95 79 - 95 fL [facility] MCH 31.6 25.6 - 32.2 pg [facility] MCHC 33.5 32.2 - 36.5 g/dL [facility] RDW 12.3 11.6 - 14.4 % [facility] Neutrophils % 68.4(H) 36.0 - 66.0 % [facility] Lymphocytes % 21.7 19.0 - 40.0 % [facility] Monocytes % 7.0 4.1 - 12.1 % [facility] Eosinophils % 1.7 0.0 - 3.5 % [facility] Basophils % 0.6 0.0 - 1.0 % [facility] Absolute Neutrophils 5.6 1.4 - 6.6 10*3/uL [facility] Absolute Lymphocytes 1.8 0.8 - 4.0 10*3/uL [facility] Absolute Monocytes 0.6 0.2 - 1.2 10*3/uL [facility] Absolute Eosinophils 0.1 0.0 - 0.4 10*3/uL [facility] Absolute Basophils 0.1 0.0 - 0.1 10*3/uL [facility] 07/19/2025 11:4 7 AM SHREDDER PICKER us Kamar Major MD LAB SEND OUTS Final Result Performing Organization Address City/[facility] Co de Phone Number [facility] [address] [place] [address], * VITAMIN B12 (07/19/2025 11:47 AM SHREDDER PICKER) Vitamin B12 329 180 - 914 pg/mL [facility] Blood 07/19/2025 11:4 7 AM SHREDDER PICKER Narrative [facility] - 07/21/2025 2:21 PM SHREDDER PICKER Release to patient->Immediate us Kamar Major MD CHEMISTRY ORDERABLES Final Resul t Performing Organization Address [facility] de Phone Number [facility] [place] [address], * (ABNORMAL) RETICULOCYTE COUNT (RETIC) (07/19/2025 11:47 AM SHREDDER PICKER) Reticulocyte count 2.99(H) 0.50 - 1.70 % [facility] RET-He 35.30 28.20 - 36.60 pg [facility] Comment: RET-He is a direct assessment of incorporation of iron into erythrocyte hemoglobin. It provides an indirect measure of the iron available for new erythropoiesis over past 2-4 days. Blood 07/19/2025 11:4 7 AM SHREDDER PICKER Narrative [facility] - 07/20/2025 1:22 PM SHREDDER PICKER Release to patient->Immediate us Kamar Major MD HEMATOLOGY ORDERABLES Final Resu lt Performing Organization Address [facility] Co de Phone Number [facility] [place] [address], * FOLIC ACID (FOLATE) (07/19/2025 11:47 AM SHREDDER PICKER) Folate 19.07 >=5.90 ng/mL [facility] Blood 07/19/2025 11:4 7 AM SHREDDER PICKER Narrative [facility] - 07/21/2025 2:21 PM SHREDDER PICKER Release to patient->Immediate us Kamar Major MD CHEMISTRY ORDERABLES Final Resul t Performing Organization Address City/[facility]/ZIP Co de Phone Number [facility] [place] [address], [place] [phone] * FERRITIN (07/19/2025 11:47 AM SHREDDER PICKER) Ferritin 146 11 - 307 ng/mL [facility] Blood 07/19/2025 11:4 7 AM SHREDDER PICKER Narrative [facility] - 07/21/2025 2:21 PM SHREDDER PICKER Release to patient->Immediate us Kamar Major MD CHEMISTRY ORDERABLES Final Resul t Performing Organization Address City/[facility] de Phone Number [facility] [place] [address], [place] [phone] * (ABNORMAL) CMP (COMPREHENSIVE METABOLIC PANEL) (07/19/2025 11:47 AM SHREDDER PICKER) Glucose 113(H) 70 - 105 mg/dL [facility] Blood Urea Nitrogen 15 7 - 25 mg/dL [facility] Creatinine 0.6 0.6 - 1.2 mg/dL [facility] Sodium 135(L) 136 - 145 mEq/L [facility] Potassium 4.5 3.5 - 5.1 mEq/L [facility] Chloride 101 98 - 107 mEq/L [facility] Bicarbonate 25 21 - 31 mEq/L [facility] Total Bilirubin 0.6 0.3 - 1.0 mg/dL [facility] Alk. Phosphatase 62 34 - 104 U/L [facility] Aspartate Aminotransferase 17 13 - 39 U/L [facility] Alanine Aminotransferase 13 7 - 52 U/L [facility] Total Protein 7.4 6.4 - 8.9 g/dL [facility] Albumin 4.2 3.5 - 5.7 g/dL [facility] Calcium 9.6 8.6 - 10.3 mg/dL [facility] Anion Gap 13.5 7.0 - 15.0 mEq/L [facility] Globulin 3.2 2.0 - 3.5 g/dL [facility] EGFR 113 >60 ml/min/1. 73m2 [facility] Comment: This eGFR is calculated using 2020 CKD-EPI Creatinine equation without race modifier based on the NKF-ASN task force recommendations Equation: pGZD=513*min(SCr/k,1)a*max(SCr/k,1)-1.200*0.9938Age*1.012 (if female), where SCr is serum creatinine, k is 0.7 for females and 0.9 for males, and a is -0.241 for females and -0.302 for males Blood 07/19/2025 11:4 7 AM SHREDDER PICKER Narrative [facility] - 07/20/2025 1:41 PM SHREDDER PICKER Release to patient->Immediate IS THE PATIENT REQUIRED TO BE FASTING FOR 8 HOURS?->No us Kamar Major MD CHEMISTRY ORDERABLES Final Resul t [facility] [place] [address], from Last 3 Months Insurance [facility] Care Teams Master Cook Relationship Specialty Start Date End Date Kay Marie MD [address] [place] [phone] PCP - General Family Medicine 04/03/21 Robson Mcintyre MD [address] [address] Internal Medicine 04/03/21 Kamar Major MD [address] [place] [address] [place] [address] [address] Consulting Physician Oncology 04/21/24
--- OUTSIDE RECORDS SUMMARY | 2025-07-29 15:29 | XMS_ITS | Patient Health Record ---
Author Organization [facility] Address [address] [address] Care Team Providers Care Marine Engine Machinist Name Role Phone DIANE CARDENAS Primary Care Provider Unavailab LammalikRyanVinay Unavailable [phone] Allergies Allergen (clinical drug ingredient) Drug/Non Drug [...] meal Orally Once a day Active Nystatin 488074 UNIT/GM 1 application Ex ternally Twice a [...] Hyperglycemia due to type 2 diabetes mellitus (442475225358413) Type 2 diabetes mellitus with hyperglycemia (E11.65) Active confirmed Problem Mixed hyperlipidemia (301885836) Mixed hyperlipidemia (E78.2) Active confirmed Problem Polyneuropathy due to type 2 diabetes mellitus (676710941) Type 2 diabetes mellitus with diabetic polyneuropathy (E11.42) Active confirmed Problem Essential hypertension (85257229) Essential (primary) hypertension (I10) Active confirmed Problem Morbid obesity (disorder) (935169399) Morbid (severe) obesity due to excess calories [...]
--- OUTSIDE RECORDS SUMMARY | 2025-07-29 15:29 | XMS_ITS | Patient Health Record ---
Author Organization [facility] dicine Address [address] [place] [address] Care Team Providers Care Coating Line Worker Name Role Phone Donta Clara Primary Care Provider [phone] Dr. Kay Marie Unavailable [phone] Pepito Leung Unavailable [phone] Kay Padilla Unavailable [phone] Dr. Ranjan Patterson Unavailable [phone] Migration, Provider Unavailable Unavailable Dr. Faby Tiwari Unavailable [phone] Allergies Allergen (clinical drug ingredient) Drug/Non [...] Interpretation: Performing Lab: Notes/Report: Test Performed by: [place] [id number] Senior Administrative Services Officer: Derick Santana DO Hemoglobin A1c 5.3 <=6.4 % Hemoglobin A1C < 5.7% = Normal 5.7-6.4% = Increased risk for future diabetes >=6.5% = Diabetes eAvg Glucose 105 <=117 mg/dL eAG Reference Range <117 mg/dL = Normal 117-137 mg/dL = Increased Risk For Future Diabetes >137 mg/dL = Diabetes Vitamin D 25 Hydroxy Reviewed date:12/15/2024 01:36:54 PM Interpretation: Performing Lab: Notes/Report: Test Performed by: [place] [id number] Senior Administrative Services Officer: Derick Santana DO Vitamin D 25 OH 79 30-100 ng/mL Vitamin D25 Interpretation: Deficient: <= 20 ng/mL Insufficient: 21-29 ng/mL Sufficient: 30-100 ng/mL Upper Safety Limit: >100 ng/mL CBC w Auto Diff Reviewed date:12/15/2024 01:36:54 PM Interpretation: Performing Lab: Notes/Report: Test Performed by: [address] [id number] Senior Administrative Services Officer: Derick Santana DO WBC 7.7 4.0-11.7 K/mcL RBC 4.74 3.80-5.41 x10*6/mcL Hgb 13.6 11.3-15.2 g/dL Hct 40.1 33.2-45.3 % MCV 84.7 79.5-98.1 fL MCH 28.7 27.0-34.2 pg MCHC 33.9 31.8-35.3 g/dL RDW 14.1 12.0-16.4 % Platelets 357 149-393 K/mcL MPV 9.0 7.0-11.0 fL Neutro Auto 71.9 45.3-79.0 % Lymph Auto 18.7 11.8-45.9 % Gregory Auto 6.9 4.4-12.0 % Eosinophil Auto 1.7 0.0-6.3 % Basophil Auto 0.8 0.2-1.6 % Neutro Absolute 5.5 2.4-8.4 x10*3/mcL Lymph Absolute 1.4 0.8-3.7 x10*3/mcL Gregory Absolute 0.5 0.3-1.1 x10*3/mcL Eos Absolute 0.1 0.0-0.5 x10*3/mcL Baso Absolute 0.1 0.0-0.1 x10*3/mcL Comprehensive Metabolic Pane l Reviewed date:12/15/2024 01:36:54 PM Interpretation: Performing Lab: Notes/Report: Test Performed by: [place] [address] Senior Administrative Services Officer: Derick Santana DO Glucose Lvl 117 74-109 [...] Interpretation: Performing Lab: Notes/Report: Test Performed by: [place] [id number] Senior Administrative Services Officer: Derick Santana DO Cholesterol Total 142 <=199 [...] Interpretation: Performing Lab: Notes/Report: Test Performed by: [address] [address] Senior Administrative Services Officer: Derick Santana DO Magnesium Lvl 1.7 1.6-2.4 mg/dL Vitamin B12 Reviewed date:12/15/2024 01:36:54 PM Interpretation: Performing Lab: Notes/Report: Test Performed by: [address] [address] Senior Administrative Services Officer: Derick Santana DO Vitamin B12 Lvl 451 180-914 pg/mL Vitamin B12 Interpretation: Normal Range: 180-914 pg/mL Indeterminate: 140-180 pg/mL Deficient: <140 pg/mL Free T4 And TSH Reviewed date:12/15/2024 01:36:54 PM Interpretation: Performing Lab: Notes/Report: Test Performed by: [place] [id number] Senior Administrative Services Officer: Derick Santana DO T4 Free 1.00 0.60-1.70 ng/dL TSH 1.57 0.45-5.33 mcIU/mL CBC With Differential/Platel et Reviewed date:01/21/2025 11:43:26 AM Interpretation: Performing Lab: Notes/Report: Basic Metabolic Panel (8) Reviewed date:01/21/2025 11:39:53 AM Interpretation: Performing Lab: Notes/Report: CT Scan : Soft Tissue Neck W Contrast 22779 Reviewed date:01/21/2025 11:27:13 AM Interpretation: Performing Lab: Notes/Report: X ray : Foot, left Reviewed date:03/03/2025 04:00:58 PM Interpretation: Performing Lab: Notes/Report: MRI : Brain with and without contrast Reviewed date:05/25/2025 09:01:24 AM Interpretation: Performing Lab: Notes/Report: Urinalysis Reviewed date:03/31/2025 07:24:59 PM Interpretation: Performing Lab: Notes/Report: Urine-Color pale yello Appearance cloudy Specific Union 1.000 pH 6.5 Glucose neg Urine Protein trace Occult Blood neg Bilirubin neg Urobilinogen,Semi-Qn .2 Nitrite, Urine neg Ketones trace Leucocyte Esterase large Urine Culture Reviewed date:04/01/2025 03:10:04 PM Interpretation: Performing Lab: Notes/Report: Test Performed by: [address] [address] Senior Administrative Services Officer: DO Joyce Blandon Urine See Below Final [...] Susceptible Tetracycline >8 Resistant Vancomycin 1 Susceptible MRI : Cervical without Contr ast Reviewed date:05/25/2025 09:02:02 AM Interpretation: Performing Lab: Notes/Report: X ray : Thumb Reviewed date:04/13/2025 02:22:31 PM Interpretation: Performing Lab: Notes/Report: Cyclic Citrullinated Peptide Ab, IgG IgA-ARUP Reviewed date:04/20/2025 04:06:00 PM Interpretation: Performing Lab: Notes/Report: Test Performed by: [place] [address] Senior Administrative Services Officer: Derick Santana DO Cyclic Citrullinated Peptide (CCP) [...] be monitored and testing repeated. Performed By: [facility] [address] [place] [id number] Tile Presser: Thomas Caro MD, PhD [place] Number: [id number] Rheumatoid Factor Reviewed date:04/18/2025 06:31:59 PM Interpretation: Performing Lab: Notes/Report: Test Performed by: Judy Springer [address] [address] Senior Administrative Services Officer: Derick Santana DO Rheumatoid Factor <10.0 0.0-13.9 IntlUnit/mL MRI : Knee, left Reviewed date:01/19/2025 03:12:25 PM Interpretation: Performing Lab: Notes/Report: CT ABD+PEL WO CON Reviewed date:06/07/2025 02:49:18 PM Interpretation: Performing Lab: Notes/Report: [address] [place] [address] CT abdomen and pelvis without IV contrast [...] By: Herb Strickland MD, 06/05/2025 11:29 AM Reason For Referral Reason Left knee sprain- tr ansforming PT Diagnosis 1 Pain in left knee (M 25.562) Referral Organization [facility] Referring Provider First Name Clara Referring Provider Last Name Donta Referring Provider Speciality Nurse Prac titioner Referred Provider Specialty Physical The rapist General Notes Peggy Cisneros 01/14 01:58:51 PM CDT >order faxed to [facility] Referral Priority Routine Reason Carpal tunnel syndro me, worst in right Diagnosis 1 Bilateral carpal pily monico syndrome (G56.03) Referral Organization [facility] Referring Provider First Name Clara Referring Provider Last Name Donta Referring Provider Speciality Nurse Prac titioner Referred Provider Specialty Hand Surgery General Notes Harrison Elvira 0 01/15/2025 12:36:10 PM CDT >Faxed referral to [facility] [phone] Kaitlin 03/25/2025 11:50:35 AM CDT >fax sent [...] Diagnosis 1 Neck pain (M54.2) Referral Organization [facility] Referring Provider First Name Clara Referring Provider Last Name Donta Referring Provider Speciality Nurse Prac twin Referred Provider Christofer Stovall Referred Provider Specialty Pain Medicin e General Notes Peggy Cisneros 05/27 02:10:10 PM CDT >patient will bring images on disc to apptHarrison Jessica 05/31/2025 03:39:17 PM CDT >Referral faxed to Christofer Stovall [phone] Kaitlin 06/23/2025 11:14:40 AM CDT >consult note in chart. was seen today Referral Priority Routine Referral Appointment Date 06/23/2025 Medications Medication SIG (Take, Route, Frequency, Duration) Notes Start Date End Date Status ProAir RespiClick 108 (90 Base) MCG/ACT Aerosol Powder Breath Activated 2 Inhalation every four hours; Duration: 30 days ,PRN Reason:for SOB 12/06/2023 Active Biotin Active diazePAM 10 MG Tablet 1 tablet one hour prior to test Orally daily; Duration: 1 days No driving with medication 05/06/2025 Active Magnesium Oxide 400 MG Tablet 1 tablet with food Orally Once a day; Duration: 90 days Active Vitamin D 50 MCG (1999 UT) Tablet 1 tablet Orally Once a day Active Atorvastatin Calcium 10 MG Tablet 1 tablet Orally Once a day; Duration: 90 days Active Pre- Active Famotidine 20 MG Tablet 1 tablet Orally twice a day; Duration: 90 days Active Maxalt 10 MG Tablet 1 tablet Orally Once a day; Duration: 10 days As needed, may take a second tablet 2 hours after 1st if needed for migraine relief 03/29/2025 Active Xarelto 20 MG Tablet 1 tablet with food Orally daily; Duration: 90 days Active Dicyclomine HCl 20 MG Tablet 1 tablet Orally Three times a day; Duration: 30 days As needed increasing dose 04/27/2025 Active Ondansetron HCl 4 MG Tablet 1 tablet Orally every 6 hours; Duration: 10 days As needed 09/24/2024 Active Cyanocobalamin 1000 MCG/ML Solution 1 mL Injection monthly; Duration: 30 days Active Albuterol Sulfate HFA 108 (90 Base) MCG/ACT Aerosol Solution 2 puffs Inhalation every 4 hrs As needed 01/21/2025 Active rOPINIRole HCl 2 MG Tablet 1 tablet 1 to 3 hours before bedtime Orally Once a day; Duration: 90 days Active Pantoprazole Sodium 40 MG Tablet Delayed Release 1 tablet 1/2 to 1 hour before morning meal Orally Once a day; Duration: 90 days Active Everbridge Ultra 2 w/Device Kit ; Duration: 0 08/26/2023 Active Metoprolol Succinate ER 25 MG Tablet Extended Release 24 Hour 1 tablet Oral Once a day; Duration: 0 days 07/07/2024 Active Ozempic (2 MG/DOSE) 8 MG/3ML Solution Pen-injector 2mg Subcutaneous weekly; Duration: 28 days 01/14/2025 Active Luer Lock Safety Syringes 23G X 1 3 ML Miscellaneous use to inject monthly B12; Duration: 90 days Active Everbridge Ultra Test ; Duration: 0 *Reorder fro [facility] for eRx and Interaction Alerts* 08/26/2023 Active traZODone HCl 150 MG Tablet 2 Oral every night at bedtime; Duration: 0 05/30/2023 Active Prazosin HCl 5 MG Capsule 2 Oral every night at bedtime; Duration: 0 07/07/2024 Active Prazosin HCl 1 MG Capsule 1 Oral every night at bedtime; Duration: 0 07/07/2024 Active Spironolactone 50 MG Tablet 1 tablet Orally twice a day; Duration: 90 days Active Everbridge UltraSoft 2 Lancet 30 gauge ; Duration: 0 *Reorder from [facility] for eRx and Interaction Alerts* 08/26/2023 Active Qulipta 60 MG Tablet 1 tablet Orally Once a day 07/29/2025 Active Trintellix 10 MG Tablet Oral; Duration: 30 Days Active Immunizations Vaccine Route Administration Date Status Comme nts Influenza, quadrivalent (IIV4), split virus, 6-35 months [...] N ew immunization record ,immstatus : Complete [employer] Covid-19 Vaccine 1st dose Unknown 07/14/2021 Administered [facility] ,sourcename : Pharmacy Source VFC Code: : [employer] Covid-19 Vaccine 1st dose Unknown 09/21/2021 Administered [facility] ,sourcename : Pharmacy Source VFC Code: : Pneumococcal polysaccharide PPV23 Unknown 05/19/2016 Administered done in [place] ,sourcename : Historical information -source unspecified Source VFC Code: : Social History Tobacco Use: Social History Observation [...] Problem Status W/U Status Risk Notes Problem Antiphospholipid syndrome (23937312) Antiphospholipid syndrome (D68.61) Active confirmed Problem Type II diabetes mellitus without complication (015566267) Type 2 diabetes mellitus without complications (E11.9) Active confirmed Problem Vitamin B deficiency (70509069) Deficiency of other specified B group vitamins (E53.8) 023 Active confirmed Problem Morbid obesity (disorder) (614915828) Morbid (severe) obesity due to excess calories (E66.01) Active confirmed Problem Obesity (378168856) Obesity, unspecified (E66.9) Active confirmed Problem Hyperlipidemia (64535396) Hyperlipidemia, unspecified (E78.5) Active confirmed Problem Hypomagnesemia (488163658) Hypomagnesemia (E83.42) Active confirmed Problem Recurrent major depression (21809261) Major depressive disorder, recurrent, unspecified (F33.9) Active confirmed Problem Generalized anxiety disorder (77918272) Generalized anxiety disorder (F41.1) Active confirmed Problem Anxiety disorder (560963534) Anxiety disorder, unspecified (F41.9) 023 Active confirmed Problem Restless legs syndrome (61885132) Restless legs syndrome (G25.81) Active confirmed Problem Refractory migraine without aura (376684328) Migraine without aura, intractable, with status migrainosus (G43.011) Active confirmed Problem Migraine with aura (7565847) Migraine with aura, not intractable, without status migrainosus (G43.109) Active confirmed Problem Migraine without aura, not refractory (disorder) (804647050) Migraine, unspecified, not intractable, without status migrainosus (G43.909) Active confirmed Problem Sleep apnea (67128108) Sleep apnea, unspecified (G47.30) Active confirmed Problem Sleep disorder (72139459) Sleep disorder, unspecified (G47.9) Active confirmed Problem Carpal tunnel syndrome (64456015) Carpal tunnel syndrome, right upper limb (G56.01) Active confirmed Problem Chronic pain (36443873) Other chronic pain (G89.29) Active confirmed Problem Cataract (426057346) Unspecified cataract (H26.9) Active confirmed Problem Essential hypertension (45396367) Essential (primary) hypertension (I10) Active confirmed Problem Ventricular premature depolarization (388616460) Ventricular premature depolarization (I49.3) Active confirmed Problem Cardiac arrhythmia (481520818) Other specified cardiac arrhythmias (I49.8) Active confirmed Problem Cardiac arrhythmia (040771489) Cardiac arrhythmia, unspecified (I49.9) Active confirmed Problem Mild intermittent asthma (340466672) Mild intermittent asthma, uncomplicated (J45.20) Active confirmed Problem Gastro-esophageal reflux disease without esophagitis (821453057) Gastro-esophageal reflux disease without esophagitis (K21.9) Active confirmed Problem Appendicitis (72474676) Other appendicitis (K36) Active confirmed Problem Non-infective enteritis and colitis (229744241) Noninfective gastroenteritis and colitis, unspecified (K52.9) Active confirmed Problem Constipation (92715103) Constipation, unspecified (K59.00) Active confirmed Problem BIRCH - Nonalcoholic steatohepatitis (991711034) Nonalcoholic steatohepatitis (BIRCH) (K75.81) Active confirmed Problem Hidradenitis suppurativa (32617362) Hidradenitis suppurativa (L73.2) Active confirmed Problem Disorder of skin AND/OR subcutaneous tissue (63428581) Other specified disorders of the skin and subcutaneous tissue (L98.8) Active confirmed Problem Left foot drop (148643948331369) Foot drop, left foot (M21.372) Active confirmed Problem Pain of right shoulder region (finding) (0451334427) Pain in right shoulder (M25.511) Active confirmed Problem Pain of left knee joint (finding) (472920148732705) Pain in left knee (M25.562) Active confirmed Problem Arthralgia of the ankle and/or foot (141602809) Pain in left ankle and joints of left foot (M25.572) Active confirmed Problem Displacement of lumbar intervertebral disc without myelopathy (92971124) Other intervertebral disc displacement, lumbar region (M51.26) Active confirmed Problem Radiculopathy (70091048) Radiculopathy, site unspecified (M54.10) Active confirmed Problem Lumbar radiculopathy (090784857) Radiculopathy, lumbar region (M54.16) 023 Active confirmed Problem Cervicalgia (38899857) Cervicalgia (M54.2) Active confirmed Problem Left side sciatica (909314513954800) Sciatica, left side (M54.32) Active confirmed Problem Backache (784518924) Dorsalgia, unspecified (M54.9) Active confirmed Problem 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 kidney, acquired (N28.1) Active confirmed Problem Other noninflammatory disorders of ovary, fallopian tube and broad ligament (N83.8) 023 Active confirmed Problem Bradycardia (35757259) Bradycardia, unspecified (R00.1) Active confirmed Problem Pelvic and perineal pain (111075368) Pelvic and perineal pain (R10.2) Active confirmed Problem Tremor (89367380) Tremor, unspec ified (R25.1) Active confirmed Problem Hematuria (03579823) Hematuria, unspecified (R31.9) Active confirmed Problem Retention of urine (514414628) Retention of urine, unspecified (R33.9) Active confirmed Problem Hesitancy of micturition (9318990) Hesitancy of micturition (R39.11) Active confirmed Problem Dizziness and giddiness (828187818) Dizziness and giddiness (R42) Active confirmed Problem Hyperglycemia (99514802) Hyperglycemia, unspecified (R73.9) Active confirmed Problem Closed traumatic dislocation of patellofemoral joint (557698758) Unspecified subluxation of unspecified patella, initial encounter (S83.003A) Active confirmed Problem Reduced mobility (8457735) Other reduced mobility (Z74.09) Active confirmed Problem Temporomandibular joint disorder (40213208) Unspecified temporomandibular joint disorder, unspecified side (M26.609) Active confirmed Problem Cyst of left ovary (04993658437761052) Unspecified ovarian cyst, left side (N83.202) Active confirmed Problem Orthostatic headache (finding) (516934227) Headache with orthostatic component, not elsewhere classified (R51.0) Active confirmed Problem Depression (232523170) Depression, unspecified (F32.A) Active confirmed Problem Low back pain (596299049) Low back pain, unspecified (M54.50) Active confirmed Problem Body mass index 40+ - morbidly obese (773252634) Body mass index (BMI) 50-59.9 , adult (Z68.43) Active confirmed Problem Migraine without aura, not refractory (310845297) Migraine without aura and without status migrainosus, not intractable (G43.009) Active confirmed Problem Premenstrual tension syndrome (71891904) PMDD (premenstrual dysphoric disorder) (F32.81) Active confirmed Problem Hematochezia (331386430) Hematochezia (K92.1) Active confirmed Problem Postprocedural states (151721173) S/P lumbar microdiscectomy (Z98.890) Active confirmed Problem Lumbar discitis (909929957) Lumbar discitis (M46.46) Active confirmed Problem Long-term current use of antibiotic (956548237) Receiving intravenous antibiotic treatment at home (Z79.2) Active confirmed Problem Bilateral carpal tunnel syndrome (37772323458561715) Bilateral carpal tunnel syndrome (G56.03) Active confirmed Problem Medically comple x patient (Z78.9) Active confirmed Problem Cyst of uterine adnexa (56491537763726) Adnexal cyst (N94.9) Active confirmed Vital Signs Heart Rate 71 /min 07/29/2025 Temperature 97.5 degrees Fahrenheit 07/29/2025 Respiratory Rate 20 /min 07/29/2025 Height-cm 182.88 cm 07/29/2025 Blood pressure diastolic 72 mm Hg 07/29/2025 Oximetry 98 % 07/29/2025 Weight-kg 149.23 kg 03/02/2025 Height 72.00 in 07/29/2025 Blood pressure systolic 112 mm Hg 07/29/2025 Weight 329 lbs 03/02/2025 BMI 44.62 kg/m2 03/02/2025 Encounters Encounter Location Date Provider Diagnosis [address] [address] 08/05/2024 Pepito Xochitl Cough, unspecified R05.[address] [address] 07/29/2025 Dr. Faby Tiwari Acute low back pain with radicular symptoms, duration less than 6 weeks M54.[address] [address] 08/27/2024 Clara Longo Herniation of intervertebral disc at L2-L3 level M51.26 ; S/P diskectomy Z98.890 ; Lumbar radiculopathy M54.16 ; Dehiscence of operative wound, initial encounter T81.31XA and Morbid (severe) obesity due to excess calories E66.[address] [address] 09/24/2024 Clara Longo Other intervertebral disc displacement, lumbar region M51.26 ; Compression fracture of T12 vertebra, sequela S22.080S ; Muscle spasm of back M62.830 ; Blood infection B99.9 ; Nausea R11.0 and Sleeping difficulty G47.[address] [address] 10/15/2024 Clara Donta S/P lumbar microdiscectomy Z98.890 ; Other chronic pain G89.29 ; Lumbar discitis M46.46 ; Receiving intravenous antibiotic treatment at home Z79.2 ; Morbid (severe) obesity due to excess calories E66.01 ; Major depressive disorder, recurrent, unspecified F33.9 ; PTSD (post-traumatic stress disorder) F43.10 ; Poor sleep Z72.820 and Hematochezia K92.[address] [address] 10/27/2024 Clara Donta S/P lumbar microdiscectomy Z98.890 ; Other chronic pain G89.29 ; Lumbar discitis M46.46 ; Receiving intravenous antibiotic treatment at home Z79.2 ; Morbid (severe) obesity due to excess calories E66.01 ; Major depressive disorder, recurrent, unspecified F33.9 ; Hematochezia K92.1 ; Dyskinesia G24.9 and Migraine without aura and without status migrainosus, not intractable G43.009 [facility] [address] [place] [address] 11/03/2024 Clara Longo Migraine, unspecifie d, not intractable, without status migrainosus G43.909 ; Lumbar discitis M46.46 and Receiving intravenous antibiotic treatment at home Z79.2 [facility] [address] [place] [address] 11/17/2024 Clara Longo Migraine, unspecifie d, not intractable, without status migrainosus G43.909 ; Lumbar discitis M46.46 ; Receiving intravenous antibiotic treatment at home Z79.2 and Sleep disorder, unspecified G47.[address] [address] 12/14/2024 Clara Longo S/P lumbar microdiscectomy Z98.890 [...] due to drug H26.33 and Hirsutism L68.0 [place] [id number] 01/14/2025 Clara Longo Hyperlipidemia, unspecified E78.5 ; [...] Paronychia of finger of right hand L03.[address] [address] 01/21/2025 Dr. Kay Marie Upper respiratory infection, acute J06.9 ; Neck pain M54.2 ; Neck swelling R22.1 and Pharyngitis, unspecified etiology J02.[address] [address] 03/02/2025 Pepito Leung Left foot pain M79.6 72 and [facility] L30.[address] [address] 03/10/2025 Dr. Ranjan Patterson Hidradenitis suppurativa L73.2 and Dorsalgia, unspecified M54.[address] [address] 03/16/2025 Clara Longo S/P lumbar microdiscectomy Z98.890 [...] ; Hirsutism L68.0 and Candidal intertrigo B37.[address] [address] 03/30/2025 Clara Longo Acute cystitis witho ut hematuria N30.00 ; Cervical radiculopathy M54.12 and Episodic migraine G43.[address] [address] 04/12/2025 Kay Padilla Pain in thumb joint with movement of right hand M25.[address] [address] 04/15/2025 Clara Longo Arthritis M19.90 ; Hematoma of right lower extremity, subsequent encounter S80.11XD ; Injury of right thumb, subsequent encounter S69.91XD ; Iron deficiency E61.1 ; Restless legs syndrome G25.81 and Migraine, unspecified, not intractable, without status migrainosus G43.[address] [address] 05/18/2025 Clara Longo S/P lumbar microdiscectomy Z98.890 [...] aura, not intractable, without status migrainosus G43.[address] [address] 06/05/2025 Dr. Faby Tiwari Urinary frequency R35.[address] [address] 06/08/2025 Clara Longo Generalized anxiety disorder F41.1 ; Major depressive disorder, recurrent, unspecified F33.9 ; PMDD (premenstrual dysphoric disorder) F32.81 ; Mild intermittent asthma, uncomplicated J45.20 ; Adnexal cyst N94.9 ; Bleeding nose R04.0 and Cervicalgia M54.[address] [address] 06/28/2025 Clara Longo Dysfunction of Eustachian tube, unspecified laterality H69.[address] [address] 08/08/2024 Provider Migration [address] [address] 08/09/2024 Provider Migration [address] [address] 08/25/[address] [address] 08/28/[address] [address] 08/28/[address] [address] 09/30/[address] [address] 10/07/2024 Clara Longo Pain in left knee M25.[address] [address] 10/15/2024 Dr. Kay [facility] [address] [place] [address] 10/20/2024 Clara [facility] [address] [place] [address] 10/21/2024 [facility] [address] [place] [address] 10/22/2024 [facility] [address] [place] [address] 10/27/2024 Dr. Villanueva [facility] [address] [place] [address] 10/29/2024 Clara Longo Type 2 diabetes mellitus without complications E11.9 [facility] [address] [place] [address] 10/29/2024 Clara Longo Migraine with aura, not intractable, without status migrainosus G43.109 [facility] [address] [place] [address] 11/02/2024 Clara [facility] [address] [place] [address] 11/23/2024 [facility] [address] [place] [address] 11/30/2024 [facility] [address] [place] [address] 12/03/2024 Dr. Villanueva [facility] [address] [place] [address] 12/15/20[facility] [address] [place] [address] 01/07/2025 Dr. Kay Marie [facility] [facility] [address] [place] [address] 01/21/2025 Dr. [facility] [address] [place] [address] 01/22/2025 [facility] [address] [place] [address] 01/23/2025 Clara Longo Pharyngitis, unspecified etiology J02.9 Man [facility] [address] [place] [address] 02/08/2025 Dr. [facility]an[facility] [address] [place] [address] 02/17/2025 Clara [facility] [address] [place] [address] 03/10/2025 Dr. Kay Marie [facility] [address] [place] [address] 03/25/2025 [facility] [address] [place] [address] 04/01/2025 Clara Longo Urinary tract infection without hematuria, site unspecified N39.0 Man [facility] [address] [place] [address] 04/02/2025 Dr. Kay Marie Acute cystitis witho ut hematuria N30.00 ; Urinary tract infection without hematuria, site unspecified N39.0 and Muscle spasm of back M62.830 Man [facility] [address] [place] [address] 04/12/2025 Kay Padilla Pain in thumb joint with movement of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
--- OUTSIDE RECORDS SUMMARY | 2025-07-29 15:29 | XMS_ITS | Clinical Summary ---
Author Organization [facility] Address [address] [place] [address] Phone Care Team Providers Care Cd Technician Name Role Phone Unavailable Primary Care Provider [...] Comments Blood Pressure 134/72 08/16/2023 10:00 AM GLASS WASHER Pulse 56 08/16/2023 10:00 AM GLASS WASHER Temperature 36.5 C (97.7 F) 08/16/2023 10:00 AM GLASS WASHER Respiratory Rate 18 08/16/2023 10:0 0 AM GLASS WASHER Oxygen Saturation 96% 08/16/2023 10: 00 AM GLASS WASHER Inhaled Oxygen Concentration - - Weight 180.6 kg (398 lb 1.6 oz) 08/14/2023 7:57 AM GLASS WASHER Height 182.9 cm (6') 08/14/2023 1:41 AM GLASS WASHER Body Mass Index 53.99 08/14/2023 1:41 AM GLASS WASHER Plan of Treatment Health Maintenance Due Date [...] Advance Directives For more information, please contact: [phone] * Full Code (Latest Code Status on File) Date Activated Date Inactivated Comments 08/14/2023 2:49 AM 08/16/2023 6:35 PM
--- OUTSIDE RECORDS SUMMARY | 2025-07-29 15:29 | XMS_ITS | Patient Health Record ---
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 Name Role Phone Kay Marie MD Primary Care Provider Unavail able Rony Long Unavailable [phone] Fabiana Kruse Unavailable [phone] Allergies Allergen (clinical drug ingredient) Drug/Non Drug Allergy documented on EMR Reaction Allergy Type Onset Date Status Substance with sulfonamide structure and antibacterial mechanism of action (substance) SULFA (SULFONAMIDE ANTIBIOTICS) (uncoded) Unknown Allergy 11/18/2023 Active alprazolam Xanax Unknown Drug Allergy 11/18/2023 Activ e Reason For Referral No Information Medications Medication SIG (Take, Route, Frequency, Duration) Notes Start Date End Date Status Prazosin HCl 5 MG Capsule 2 capsules at bedtime Oral Once a day; Duration: 30 days 07/26/2025 11/23/2025 Active traZODone HCl 150 MG Tablet 2 tablets at bedtime Oral Once a day; Duration: 30 days 07/26/2025 Active HYDROcodone-Acetamino phen 5-325 MG Tablet Oral 01/14/2024 Active Prazosin HCl 1 MG Capsule 1 capsule at bedtime Orally Once a day; Duration: 30 days take with prazosin 5mg capsules Not-Taking Prazosin HCl 1 MG Capsule 1 capsule at bedtime Orally Once a day; Duration: 30 days Not-Taking Perphenazine 4 mg Tablet Oral 01/14/2024 Active Atorvastatin Calcium 10 MG Tablet Oral 01/14/2024 Active Famotidine 20 MG Tablet Oral 01/14/2024 Active ProAir HFA 108 (90 Base) MCG/ACT Aerosol Solution Inhalation 01/14/2024 Active Pregabalin 300 MG Capsule Oral 01/14/2024 Active Cyanocobalamin 1000 MCG/ML Solution Injection 01/14/2024 Active Rizatriptan Benzoate 10 MG Tablet Oral 01/14/2024 Active Naloxone HCl 4 MG/0.1ML Liquid Nasal 01/14/2024 Active oxyCODONE-Acetaminoph en 5-325 MG Tablet Oral 01/14/2024 Active Qulipta 60 MG Tablet Oral; Duration: 30 Days Active Pregabalin 150 MG Capsule Oral 01/14/2024 Active rOPINIRole HCl 2 MG Tablet Oral 01/14/2024 Active Vitamin D *Pick strength-form from [employer] for eRX* 01/14/2024 Active Trintellix 5 MG Tablet 1 tablet Orally Once a day; Duration: 7 days sample given 07/26/2025 Active Xarelto 20 MG Tablet Oral 01/14/2024 Active Trintellix 10 MG Tablet 1 tablet Orally Once a day; Duration: 30 day(s) 07/26/2025 Active Spironolactone 50 MG Tablet Oral 01/14/2024 Active Metoprolol Succinate ER 50 MG Tablet Extended Release 24 Hour Oral 01/14/2024 Active Nystatin 902918 UNIT/GM Powder External 01/14/2024 Active Ondansetron 4 MG Tablet Disintegrating Oral 01/14/2024 Active fentaNYL 12 MCG/HR Patch 72 Hour Transdermal; Duration: 30 Days Active Miebo 1.338 GM/ML Solution 1 drop into affected eye as needed Ophthalmic Four times a day Active Metoprolol Succinate ER 25 MG Tablet Extended Release 24 Hour Oral 01/14/2024 Active Belsomra 20 MG Tablet 1 tablet at bedtime Orally Once a day; Duration: 30 days 07/26/2025 11/23/2025 Active Ozempic (1 MG/DOSE) 4 MG/3ML Solution Pen-injector Subcutaneous *Pick strength-form from [employer] for eRX* 01/14/2024 Active Immunizations Vaccine Route Administration Date Status [...] Risk Notes Problem Moderate recurrent major depression (33937527) Major depressive disorder, recurrent, moderate (F33.1) Active confirmed Problem Generalized anxiety disorder (32114455) Generalized anxiety disorder (F41.1) Active confirmed Problem Insomnia (366431316) Other insomnia (G47.09) Active confirmed Problem Binge eating disorder (631622566) Binge eating disorder (F50.81) Active confirmed Problem Chronic posttraumatic stress disorder (910892218) Chronic posttraumatic stress disorder (F43.12) Active confirmed Problem Moderate recurrent major depression (09039713) Moderate recurrent major depression (F33.1) Active confirmed Problem Mild binge-eatin g disorder (F50.810) Active confirmed Vital Signs Heart Rate 69 /min 07/26/2025 Height-cm 182.88 cm 07/26/2025 Blood pressure diastolic 79 mm Hg 07/26/2025 Weight-kg 149.69 kg 07/26/2025 Height 72.00 in 07/26/2025 Blood pressure systolic 135 mm Hg 07/26/2025 Weight 330 lbs 07/26/2025 BMI 44.75 kg/m2 07/26/2025 Encounters Encounter Location Date Provider Diagnosis [facility] [employer] [address] [facility] [address] [facility] [address] [place] [address] 07/26/2025 Rony Long Major depressive disorder, recurrent, moderate F33.1 ; Generalized anxiety disorder F41.1 ; Chronic posttraumatic stress disorder F43.12 ; Nicotine use Z72.0 ; Other insomnia G47.09 and Mild binge-eating disorder F50.810 [employer] [facility] [address] [facility] [address] [place] [address] 08/14/2024 Fabiana Kruse Moderate recurrent major depression F33.1 ; Generalized anxiety disorder F41.1 and Chronic posttraumatic stress disorder F43.12 [employer] [facility] [address] [facility] [address] [place] [address] 08/25/2024 Fabiana Aixa Moderate recurrent major depression F33.1 ; Generalized anxiety disorder F41.1 and Chronic posttraumatic stress disorder F43.12 [facility], [facility] [address] [address] 09/22/2024 Rony Long Generalized anxiety disorder F41.1 ; Major depressive disorder, recurrent, moderate F33.1 ; Chronic posttraumatic stress disorder F43.12 ; Other insomnia G47.09 ; Mild binge-eating disorder F50.810 and Major depressive disorder, recurrent severe without psychotic features 296.33 [facility], [place] [address] [address] 09/30/2024 Fabiana Aixa Moderate recurrent major depression F33.1 ; Generalized anxiety disorder F41.1 and Chronic posttraumatic stress disorder F43.12 [place] [address] [address] 10/23/2024 Fabiana Aixa Moderate recurrent major depression F33.1 ; Generalized anxiety disorder F41.1 and Chronic posttraumatic stress disorder F43.12 [place] [address] [facility] [address] [address] 10/26/2024 Rony Long Generalized anxiety disorder F41.1 ; Major depressive disorder, recurrent, moderate F33.1 ; Chronic posttraumatic stress disorder F43.12 ; Other insomnia G47.09 and Mild binge-eating disorder F50.810 [place] [address] [address] 11/02/2024 Fabinaa Aixa Moderate recurrent major depression F33.1 ; Generalized anxiety disorder F41.1 and Chronic posttraumatic stress disorder F43.12 [facility], [place] [address] [address] 11/20/2024 Fabiana Aixa Encounter for screen ing for depression Z13.31 ; Moderate recurrent major depression F33.1 ; Generalized anxiety disorder F41.1 and Chronic posttraumatic stress disorder F43.12 [facility], [place] [address] [address] 12/09/2024 Fabiana Aixa Encounter for screen ing for depression Z13.31 ; Moderate recurrent major depression F33.1 ; Generalized anxiety disorder F41.1 and Chronic posttraumatic stress disorder F43.[address] [facility] [address] [place] [address] 12/25/2024 Fbaiana Aixa Moderate recurrent major depression F33.1 ; Generalized anxiety disorder F41.1 and Chronic posttraumatic stress disorder F43.[address] [facility] [address] [place] [address] 01/07/2025 Fabianavera Kruse Encounter for screen ing for depression Z13.31 ; Moderate recurrent major depression F33.1 ; Generalized anxiety disorder F41.1 and Chronic posttraumatic stress disorder F43.[address] [facility] [address] [place] [address] 01/11/2025 Rony Long Encounter for screen ing for depression Z13.31 ; Encounter for screening for cardiovascular disorders Z13.6 ; Nicotine use Z72.0 ; Generalized anxiety disorder F41.1 ; Major depressive disorder, recurrent, moderate F33.1 ; Chronic posttraumatic stress disorder F43.12 ; Other insomnia G47.09 and Mild binge-eating disorder F50.[address] [address] 03/04/2025 Fabiana Aixa Generalized anxiety disorder F41.1 ; Chronic posttraumatic stress disorder F43.12 ; Moderate recurrent major depression F33.1 and Encounter for screening for depression Z13.[address] [address] 03/15/2025 Rony Long Major depressive disorder, recurrent, moderate F33.1 ; Encounter for screening for depression Z13.31 ; Generalized anxiety disorder F41.1 ; Chronic posttraumatic stress disorder F43.12 ; Encounter for screening for cardiovascular disorders Z13.6 ; Nicotine use Z72.0 ; Other insomnia G47.09 and Mild binge-eating disorder F50.[address] [address] 03/22/2025 Fabiana Aixa Generalized anxiety disorder F41.1 ; Chronic posttraumatic stress disorder F43.12 and Moderate recurrent major depression F33.[address] [address] 04/20/2025 Fabiana Aixa Generalized anxiety disorder F41.1 ; Chronic posttraumatic stress disorder F43.12 and Moderate recurrent major depression F33.1 [facility] [address] [place] [address] 04/20/2025 Rony Long Major depressive disorder, recurrent, moderate F33.1 ; Generalized anxiety disorder F41.1 ; Chronic posttraumatic stress disorder F43.12 ; Nicotine use Z72.0 ; Other insomnia G47.09 and Mild binge-eating disorder F50.810 [place] [address] [place] [address] 05/03/2025 Fabiana Aixa Moderate recurrent major depression F33.1 ; Generalized anxiety disorder F41.1 and Chronic posttraumatic stress disorder F43.12 [facility] [address] [place] [address] 05/17/2025 Fabiana Aixa Moderate recurrent major depression F33.1 ; Generalized anxiety disorder F41.1 and Chronic posttraumatic stress disorder F43.12 [place] [address] [place] [address] 05/31/2025 Fbaiana Aixa Moderate recurrent major depression F33.1 ; Generalized anxiety disorder F41.1 and Chronic posttraumatic stress disorder F43.12 [facility] [address] [place] [address] 06/07/2025 Rony Long Major depressive disorder, recurrent, moderate F33.1 ; Generalized anxiety disorder F41.1 ; Chronic posttraumatic stress disorder F43.12 ; Nicotine use Z72.0 ; Other insomnia G47.09 and Mild binge-eating disorder F50.810 [place] [address] [place] [address] 06/14/2025 Fabiana Aixa Moderate recurrent major depression F33.1 ; Generalized anxiety disorder F41.1 and Chronic posttraumatic stress disorder F43.12 [facility] [address] [place] [address] 06/28/2025 Fabiana Aixa Major depressive disorder, recurrent, moderate F33.1 ; Generalized anxiety disorder F41.1 and Chronic posttraumatic stress disorder F43.12 [place] [address] [place] [address] 07/07/2025 Rony Long Major depressive disorder, recurrent, moderate F33.1 ; Generalized anxiety disorder F41.1 ; Chronic posttraumatic stress disorder F43.12 ; Nicotine use Z72.0 ; Other insomnia G47.09 and Mild binge-eating disorder F50.810 [facility], [facility] [address] [place] [address] 07/12/2025 Fabiana Aixa Moderate recurrent major depression F33.1 ; Generalized anxiety disorder F41.1 and Chronic posttraumatic stress disorder F43.12 [facility] [address] [place] [address] 07/26/2025 Fabiana Aixa Moderate recurrent major depression F33.1 ; Generalized anxiety disorder F41.1 and Chronic posttraumatic stress disorder F43.12 [facility], [facility] [address] [place] [address] 09/10/2024 [facility] [address] [place] [address] 09/22/2024 [facility], [facility] [address] [place] [address] 11/05/2024 [facility], [facility] [address] [place] [address] 07/29/2024 [facility], [facility] [address] [place] [address] 08/14/2024 [facility], [facility] [address] [place] [address] 09/06/2024 Rony Long [facility], [facility] [address] [place] [address] 09/07/2024 [facility], [facility] [address] [place] [address] 09/12/2024 Rony Long [facility], [facility] [address] [place] [address] 09/14/2024 Rony Long Other insomnia G47.0 9 [facility] [address] [place] [address] 09/21/2024 [facility], [facility] [address] [place] [address] 10/15/2024 Rony Long Other insomnia G47.0 9 [facility], [facility] [address] [place] [address] 10/22/2024 [facility], [facility] [address] [place] [address] 10/22/2024 [facility], [facility] [address] [place] [address] 10/22/2024 [facility], [facility] [address] [place] [address] 10/22/2024 [facility], [facility] [address] [place] [address] 10/22/2024 [facility], [facility] [address] [place] [address] 10/23/2024 Rnoy Long Other insomnia G47.0 9 [facility], [facility] [address] [place] [address] 11/02/2024 [facility], [facility] [address] [place] [address] 11/02/2024 [facility], [facility] [address] [place] [address] 11/02/2024 [facility], [facility] [address] [place] [address] 11/25/2024 [facility] [address] [place] [address] 12/16/2024 Rony Long Other insomnia G47.0 9 [facility], [facility] [address] [place] [address] 12/23/2024 [facility], [facility] [address] [place] [address] 12/23/2024 [facility], [facility] [address] [place] [address] 02/11/2025 [facility], [facility] [address] [place] [address] 02/16/2025 Rony Long [facility], [facility] [address] [place] [address] 03/28/2025 Rony Long Major depressive disorder, recurrent, moderate F33.1 [place] [address] [place] [address] 04/02/2025 Rony Long [facility], [place] [address] [place] [address] 05/23/2025 Rony Long [place] [address] [place] [address] 05/25/2025 Rony Long [place] [address] [facility] [address] [place] [address] 07/25/2025 Rony Crowella Assessments Encounter Date Diagnosis (ICD [...] Moderate recurrent major depression (ICD-10 - F33.1) 08/14/2024 Moderate recurrent major depression (ICD-10 - [...] depressive disorder, recurrent, moderate (ICD-10 - F33.1) 07/12/2025 Moderate recurrent major depression (ICD-10 - F33.1) 07/26/2025 Moderate recurrent major depression (ICD-10 - F33.1) 07/26/2025 Major depressive disorder, recurrent, moderate (ICD-10 - F33.1) 07/26/2025 Generalized anxiety disorder (ICD-10 - F41.1) 07/26/2025 Generalized anxiety disorder (ICD-10 - F41.1) 07/12/2025 Generalized anxiety disorder (ICD-10 - F41.1) 07/07/2025 Generalized anxiety disorder (ICD-10 - F41.1) [...] 08/14/2024 Generalized anxiety disorder (ICD-10 - F41.1) 01/07/2025 [...] Chronic posttraumatic stress disorder (ICD-10 - F43.12) 08/14/2024 Chronic posttraumatic stress disorder (ICD-10 - [...] stress disorder (ICD-10 - F43.12) cont prazosin 07/12/2025 Chronic posttraumatic stress disorder (ICD-10 - F43.12) 07/26/2025 Chronic posttraumatic stress disorder (ICD-10 - F43.12) 07/26/2025 Chronic posttraumatic stress disorder (ICD-10 - F43.12) cont prazosin 07/26/2025 Nicotine use (ICD-10 - Z72.0) 03/15/2025 Encounter for screening for cardiovascular disorders (ICD-10 - Z13.6) 07/07/2025 Nicotine use (ICD-10 - Z72.0) 06/07/2025 Nicotine use (ICD-10 - Z72.0) 04/20/2025 Other insomnia (ICD-10 - G47.09) 03/04/2025 Encounter for screening for depression (ICD-10 - Z13.31) 09/22/2024 Other insomnia (ICD-10 - G47.09) 01/11/2025 Generalized anxiety disorder (ICD-10 - F41.1) 10/26/2024 Mild binge-eating disorder (ICD-10 - F50.810) 01/11/2025 Major depressive disorder, recurrent, moderate (ICD-10 - F33.1) 09/22/2024 Mild binge-eating disorder (ICD-10 - F50.810) 03/15/2025 Nicotine use (ICD-10 - Z72.0) 04/20/2025 Mild binge-eating disorder (ICD-10 - F50.810) 06/07/2025 Other insomnia (ICD-10 - G47.09) 07/07/2025 Other insomnia (ICD-10 - G47.09) 07/26/2025 Other insomnia (ICD-10 - G47.09) 07/26/2025 Mild binge-eating disorder (ICD-10 - F50.810) 07/07/2025 Mild binge-eating disorder (ICD-10 - F50.810) 06/07/2025 Mild binge-eating disorder (ICD-10 - F50.810) 03/15/2025 Other insomnia (ICD-10 - G47.09) 01/11/2025 Chronic posttraumatic stress disorder (ICD-10 - F43.12) 09/22/2024 Major depressive disorder, recurrent severe without psychotic features (ICD9-CM - 296.33) 01/11/2025 Other insomnia (ICD-10 - G47.09) 03/15/2025 Mild binge-eating disorder (ICD-10 - F50.810) 01/11/2025 Mild binge-eating disorder (ICD-10 - F50.810) 08/14/2024 Other Client reports she has some really distressing dreams of late. She says that she is not feeling as distressed today. She is chalking the mood up to hormones. She also stays she has a tendency toward seasonal affective disorder. She is considering going back to school, taking just 1 class. 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 Therapist actively [...] the surgery. Her aunt that handles her Taskdoer fund from a massive heart attack a few days before [place]. Her cousin will now handle the Taskdoer. The cousin has been to the ER several times due to anxiety. The cousin turned to the trust to attorneys. Client focused on the trauma triggers that have arisen with this round of back issues. Therapist actively listened to client and utilized a cognitive behavioral intervention to help client explore strategies to reduce her anxiety/trauma triggers. PHQ=16 moderately severe MRAIIA=15 severe 10/23/2024 Other Client reports she has been back to the hospital since her back surgery. She has infections in her back. The infection is eating away at her discs. Initially they wanted her to go to [facility] care facility for 6-12 months. It was [...] sleep. Plan: - Re-sent Belsomra prescription to [facility]. - Follow up with insurance to ensure [...] and Belsomra prescriptions and send them to [facility]. - Monitor patient's sleep quality and adjust medications as needed. 5. Follow-up appointments Plan: - Request [facility] to call the patient to schedule a [...] her self worth (handouts: The Basics of Self-[place], Self Affirmations). 01/07/2025 Other Client reports having [...] at bedtime - Continue trazodone - Continue [facility] Physical Disability and Rehabilitation Assessment: Patient reports significant improvement in physical function, engaging in physical therapy and pool exercises. This bean substantial progress from a previous prognosis of never walking again and potential prison placement in October. Despite improvement, long-term rehabilitation [...] . PHQ=18 moderately severe MARIIA=18 severe 04/20/2025 John Arnold presents with worsening depression symptoms, including [...] perimenopause with planned blood work evaluation by search marketing specialist. Plan: - Blood work as arranged by search marketing specialist the note is transcribed using speech recognition software. It is a reflection of a visit with the patient. It might have some inaccuracy, including medication names and transcribing errors, though efforts have been made to correct them. 07/12/2025 Other Client reports she has talked with her workers compensation attorney as well as a compliance attorney to find out what her options are regarding a divorce and financial liability of doing so. She also focused on starting school next March. She has concenrs about physical issues related to loading and unloading her wheelchair from her car, getting to class when there is fresh snow on the ground, etc. Therapist actively listened to client and utilized a cognitive behavioral intervention to help client explore strategies to reduce her anxiety about these issues. PHQ=8 mild MARIIA=3 moderate 07/26/2025 Other Client reports her attorneys have helped her to find a place of her own so she can begin divorce procedings. Therapist actively listened to client asnd asked questions for clarification. Therapist then utilized a cognitive behavioral intervention to assist client with exploring strategies to reduce her current level of anxiety and depression. Client feels she is not doin well at all with her depression and staff have been able to get her in to see the BANKING REPRESENTATIVE by cutting therapy session short. PHQ=23 severe MARIIA=20 severe 11/05/2024 Other Electronic Pri[employer] r Authorization was requested for Belsomra 15 MG Tablet. Provider can order medication once approval received. 10/22/2024 Other Electronic [employer] Authorization was requested for Belsomra 20 MG Tablet. Provider can order medication once approval received. Plan Of Treatment Next Appt Details Provider Name:Fabiana Kruse , 08/04/2025 09:00:00 AM, [address], [place], [address], Provider Name:Rony garland, 08/09/2025 10:15:00 AM, [address], [place], [address], Provider Name:Fabiana Kruse , 08/11/2025 11:00:00 AM, [address], [place], [address], Provider Name:Fabiana Kruse , 08/18/2025 10:00:00 AM, [address], [place], [address], Provider Name:Fabiana Kruse , 08/27/2025 11:00:00 AM, [address], [place], [address], Provider Name:Fabiana Kruse , 08/30/2025 11:00:00 AM, [address], [place], [address], Provider Name:Fabiana Kruse , 09/06/2025 11:00:00 AM, [address], [place], [address], Provider Name:Fabiana Kruse , 09/13/2025 11:00:00 AM, [address], [place], [address], Insurance Providers Payer Name Payer Address Payer Phone Subscriber Number Group Number Insured Name Patient Relationship to Insured Coverage Start Date Coverage End Date [employer] [employer] [address] [place] [address] [id number] MARAH ARNOLD Self - patient is the insured [employer] [facility] [address] [place] [address] [id number] RONNI ARNOLD Spouse - patient is the [...] pain. Surgical History Surgery Date(Month/Year) Hernia repair (54316971) Tonsillectomy (970861944) Removal of gallbladder (87806) Gastric bypass for obesity (89119) Fallopian tube excision (789194639) Procedure on back ([id number])
== END 2025-07-29 12:54 | disposition home or self-care (01) ==
LOC: CHSIMG 12:55
PROVIDERS: PCP Family Medicine; Visit Provider Obstetrics & Gynecology
DX: Z12.31 Encounter for screening mammogram for malignant neoplasm of breast (principal)
CPT/HCPCS: 77063; 77067